=== PATIENT | male | born 1965 | race Caucasian/White ===

== ENCOUNTER 2018-05-03 17:58 | Emergency (ER) | payer OTHER ==
[~2018-05-03] VITALS: Ht 170.2 cm; Wt 195.9 kg
[~2018-05-03 17:58] MED LIST: ADAL40PEN; ALBIPROI INH; ALBU2.5V5 NEB; ALBU90OI INH; ALBU90OI61 INH; AMLO10 PO; AZIT250 PO; AZIT500 PO; BUME1 PO; BUME2 PO; BUPR150ER PO; BUSP10 PO; Bactrim 400-801 EACH PO; CEFP200 PO; CELEXA; CEPH500 PO; CIPR500 PO; CITA20 PO; CLIN150 PO; CLIN300 PO; CLOBETTC TOP; CLOT1TC TOP; COMBIVENT RESPIM4 GM IH; CYCL10 PO; Cleocin HCl300 MG PO; DICYCLOMINE HCL PO; DULO60 PO; Diflucan100 MG PO; ERYT.5TO LEFTEYE; ESCI10; ESCI20 PO; FLUC150A PO; FLUC200 PO; FLUO.05TC TOP; FLUSAL2505 IH; FLUSAL2505 INH; FOLI1 PO; FURO40 PO; GUAI600T33 PO; Gas-X80 MG PO; HYDACE25S PR; HYDACE5 PO; HYDCHL25 PO; HYDMOR2 PO; HYOS.125 SL; IBUP800 PO; IRON325 MG PO; LACT10SY PO; LEVFLO250 PO; LEVO750 PO; LISI10 PO; LORA1 PO; LOSA50 PO; LOSARTAN-HCTZ1 EAC1 PO; MAGIC MOUTHWASH; MELA3 PO; METO100 PO; METO25ER PO; METO50 PO; MUPI2TO TOP; NAPR500 PO; NEBI5 PO; NYST100P TOP; OMEPRAZOLE MAGN20 MG PO; ONDA4 PO; OXYACE5T PO; OXYACE7.5T PO; POTCHL10ER PO; POTCHL20ER PO; PRED10 PO; PRED20 PO; PROM25 PO; Percocet 5-3251 EACH PO; Prednisone20 MG PO; RESPIMAT; RXCEPH500 PO; RXCLIN PO; RXCYCL10 PO; RXHYDACE PO; RXONDA4ODT MM; RXOXYACE PO; RXPROCODSY PO; RXSULTRIDS PO; SACC250C PO; SIME80CH PO; SULTRIDS PO; TESTOSTERON CYP IM; TESTOSTERONE CYPIONA PO; TRAM50 PO; VITAMIN D22000 UNIT PO; VITS; Verotin-Gr Cap1 EACH PO; ZINCODVICR TOP
[2018-05-03 18:57] LABS: BASOPHILS ABSOLUTE AUTO 0.05 K/mm3 (0.00-0.23); BASOPHILS PERCENT AUTO 0 % (0-2); EOSINOPHILS ABSOLUTE AUTO 0.13 K/mm3 (0.00-0.68); EOSINOPHILS PERCENT AUTO 1 % (0-6); Hematocrit 43.1 % (37.0-53.0); Hemoglobin 14.2 g/dL (13.5-17.5); IMMATURE GRAN ABSOLUTE AUTO 0.04 K/mm3 (0.00-0.10); IMMATURE GRAN PERCENT AUTO 0 % (0-1); LYMPHOCYTES ABSOLUTE AUTO 1.99 K/mm3 (0.84-5.20); LYMPHOCYTES PERCENT AUTO 15 % (21-46); MONOCYTES ABSOLUTE AUTO 0.97 K/mm3 (0.16-1.47); MONOCYTES PERCENT AUTO 7 % (4-13); Mean Corpuscular HGB 30.7 pg (26.0-34.0); Mean Corpuscular HGB Conc 32.9 g/dL (31.5-36.5); Mean Corpuscular Volume 93 fL (80-100); Mean Platelet Volume 10.1 fL (9.1-12.4); NEUTROPHILS PERCENT AUTO 76 % (41-73); Platelet Count 173 K/mm3 (150-400); RDW Coefficient Variation 12.6 % (11.7-14.2); RDW Standard Deviation 43.1 fL (35.1-46.3); Red Blood Cell Count 4.63 M/mm3 (4.30-5.90); White Blood Cell Count 13.18 K/mm3 (4.00-11.30)
[2018-05-03 19:25] LABS: Alanine Aminotransfer (ALT/SGP 36 U/L (12-78); Albumin, Blood 3.6 g/dL (3.4-5.0); Albumin/Globulin Ratio 0.9 (0.8-1.8); Alk Phos 96 U/L (50-136); Anion Gap 5 mmol/L (6-16); Aspartate Aminotrans (AST/SGOT 18 U/L (12-37); Bilirubin, Total 1.3 mg/dL (0.1-1.0); Blood Urea Nitrogen 9 mg/dL (8-24); Bun/Creatinine Ratio 14.5 (12.0-20.0); CO2, Blood 31 mmol/L (21-32); Calcium, Blood 8.6 mg/dL (8.5-10.1); Chloride, Blood 101 mmol/L (98-108); Creatinine, Blood 0.62 mg/dL (0.60-1.20); Globulin, Blood 4.1 g/dL (2.2-4.0); Glomerular Filtration Rate >60 (60-); Glucose, Blood 100 mg/dL (70-99); Potassium, Blood 3.7 mmol/L (3.5-5.5); Sodium, Blood 137 mmol/L (136-145); Total Protein, Blood 7.7 g/dL (6.4-8.2)
[2018-05-03 23:31] LABS: Influenza A Negative (NEGATIVE); Influenza B Negative (NEGATIVE)
== END 2018-05-03 23:30 | disposition home or self-care (01) ==
LOC: ER 17:58
PROVIDERS: Emergency Medicine; Physician Assistant
DX: R53.81 Other malaise (principal); R53.83 Other fatigue; D72.829 Elevated white blood cell count, unspecified; R52 Pain, unspecified; I11.0 Hypertensive heart disease with heart failure; I50.9 Heart failure, unspecified; J45.909 Unspecified asthma, uncomplicated; J44.9 Chronic obstructive pulmonary disease, unspecified; F32.9 Major depressive disorder, single episode, unspecified; F41.9 Anxiety disorder, unspecified; E66.01 Morbid (severe) obesity due to excess calories; M19.90 Unspecified osteoarthritis, unspecified site; K76.0 Fatty (change of) liver, not elsewhere classified; Z88.0 Allergy status to penicillin; Z88.2 Allergy status to sulfonamides; Z88.6 Allergy status to analgesic agent; Z88.8 Allergy status to other drugs, medicaments and biological substances; Z79.1 Long term (current) use of non-steroidal anti-inflammatories (NSAID); Z79.899 Other long term (current) drug therapy
CPT/HCPCS: 36415; 71046; 80053; 84484; 85025; 87804; 96374; 99283-25; J1885

== ENCOUNTER 2018-05-31 10:50 | Observation (INO) | payer OTHER ==
[~2018-05-31] VITALS: Ht 170.2 cm; Wt 195.0 kg
[2018-05-31 11:31] LABS: BASOPHILS ABSOLUTE AUTO 0.04 K/mm3 (0.00-0.23); BASOPHILS PERCENT AUTO 0 % (0-2); EOSINOPHILS ABSOLUTE AUTO 0.04 K/mm3 (0.00-0.68); EOSINOPHILS PERCENT AUTO 0 % (0-6); Hematocrit 44.3 % (37.0-53.0); Hemoglobin 14.6 g/dL (13.5-17.5); IMMATURE GRAN ABSOLUTE AUTO 0.03 K/mm3 (0.00-0.10); IMMATURE GRAN PERCENT AUTO 0 % (0-1); LYMPHOCYTES ABSOLUTE AUTO 1.45 K/mm3 (0.84-5.20); LYMPHOCYTES PERCENT AUTO 16 % (21-46); MONOCYTES ABSOLUTE AUTO 0.57 K/mm3 (0.16-1.47); MONOCYTES PERCENT AUTO 6 % (4-13); Mean Corpuscular HGB 30.7 pg (26.0-34.0); Mean Corpuscular Volume 93 fL (80-100); Mean Platelet Volume 10.5 fL (9.1-12.4); NEUTROPHILS ABSOLUTE AUTO 7.08 K/mm3 (1.96-9.15); NEUTROPHILS PERCENT AUTO 77 % (41-73); Platelet Count 146 K/mm3 (150-400); RDW Coefficient Variation 12.4 % (11.7-14.2); Red Blood Cell Count 4.75 M/mm3 (4.30-5.90); White Blood Cell Count 9.21 K/mm3 (4.00-11.30)
[2018-05-31 11:53] LABS: Alanine Aminotransfer (ALT/SGP 47 U/L (12-78); Albumin, Blood 3.6 g/dL (3.4-5.0); Albumin/Globulin Ratio 0.9 (0.8-1.8); Alk Phos 91 U/L (50-136); Anion Gap 5 mmol/L (6-16); Aspartate Aminotrans (AST/SGOT 20 U/L (12-37); Bilirubin, Total 1.7 mg/dL (0.1-1.0); Blood Urea Nitrogen 8 mg/dL (8-24); Bun/Creatinine Ratio 11.9 (12.0-20.0); CO2, Blood 30 mmol/L (21-32); Calcium, Blood 8.7 mg/dL (8.5-10.1); Chloride, Blood 102 mmol/L (98-108); Creatinine, Blood 0.68 mg/dL (0.60-1.20); Globulin, Blood 3.8 g/dL (2.2-4.0); Glomerular Filtration Rate >60 (60-); Glucose, Blood 91 mg/dL (70-99); Potassium, Blood 3.7 mmol/L (3.5-5.5); Sodium, Blood 137 mmol/L (136-145); Total Protein, Blood 7.4 g/dL (6.4-8.2); Troponin I <0.015 ng/mL (0.000-0.040)
[2018-05-31 14:49] LABS: PCO2 Arterial 53.1 mmHg (35-45); PO2 Arterial 54.2 mmHg (80-100); pH Blood Arterial 7.39 (7.35-7.45)
[2018-05-31 15:40] LABS: Influenza A Negative (NEGATIVE); Influenza B Negative (NEGATIVE)
[2018-05-31] MEDS ORDERED: DULERA 100 MCG/13 GM INH (16:11)
--- NOTE | 2018-05-31 18:41 | NUR ---
PT ARRIVED TO MEDICAL FLOOR VIA W/C.
[2018-06-01 04:41] LABS: PCO2 Arterial 54.4 mmHg (35-45); PO2 Arterial 63.5 mmHg (80-100); pH Blood Arterial 7.38 (7.35-7.45)
--- NOTE | 2018-06-01 05:07 | NUR ---
NOC SHIFT SUMMARY PT HAS BEEN PLEASANT AND COOPERATIVE WITH CARE THIS NIGHT. HE IS AAOX4. RESP HAVE BEEN EVEN AND UNLABORED. HE DOES SLEEP RECLINING IN CHAIR WITH BIPAP ON AND 1L O2 BLED IN. VSS. TREATED FOR CHRONIC HIP PAIN WITH TORADOL AND ROXICODONE. PAIN MUCH IMPROVED PER PT. APPEARS IN NO ACUTE DISTRESS. NO ACUTE CHANGES THIS NIGHT.
[2018-06-01] MEDS ORDERED: OXYC10TA19 PO (12:49)
--- NOTE | 2018-06-01 13:30 | NUR ---
132 PT DISHCARGED HOME VIA PERSONAL VEHICLE ACCOMPANIED AND DRIVEN BY . PT TO FACILITY ENTRANCE VIA W/C BY PER HER REQUEST. IV REMOVED, D/C PAPERWORK REVIEWED WITH PT AND COPY PROVIDED. NO NEW RX. PT WITH CLEAR LUNGS, ON RA THROGHOUT SHIFT. NO NEW CHANGES.
== END 2018-06-01 13:25 | disposition home or self-care (01) ==
LOC: ER 10:50 → MEDS 10:51 → ER 10:51 → MEDS 10:51 → ER 15:02 → MEDS 15:02 → ENPENDDIS 06-01 11:30 → MEDS 06-01 13:25
PROVIDERS: Emergency Medicine; Physician Assistant; ADMIT Internal Medicine Endocrinology, Diabetes & Metabolism
DX: J96.21 Acute and chronic respiratory failure with hypoxia (principal); J96.22 Acute and chronic respiratory failure with hypercapnia; L40.50 Arthropathic psoriasis, unspecified; H57.89 Other specified disorders of eye and adnexa; J44.9 Chronic obstructive pulmonary disease, unspecified; F32.9 Major depressive disorder, single episode, unspecified; K21.9 Gastro-esophageal reflux disease without esophagitis; I50.30 Unspecified diastolic (congestive) heart failure; I45.10 Unspecified right bundle-branch block; Z99.89 Dependence on other enabling machines and devices; E66.2 Morbid (severe) obesity with alveolar hypoventilation; Z68.44 Body mass index [BMI] 60.0-69.9, adult; Z88.6 Allergy status to analgesic agent; Z88.0 Allergy status to penicillin; Z91.048 Other nonmedicinal substance allergy status; Z88.2 Allergy status to sulfonamides; Z88.8 Allergy status to other drugs, medicaments and biological substances; Z79.899 Other long term (current) drug therapy
CPT/HCPCS: 36415; 36600; 71046; 80053; 82803; 84484; 85025; 87081; 87804; 93005; 93010; 94640; 94644; 94760; 94762; 96372; 96374; 96376; 99285-25; G0378; J1650; J1885

== ENCOUNTER 2018-09-15 14:54 | Emergency (ER) | payer OTHER ==
[~2018-09-15] VITALS: Ht 170.2 cm; Wt 199.6 kg
[~2018-09-15 14:54] MED LIST changes: +DULERA 100 MCG/13 GM INH; +OXYC10TA19 PO
[2018-09-15] MEDS ORDERED: Prednisone20 MG PO (16:03)
== END 2018-09-15 16:16 | disposition home or self-care (01) ==
LOC: ER 14:54
DX: M75.51 Bursitis of right shoulder (principal); Z88.0 Allergy status to penicillin; Z88.2 Allergy status to sulfonamides; Z88.1 Allergy status to other antibiotic agents; Z88.6 Allergy status to analgesic agent; Z88.8 Allergy status to other drugs, medicaments and biological substances; Z79.899 Other long term (current) drug therapy; I11.0 Hypertensive heart disease with heart failure; I50.9 Heart failure, unspecified; J44.9 Chronic obstructive pulmonary disease, unspecified; F32.9 Major depressive disorder, single episode, unspecified; E66.01 Morbid (severe) obesity due to excess calories
CPT/HCPCS: 73030; 96372; 99283-25; J1885

== ENCOUNTER → 2019-09-09 | Outpatient (CLI) | payer OTHER ==
[~2019-09-09] MED LIST changes: -VITAMIN D22000 UNIT PO; +VITAMIN D250000 UNIT PO
[2019-09-09 14:26] LABS: BASOPHILS ABSOLUTE AUTO 0.04 K/mm3 (0.00-0.23); BASOPHILS PERCENT AUTO 1 % (0-2); EOSINOPHILS ABSOLUTE AUTO 0.18 K/mm3 (0.00-0.68); EOSINOPHILS PERCENT AUTO 3 % (0-6); Hematocrit 43.9 % (37.0-53.0); IMMATURE GRAN ABSOLUTE AUTO 0.02 K/mm3 (0.00-0.10); IMMATURE GRAN PERCENT AUTO 0 % (0-1); LYMPHOCYTES ABSOLUTE AUTO 1.29 K/mm3 (0.84-5.20); LYMPHOCYTES PERCENT AUTO 18 % (21-46); MONOCYTES ABSOLUTE AUTO 0.43 K/mm3 (0.16-1.47); MONOCYTES PERCENT AUTO 6 % (4-13); Mean Corpuscular HGB Conc 31.9 g/dL (31.5-36.5); Mean Corpuscular Volume 94 fL (80-100); Mean Platelet Volume 10.1 fL (9.1-12.4); NEUTROPHILS ABSOLUTE AUTO 5.37 K/mm3 (1.96-9.15); NEUTROPHILS PERCENT AUTO 73 % (41-73); Platelet Count 176 K/mm3 (150-400); RDW Coefficient Variation 12.7 % (11.7-14.2); RDW Standard Deviation 43.6 fL (35.1-46.3); Red Blood Cell Count 4.66 M/mm3 (4.30-5.90); White Blood Cell Count 7.33 K/mm3 (4.00-11.30)
[2019-09-09 15:03] LABS: Alanine Aminotransfer (ALT/SGP 35 U/L (12-78); Albumin, Blood 3.5 g/dL (3.4-5.0); Albumin/Globulin Ratio 0.9 (0.8-1.8); Alk Phos 103 U/L (50-136); Anion Gap 1 mmol/L (6-16); Aspartate Aminotrans (AST/SGOT 27 U/L (12-37); Bilirubin, Total 0.7 mg/dL (0.1-1.0); Blood Urea Nitrogen 17 mg/dL (8-24); Bun/Creatinine Ratio 26.5 (12.0-20.0); CO2, Blood 35 mmol/L (21-32); Calcium, Blood 8.8 mg/dL (8.5-10.1); Chloride, Blood 99 mmol/L (98-108); Creatinine, Blood 0.64 mg/dL (0.60-1.20); Globulin, Blood 3.9 g/dL (2.2-4.0); Glomerular Filtration Rate >60 (60-); Glucose, Blood 98 mg/dL (70-99); Potassium, Blood 4.3 mmol/L (3.5-5.5); Sodium, Blood 135 mmol/L (136-145); Total Protein, Blood 7.4 g/dL (6.4-8.2)
== END | disposition home or self-care (01) ==
LOC: LAB UCHC 13:25 → LAB SHORT 13:25 → LAB FUT 09-08 13:00 → EDSTATUS 09-08 13:00
PROVIDERS: Internal Medicine
DX: I50.32 Chronic diastolic (congestive) heart failure (principal)
CPT/HCPCS: 80053; 83880; 85025

== ENCOUNTER 2020-01-26 00:15 | Day surgery (SDC) | payer OTHER ==
[~2020-01-26 00:15] MED LIST changes: +COMBIVENT RESPIM4 G1 INH; -COMBIVENT RESPIM4 GM IH; +FERRO-TIME325 MG PO; -IRON325 MG PO
[2020-01-26 14:31] LABS: BASOPHILS ABSOLUTE AUTO 0.05 K/mm3 (0.00-0.23); BASOPHILS PERCENT AUTO 1 % (0-2); EOSINOPHILS ABSOLUTE AUTO 0.19 K/mm3 (0.00-0.68); EOSINOPHILS PERCENT AUTO 3 % (0-6); Hemoglobin 14.2 g/dL (13.5-17.5); IMMATURE GRAN ABSOLUTE AUTO 0.01 K/mm3 (0.00-0.10); IMMATURE GRAN PERCENT AUTO 0 % (0-1); LYMPHOCYTES ABSOLUTE AUTO 1.39 K/mm3 (0.84-5.20); LYMPHOCYTES PERCENT AUTO 23 % (21-46); MONOCYTES ABSOLUTE AUTO 0.39 K/mm3 (0.16-1.47); MONOCYTES PERCENT AUTO 6 % (4-13); Mean Corpuscular HGB 29.6 pg (26.0-34.0); Mean Corpuscular HGB Conc 32.3 g/dL (31.5-36.5); Mean Corpuscular Volume 92 fL (80-100); Mean Platelet Volume 10.3 fL (9.1-12.4); NEUTROPHILS ABSOLUTE AUTO 4.07 K/mm3 (1.96-9.15); NEUTROPHILS PERCENT AUTO 67 % (41-73); Platelet Count 147 K/mm3 (150-400); RDW Coefficient Variation 12.6 % (11.7-14.2); RDW Standard Deviation 42.8 fL (35.1-46.3); Red Blood Cell Count 4.79 M/mm3 (4.30-5.90)
[2020-01-26 14:53] LABS: Alanine Aminotransfer (ALT/SGP 24 U/L (12-78); Albumin, Blood 3.5 g/dL (3.4-5.0); Albumin/Globulin Ratio 0.9 (0.8-1.8); Alk Phos 102 U/L (50-136); Anion Gap 6 mmol/L (6-16); Aspartate Aminotrans (AST/SGOT 16 U/L (12-37); Bilirubin, Total 0.8 mg/dL (0.1-1.0); Blood Urea Nitrogen 10 mg/dL (8-24); Bun/Creatinine Ratio 17.6 (12.0-20.0); CO2, Blood 33 mmol/L (21-32); Calcium, Blood 9.3 mg/dL (8.5-10.1); Chloride, Blood 101 mmol/L (98-108); Creatinine, Blood 0.57 mg/dL (0.60-1.20); Globulin, Blood 3.7 g/dL (2.2-4.0); Glomerular Filtration Rate >60 (60-); Glucose, Blood 93 mg/dL (70-99); Sodium, Blood 140 mmol/L (136-145); Total Protein, Blood 7.2 g/dL (6.4-8.2)
--- NOTE | 2020-01-26 15:26 | NUR ---
PT C/O ITCHING, NO HIVES AT PRESENT, BENADRYL GIVEN PER PT REQUEST AND ORDERS.
--- NOTE | 2020-01-26 16:23 | NUR ---
PT STATES HE IS NOT FEELING ITCHY AT THIS TIME.
== END 2020-01-26 17:11 | disposition home or self-care (01) ==
LOC: ATC 00:15
PROVIDERS: Internal Medicine Rheumatology
DX: L40.50 Arthropathic psoriasis, unspecified (principal); E66.01 Morbid (severe) obesity due to excess calories; G47.33 Obstructive sleep apnea (adult) (pediatric); I11.0 Hypertensive heart disease with heart failure; I50.32 Chronic diastolic (congestive) heart failure; J44.9 Chronic obstructive pulmonary disease, unspecified; K21.9 Gastro-esophageal reflux disease without esophagitis; Z68.44 Body mass index [BMI] 60.0-69.9, adult; Z88.0 Allergy status to penicillin; Z88.2 Allergy status to sulfonamides; Z88.1 Allergy status to other antibiotic agents; Z88.8 Allergy status to other drugs, medicaments and biological substances; Z79.899 Other long term (current) drug therapy; F32.9 Major depressive disorder, single episode, unspecified
CPT/HCPCS: 80053; 85025; 85651; 96413; 96415; J7050; Q0163; Q5103

== ENCOUNTER 2020-04-16 01:06 | Day surgery (SDC) | payer OTHER ==
--- NOTE | 2020-04-08 11:42 | NUR ---
PT CALLED TO CANCEL HIS APPOINTMENT IN THE [facility] TODAY. HE IS CURRENTLY ILL.
--- NOTE | 2020-04-16 13:56 | NUR ---
LABS DRAWN FROM IV START PER HOSPITAL PROTOCOL
[2020-04-16 14:32] LABS: BASOPHILS ABSOLUTE AUTO 0.03 K/mm3 (0.00-0.23); BASOPHILS PERCENT AUTO 1 % (0-2); EOSINOPHILS ABSOLUTE AUTO 0.22 K/mm3 (0.00-0.68); EOSINOPHILS PERCENT AUTO 3 % (0-6); Hematocrit 46.7 % (37.0-53.0); Hemoglobin 14.6 g/dL (13.5-17.5); IMMATURE GRAN ABSOLUTE AUTO 0.03 K/mm3 (0.00-0.10); IMMATURE GRAN PERCENT AUTO 1 % (0-1); LYMPHOCYTES ABSOLUTE AUTO 1.36 K/mm3 (0.84-5.20); LYMPHOCYTES PERCENT AUTO 21 % (21-46); MONOCYTES ABSOLUTE AUTO 0.42 K/mm3 (0.16-1.47); MONOCYTES PERCENT AUTO 6 % (4-13); Mean Corpuscular HGB 28.9 pg (26.0-34.0); Mean Corpuscular HGB Conc 31.3 g/dL (31.5-36.5); Mean Corpuscular Volume 93 fL (80-100); Mean Platelet Volume 10.5 fL (9.1-12.4); NEUTROPHILS ABSOLUTE AUTO 4.46 K/mm3 (1.96-9.15); NEUTROPHILS PERCENT AUTO 68 % (41-73); Platelet Count 156 K/mm3 (150-400); RDW Coefficient Variation 12.9 % (11.7-14.2); RDW Standard Deviation 43.5 fL (35.1-46.3); Red Blood Cell Count 5.05 M/mm3 (4.30-5.90); White Blood Cell Count 6.52 K/mm3 (4.00-11.30)
[2020-04-16 14:52] LABS: Alanine Aminotransfer (ALT/SGP 20 U/L (12-78); Albumin, Blood 3.2 g/dL (3.4-5.0); Albumin/Globulin Ratio 0.8 (0.8-1.8); Alk Phos 103 U/L (50-136); Anion Gap 2 mmol/L (6-16); Aspartate Aminotrans (AST/SGOT 14 U/L (12-37); Bilirubin, Total 0.5 mg/dL (0.1-1.0); Blood Urea Nitrogen 11 mg/dL (8-24); Bun/Creatinine Ratio 22.3 (12.0-20.0); CO2, Blood 38 mmol/L (21-32); Calcium, Blood 8.5 mg/dL (8.5-10.1); Chloride, Blood 101 mmol/L (98-108); Creatinine, Blood 0.49 mg/dL (0.60-1.20); Globulin, Blood 4.1 g/dL (2.2-4.0); Glomerular Filtration Rate >60 (60-); Glucose, Blood 100 mg/dL (70-99); Potassium, Blood 3.5 mmol/L (3.5-5.5); Sodium, Blood 141 mmol/L (136-145); Total Protein, Blood 7.3 g/dL (6.4-8.2)
== END 2020-04-16 16:26 | disposition home or self-care (01) ==
LOC: ATC 01:06
PROVIDERS: Internal Medicine Rheumatology
DX: L40.50 Arthropathic psoriasis, unspecified (principal)
CPT/HCPCS: 80053; 85025; 85651; 96413; 96415; A9270; J7050; Q5103

== ENCOUNTER 2020-06-14 01:09 | Day surgery (SDC) | payer OTHER ==
[~2020-06-14] VITALS: Wt 196.7 kg
[2020-06-14 15:02] LABS: BASOPHILS ABSOLUTE AUTO 0.05 K/mm3 (0.00-0.23); BASOPHILS PERCENT AUTO 1 % (0-2); EOSINOPHILS ABSOLUTE AUTO 0.23 K/mm3 (0.00-0.68); EOSINOPHILS PERCENT AUTO 4 % (0-6); IMMATURE GRAN ABSOLUTE AUTO 0.02 K/mm3 (0.00-0.10); IMMATURE GRAN PERCENT AUTO 0 % (0-1); LYMPHOCYTES ABSOLUTE AUTO 1.52 K/mm3 (0.84-5.20); LYMPHOCYTES PERCENT AUTO 23 % (21-46); MONOCYTES ABSOLUTE AUTO 0.48 K/mm3 (0.16-1.47); MONOCYTES PERCENT AUTO 7 % (4-13); Mean Corpuscular HGB 29.8 pg (26.0-34.0); Mean Corpuscular HGB Conc 32.6 g/dL (31.5-36.5); Mean Corpuscular Volume 92 fL (80-100); NEUTROPHILS ABSOLUTE AUTO 4.19 K/mm3 (1.96-9.15); NEUTROPHILS PERCENT AUTO 65 % (41-73); Platelet Count 151 K/mm3 (150-400); RDW Coefficient Variation 13.4 % (11.7-14.2); RDW Standard Deviation 45.2 fL (35.1-46.3); White Blood Cell Count 6.49 K/mm3 (4.00-11.30)
[2020-06-14 15:25] LABS: Alanine Aminotransfer (ALT/SGP 21 U/L (12-78); Albumin, Blood 3.1 g/dL (3.4-5.0); Albumin/Globulin Ratio 0.8 (0.8-1.8); Alk Phos 99 U/L (50-136); Anion Gap 3 mmol/L (6-16); Aspartate Aminotrans (AST/SGOT 14 U/L (12-37); Bilirubin, Total 0.7 mg/dL (0.1-1.0); Blood Urea Nitrogen 13 mg/dL (8-24); Bun/Creatinine Ratio 23.4 (12.0-20.0); CO2, Blood 36 mmol/L (21-32); Calcium, Blood 8.8 mg/dL (8.5-10.1); Chloride, Blood 101 mmol/L (98-108); Creatinine, Blood 0.56 mg/dL (0.60-1.20); Glomerular Filtration Rate >60 (60-); Glucose, Blood 94 mg/dL (70-99); Potassium, Blood 4.1 mmol/L (3.5-5.5); Sodium, Blood 140 mmol/L (136-145); Total Protein, Blood 7.1 g/dL (6.4-8.2)
--- NOTE | 2020-06-14 16:45 | NUR ---
PT C/O ITCHING, ADDITIONAL 25 MG BENADRYL PO GIVEN (PT HAD REQUESTED ONLY 25 MG BENADRYL AT START OF INFUSION, BUT 50 MG HAD BEEN ORDERED). SLOWED RATE OF INFUSION TO 100CC/HR. WILL MONITOR FOR CHANGES. NAD
== END 2020-06-14 17:30 | disposition home or self-care (01) ==
LOC: ATC 01:09
PROVIDERS: Internal Medicine Rheumatology
DX: L40.50 Arthropathic psoriasis, unspecified (principal); G89.4 Chronic pain syndrome; M16.0 Bilateral primary osteoarthritis of hip; I11.0 Hypertensive heart disease with heart failure; I50.32 Chronic diastolic (congestive) heart failure; E55.9 Vitamin D deficiency, unspecified; E53.8 Deficiency of other specified B group vitamins; E61.1 Iron deficiency; K91.2 Postsurgical malabsorption, not elsewhere classified; Z68.30 Body mass index [BMI] 30.0-30.9, adult; K59.00 Constipation, unspecified; F41.8 Other specified anxiety disorders; G47.33 Obstructive sleep apnea (adult) (pediatric); E66.01 Morbid (severe) obesity due to excess calories; E78.5 Hyperlipidemia, unspecified; J45.909 Unspecified asthma, uncomplicated; Q55.64 Hidden penis; Z87.440 Personal history of urinary (tract) infections; Z98.84 Bariatric surgery status; Z88.0 Allergy status to penicillin; Z88.2 Allergy status to sulfonamides; Z88.8 Allergy status to other drugs, medicaments and biological substances; Z86.11 Personal history of tuberculosis; Z86.14 Personal history of Methicillin resistant Staphylococcus aureus infection
CPT/HCPCS: 80053; 85025; 85651; 96413; 96415; A9270; J7050; Q5103

== ENCOUNTER 2020-07-09 16:02 | Emergency (ER) | payer OTHER ==
[~2020-07-09] VITALS: Ht 170.2 cm; Wt 195.0 kg
[2020-07-09 16:55] LABS: BASOPHILS ABSOLUTE AUTO 0.05 K/mm3 (0.00-0.23); BASOPHILS PERCENT AUTO 1 % (0-2); EOSINOPHILS ABSOLUTE AUTO 0.13 K/mm3 (0.00-0.68); EOSINOPHILS PERCENT AUTO 2 % (0-6); Hematocrit 41.1 % (37.0-53.0); Hemoglobin 13.2 g/dL (13.5-17.5); IMMATURE GRAN ABSOLUTE AUTO 0.04 K/mm3 (0.00-0.10); IMMATURE GRAN PERCENT AUTO 1 % (0-1); LYMPHOCYTES ABSOLUTE AUTO 1.23 K/mm3 (0.84-5.20); LYMPHOCYTES PERCENT AUTO 18 % (21-46); MONOCYTES ABSOLUTE AUTO 0.45 K/mm3 (0.16-1.47); MONOCYTES PERCENT AUTO 7 % (4-13); Mean Corpuscular HGB 30.3 pg (26.0-34.0); Mean Corpuscular HGB Conc 32.1 g/dL (31.5-36.5); Mean Corpuscular Volume 94 fL (80-100); Mean Platelet Volume 10.1 fL (9.1-12.4); NEUTROPHILS ABSOLUTE AUTO 4.82 K/mm3 (1.96-9.15); NEUTROPHILS PERCENT AUTO 72 % (41-73); Platelet Count 145 K/mm3 (150-400); RDW Standard Deviation 44.8 fL (35.1-46.3); Red Blood Cell Count 4.36 M/mm3 (4.30-5.90); White Blood Cell Count 6.72 K/mm3 (4.00-11.30)
[2020-07-09 17:29] LABS: Troponin I <0.015 ng/mL (0.000-0.040)
[2020-07-09 17:44] LABS: Alanine Aminotransfer (ALT/SGP 20 U/L (12-78); Albumin, Blood 3.1 g/dL (3.4-5.0); Albumin/Globulin Ratio 0.9 (0.8-1.8); Alk Phos 98 U/L (50-136); Anion Gap -1 mmol/L (6-16); Aspartate Aminotrans (AST/SGOT 13 U/L (12-37); Bilirubin, Total 0.6 mg/dL (0.1-1.0); Blood Urea Nitrogen 11 mg/dL (8-24); Bun/Creatinine Ratio 18.3 (12.0-20.0); CO2, Blood 38 mmol/L (21-32); Calcium, Blood 8.5 mg/dL (8.5-10.1); Chloride, Blood 99 mmol/L (98-108); Globulin, Blood 3.6 g/dL (2.2-4.0); Glomerular Filtration Rate >60 (60-); Glucose, Blood 100 mg/dL (70-99); Potassium, Blood 4.2 mmol/L (3.5-5.5); Sodium, Blood 136 mmol/L (136-145); Total Protein, Blood 6.7 g/dL (6.4-8.2)
[2020-07-09] MEDS ORDERED: BUME1 (19:57)
[2020-07-09] MEDS ORDERED: SPIR25 PO (19:58)
[2020-07-09] MEDS ORDERED: Prednisone20 MG PO (20:29)
== END 2020-07-09 20:55 | disposition home or self-care (01) ==
LOC: ER 16:02
PROVIDERS: Physician Assistant
DX: R06.00 Dyspnea, unspecified (principal); Z79.899 Other long term (current) drug therapy
CPT/HCPCS: 36415; 71045; 80053; 83880; 84484; 85025; 93005; 93010; 99285-25

== ENCOUNTER 2020-09-08 04:48 | Day surgery (SDC) | payer OTHER ==
[~2020-09-08] VITALS: Wt 195.7 kg
[~2020-09-08 04:48] MED LIST changes: +BUME1; +SPIR25 PO
[2020-09-08 14:35] LABS: BASOPHILS ABSOLUTE AUTO 0.05 K/mm3 (0.00-0.23); BASOPHILS PERCENT AUTO 1 % (0-2); EOSINOPHILS ABSOLUTE AUTO 0.27 K/mm3 (0.00-0.68); EOSINOPHILS PERCENT AUTO 4 % (0-6); Hematocrit 45.2 % (37.0-53.0); Hemoglobin 14.8 g/dL (13.5-17.5); IMMATURE GRAN ABSOLUTE AUTO 0.02 K/mm3 (0.00-0.10); IMMATURE GRAN PERCENT AUTO 0 % (0-1); LYMPHOCYTES ABSOLUTE AUTO 1.51 K/mm3 (0.84-5.20); LYMPHOCYTES PERCENT AUTO 21 % (21-46); MONOCYTES ABSOLUTE AUTO 0.47 K/mm3 (0.16-1.47); MONOCYTES PERCENT AUTO 7 % (4-13); Mean Corpuscular HGB Conc 32.7 g/dL (31.5-36.5); Mean Corpuscular Volume 92 fL (80-100); Mean Platelet Volume 10.5 fL (9.1-12.4); NEUTROPHILS ABSOLUTE AUTO 4.89 K/mm3 (1.96-9.15); NEUTROPHILS PERCENT AUTO 68 % (41-73); Platelet Count 153 K/mm3 (150-400); RDW Coefficient Variation 12.8 % (11.7-14.2); RDW Standard Deviation 42.5 fL (35.1-46.3); Red Blood Cell Count 4.94 M/mm3 (4.30-5.90); White Blood Cell Count 7.21 K/mm3 (4.00-11.30)
[2020-09-08 14:41] LABS: Alanine Aminotransfer (ALT/SGP 25 U/L (12-78); Albumin, Blood 3.4 g/dL (3.4-5.0); Albumin/Globulin Ratio 0.9 (0.8-1.8); Alk Phos 107 U/L (50-136); Anion Gap 2 mmol/L (6-16); Aspartate Aminotrans (AST/SGOT 15 U/L (12-37); Bilirubin, Total 0.7 mg/dL (0.1-1.0); Blood Urea Nitrogen 14 mg/dL (8-24); Bun/Creatinine Ratio 23.3 (12.0-20.0); CO2, Blood 34 mmol/L (21-32); Calcium, Blood 8.5 mg/dL (8.5-10.1); Chloride, Blood 99 mmol/L (98-108); Globulin, Blood 3.9 g/dL (2.2-4.0); Glomerular Filtration Rate >60 (60-); Glucose, Blood 92 mg/dL (70-99); Potassium, Blood 3.9 mmol/L (3.5-5.5); Sodium, Blood 135 mmol/L (136-145); Total Protein, Blood 7.3 g/dL (6.4-8.2)
== END 2020-09-08 17:08 | disposition home or self-care (01) ==
LOC: ATC 04:48
PROVIDERS: Internal Medicine Rheumatology
DX: L40.50 Arthropathic psoriasis, unspecified (principal); I11.0 Hypertensive heart disease with heart failure; I50.32 Chronic diastolic (congestive) heart failure; G47.33 Obstructive sleep apnea (adult) (pediatric); F41.8 Other specified anxiety disorders; J45.909 Unspecified asthma, uncomplicated; K59.00 Constipation, unspecified; K21.9 Gastro-esophageal reflux disease without esophagitis; E66.01 Morbid (severe) obesity due to excess calories; Z68.44 Body mass index [BMI] 60.0-69.9, adult; Z98.84 Bariatric surgery status; Z88.1 Allergy status to other antibiotic agents; Z88.0 Allergy status to penicillin; Z88.8 Allergy status to other drugs, medicaments and biological substances
CPT/HCPCS: 36415; 80053; 85025; 85651; 96413; 96415; A9270; J7050; Q5103

== ENCOUNTER 2020-09-28 19:06 | Emergency (ER) | payer OTHER ==
[~2020-09-28] VITALS: Ht 170.2 cm; Wt 195.0 kg
[2020-09-28 19:53] LABS: BASOPHILS ABSOLUTE AUTO 0.05 K/mm3 (0.00-0.23); BASOPHILS PERCENT AUTO 1 % (0-2); EOSINOPHILS ABSOLUTE AUTO 0.21 K/mm3 (0.00-0.68); EOSINOPHILS PERCENT AUTO 3 % (0-6); Hematocrit 44.6 % (37.0-53.0); Hemoglobin 14.3 g/dL (13.5-17.5); IMMATURE GRAN ABSOLUTE AUTO 0.02 K/mm3 (0.00-0.10); IMMATURE GRAN PERCENT AUTO 0 % (0-1); LYMPHOCYTES ABSOLUTE AUTO 1.02 K/mm3 (0.84-5.20); LYMPHOCYTES PERCENT AUTO 12 % (21-46); MONOCYTES ABSOLUTE AUTO 0.49 K/mm3 (0.16-1.47); MONOCYTES PERCENT AUTO 6 % (4-13); Mean Corpuscular HGB 29.9 pg (26.0-34.0); Mean Corpuscular HGB Conc 32.1 g/dL (31.5-36.5); Mean Corpuscular Volume 93 fL (80-100); Mean Platelet Volume 10.1 fL (9.1-12.4); NEUTROPHILS ABSOLUTE AUTO 6.54 K/mm3 (1.96-9.15); NEUTROPHILS PERCENT AUTO 79 % (41-73); Platelet Count 144 K/mm3 (150-400); RDW Coefficient Variation 12.7 % (11.7-14.2); RDW Standard Deviation 43.7 fL (35.1-46.3); Red Blood Cell Count 4.78 M/mm3 (4.30-5.90); White Blood Cell Count 8.33 K/mm3 (4.00-11.30)
[2020-09-28 20:12] LABS: Alanine Aminotransfer (ALT/SGP 18 U/L (12-78); Albumin, Blood 3.2 g/dL (3.4-5.0); Albumin/Globulin Ratio 0.8 (0.8-1.8); Alk Phos 106 U/L (50-136); Anion Gap 2 mmol/L (6-16); Aspartate Aminotrans (AST/SGOT 12 U/L (12-37); Bilirubin, Total 0.7 mg/dL (0.1-1.0); Blood Urea Nitrogen 11 mg/dL (8-24); Bun/Creatinine Ratio 15.8 (12.0-20.0); CO2, Blood 35 mmol/L (21-32); Calcium, Blood 8.9 mg/dL (8.5-10.1); Chloride, Blood 102 mmol/L (98-108); Globulin, Blood 4.1 g/dL (2.2-4.0); Glomerular Filtration Rate >60 (60-); Glucose, Blood 102 mg/dL (70-99); Potassium, Blood 3.8 mmol/L (3.5-5.5); Sodium, Blood 139 mmol/L (136-145); Total Protein, Blood 7.3 g/dL (6.4-8.2)
[2020-09-28 20:48] LABS: Base Excess Venous 13.2 mmol/L; Bicarbonate Venous 33.3 mmol/L (24.0-30.0); PCO2 Venous 79.1 mmHg (38-42); PO2 Venous 123 mmHg (38-42); pH Blood Venous 7.31 (7.34-7.37)
== END 2020-09-29 01:01 | disposition home or self-care (01) ==
LOC: ER 19:06
PROVIDERS: Physician Assistant
DX: J18.9 Pneumonia, unspecified organism (principal); R09.02 Hypoxemia; R06.89 Other abnormalities of breathing; I11.0 Hypertensive heart disease with heart failure; I50.9 Heart failure, unspecified; J44.9 Chronic obstructive pulmonary disease, unspecified; Z79.899 Other long term (current) drug therapy
CPT/HCPCS: 36415; 71046; 80053; 82803; 83880; 85025; 85379; 93005; 93010; 96365; 96368; 99285-25; J0456; J0696; J7050

== ENCOUNTER 2020-11-05 01:27 | Day surgery (SDC) | payer OTHER ==
[2020-11-05 15:12] LABS: Hematocrit 41.1 % (37.0-53.0); Hemoglobin 13.3 g/dL (13.5-17.5); Mean Corpuscular HGB 30.1 pg (26.0-34.0); Mean Corpuscular HGB Conc 32.4 g/dL (31.5-36.5); Mean Corpuscular Volume 93 fL (80-100); Mean Platelet Volume 10.3 fL (9.1-12.4); Platelet Count 161 K/mm3 (150-400); RDW Standard Deviation 43.8 fL (35.1-46.3); Red Blood Cell Count 4.42 M/mm3 (4.30-5.90); White Blood Cell Count 7.43 K/mm3 (4.00-11.30)
[2020-11-05 15:31] LABS: Alanine Aminotransfer (ALT/SGP 21 U/L (12-78); Albumin, Blood 2.9 g/dL (3.4-5.0); Albumin/Globulin Ratio 0.7 (0.8-1.8); Alk Phos 95 U/L (50-136); Anion Gap 3 mmol/L (6-16); Aspartate Aminotrans (AST/SGOT 13 U/L (12-37); Bilirubin, Total 0.6 mg/dL (0.1-1.0); Blood Urea Nitrogen 10 mg/dL (8-24); Bun/Creatinine Ratio 17.6 (12.0-20.0); CO2, Blood 36 mmol/L (21-32); Calcium, Blood 8.4 mg/dL (8.5-10.1); Chloride, Blood 100 mmol/L (98-108); Creatinine, Blood 0.57 mg/dL (0.60-1.20); Globulin, Blood 4.1 g/dL (2.2-4.0); Glomerular Filtration Rate >60 (60-); Glucose, Blood 115 mg/dL (70-99); Potassium, Blood 3.3 mmol/L (3.5-5.5); Sodium, Blood 139 mmol/L (136-145)
== END 2020-11-05 17:20 | disposition home or self-care (01) ==
LOC: ATC 01:27
PROVIDERS: Internal Medicine Rheumatology
DX: L40.50 Arthropathic psoriasis, unspecified (principal); E66.01 Morbid (severe) obesity due to excess calories; J44.9 Chronic obstructive pulmonary disease, unspecified; I11.0 Hypertensive heart disease with heart failure; I50.32 Chronic diastolic (congestive) heart failure; Z88.0 Allergy status to penicillin; Z88.1 Allergy status to other antibiotic agents; Z88.8 Allergy status to other drugs, medicaments and biological substances
CPT/HCPCS: 80053; 85027; 85651; 96365; 96366; 96413; 96415; A9270; J7050; Q5103

== ENCOUNTER 2020-12-10 00:26 | Day surgery (SDC) | payer OTHER ==
[~2020-12-10] VITALS: Wt 186.1 kg
--- NOTE | 2020-12-10 14:21 | NUR ---
LABS DRAWN FROM IV START PER PROTOCOL
[2020-12-10 16:26] LABS: Hematocrit 42.9 % (37.0-53.0); Hemoglobin 13.9 g/dL (13.5-17.5); Mean Corpuscular HGB 30.3 pg (26.0-34.0); Mean Corpuscular HGB Conc 32.4 g/dL (31.5-36.5); Mean Corpuscular Volume 94 fL (80-100); Mean Platelet Volume 10.9 fL (9.1-12.4); Platelet Count 157 K/mm3 (150-400); RDW Coefficient Variation 12.7 % (11.7-14.2); RDW Standard Deviation 43.9 fL (35.1-46.3); Red Blood Cell Count 4.58 M/mm3 (4.30-5.90); White Blood Cell Count 5.74 K/mm3 (4.00-11.30)
--- NOTE | 2020-12-10 16:44 | NUR ---
PT FEELING SHORT OF BREATH. PT BEING ESCORTED TO ER FOR EVALUATION
[2020-12-10 17:20] LABS: Alanine Aminotransfer (ALT/SGP 25 U/L (12-78); Albumin, Blood 3.3 g/dL (3.4-5.0); Albumin/Globulin Ratio 0.8 (0.8-1.8); Alk Phos 100 U/L (50-136); Anion Gap 5 mmol/L (6-16); Aspartate Aminotrans (AST/SGOT 16 U/L (12-37); Bilirubin, Total 0.5 mg/dL (0.1-1.0); Blood Urea Nitrogen 13 mg/dL (8-24); Bun/Creatinine Ratio 21.6 (12.0-20.0); CO2, Blood 37 mmol/L (21-32); Calcium, Blood 8.8 mg/dL (8.5-10.1); Chloride, Blood 98 mmol/L (98-108); Globulin, Blood 4.2 g/dL (2.2-4.0); Glomerular Filtration Rate >60 (60-); Glucose, Blood 94 mg/dL (70-99); Potassium, Blood 3.6 mmol/L (3.5-5.5); Sodium, Blood 140 mmol/L (136-145); Total Protein, Blood 7.5 g/dL (6.4-8.2)
== END 2020-12-10 16:44 | disposition home or self-care (01) ==
LOC: ATC 00:26
PROVIDERS: Internal Medicine Rheumatology
DX: L40.50 Arthropathic psoriasis, unspecified (principal)
CPT/HCPCS: 80053; 85027; 85651; 96413; 96415; A9270; J7050; Q5103

== ENCOUNTER 2020-12-10 16:52 | Emergency (ER) | payer OTHER ==
[~2020-12-10] VITALS: Ht 170.2 cm; Wt 186.0 kg
[2020-12-10 18:10] LABS: Hematocrit 41.7 % (37.0-53.0); Hemoglobin 13.6 g/dL (13.5-17.5); Mean Corpuscular HGB 30.4 pg (26.0-34.0); Mean Corpuscular HGB Conc 32.6 g/dL (31.5-36.5); Mean Corpuscular Volume 93 fL (80-100); Mean Platelet Volume 10.2 fL (9.1-12.4); Platelet Count 140 K/mm3 (150-400); RDW Coefficient Variation 12.7 % (11.7-14.2); RDW Standard Deviation 43.5 fL (35.1-46.3); Red Blood Cell Count 4.48 M/mm3 (4.30-5.90); White Blood Cell Count 10.43 K/mm3 (4.00-11.30)
[2020-12-10 18:29] LABS: Alanine Aminotransfer (ALT/SGP 24 U/L (12-78); Albumin, Blood 3.2 g/dL (3.4-5.0); Albumin/Globulin Ratio 0.8 (0.8-1.8); Alk Phos 98 U/L (50-136); Anion Gap 5 mmol/L (6-16); Aspartate Aminotrans (AST/SGOT 21 U/L (12-37); Bilirubin, Total 1.1 mg/dL (0.1-1.0); Blood Urea Nitrogen 13 mg/dL (8-24); Bun/Creatinine Ratio 26.2 (12.0-20.0); CO2, Blood 35 mmol/L (21-32); Calcium, Blood 8.6 mg/dL (8.5-10.1); Chloride, Blood 98 mmol/L (98-108); Globulin, Blood 3.9 g/dL (2.2-4.0); Glomerular Filtration Rate >60 (60-); Glucose, Blood 106 mg/dL (70-99); Potassium, Blood 3.8 mmol/L (3.5-5.5); Sodium, Blood 138 mmol/L (136-145); Total Protein, Blood 7.1 g/dL (6.4-8.2); Troponin I <0.015 ng/mL (0.000-0.040)
[2020-12-10 18:48] LABS: BAND PERCENT MAN 14 % (0-8); BASOPHILS PERCENT MAN 0 % (0-2); EOSINOPHILS PERCENT MAN 0 % (0-6); LYMPHOCYTES ABSOLUTE MAN 0.73 K/mm3 (0.84-5.20); LYMPHOCYTES PERCENT MAN 7 % (21-46); METAMYELOCYTE PERCENT MAN 2 % (0-0); MONOCYTES PERCENT MAN 1 % (4-13); NEUTROPHILS ABSOLUTE MAN 9.38 K/mm3 (1.96-9.15); SEG NEUTROPHILS PERCENT MAN 76 % (41-73); TOTAL CELLS COUNTED 100
== END 2020-12-10 20:26 | disposition left against medical advice (07) ==
LOC: ER 16:52
PROVIDERS: Emergency Medicine Emergency Medical Services
DX: R06.02 Shortness of breath (principal); Z53.21 Procedure and treatment not carried out due to patient leaving prior to being seen by health care provider
CPT/HCPCS: 71045; 80053; 83880; 84484; 85025; 93005; 93010; 99283-25

== ENCOUNTER 2021-01-07 00:14 | Day surgery (SDC) | payer OTHER ==
[2021-01-07 14:27] LABS: BASOPHILS ABSOLUTE AUTO 0.05 K/mm3 (0.00-0.23); BASOPHILS PERCENT AUTO 1 % (0-2); EOSINOPHILS PERCENT AUTO 5 % (0-6); Hematocrit 42.4 % (37.0-53.0); Hemoglobin 13.8 g/dL (13.5-17.5); IMMATURE GRAN ABSOLUTE AUTO 0.01 K/mm3 (0.00-0.10); IMMATURE GRAN PERCENT AUTO 0 % (0-1); LYMPHOCYTES ABSOLUTE AUTO 1.52 K/mm3 (0.84-5.20); LYMPHOCYTES PERCENT AUTO 25 % (21-46); MONOCYTES ABSOLUTE AUTO 0.49 K/mm3 (0.16-1.47); MONOCYTES PERCENT AUTO 8 % (4-13); Mean Corpuscular HGB 29.9 pg (26.0-34.0); Mean Corpuscular HGB Conc 32.5 g/dL (31.5-36.5); Mean Corpuscular Volume 92 fL (80-100); Mean Platelet Volume 10.2 fL (9.1-12.4); NEUTROPHILS ABSOLUTE AUTO 3.77 K/mm3 (1.96-9.15); NEUTROPHILS PERCENT AUTO 61 % (41-73); Platelet Count 169 K/mm3 (150-400); RDW Coefficient Variation 12.5 % (11.7-14.2); RDW Standard Deviation 42.1 fL (35.1-46.3); Red Blood Cell Count 4.61 M/mm3 (4.30-5.90); White Blood Cell Count 6.14 K/mm3 (4.00-11.30)
[2021-01-07 14:53] LABS: Alanine Aminotransfer (ALT/SGP 20 U/L (12-78); Albumin/Globulin Ratio 0.7 (0.8-1.8); Alk Phos 99 U/L (50-136); Anion Gap 1 mmol/L (6-16); Aspartate Aminotrans (AST/SGOT 16 U/L (12-37); Bilirubin, Total 0.7 mg/dL (0.1-1.0); Blood Urea Nitrogen 11 mg/dL (8-24); Bun/Creatinine Ratio 18.7 (12.0-20.0); CO2, Blood 37 mmol/L (21-32); Calcium, Blood 8.6 mg/dL (8.5-10.1); Chloride, Blood 99 mmol/L (98-108); Creatinine, Blood 0.59 mg/dL (0.60-1.20); Globulin, Blood 4.4 g/dL (2.2-4.0); Glomerular Filtration Rate >60 (60-); Glucose, Blood 82 mg/dL (70-99); Potassium, Blood 4.3 mmol/L (3.5-5.5); Sodium, Blood 137 mmol/L (136-145); Total Protein, Blood 7.4 g/dL (6.4-8.2)
--- NOTE | 2021-01-07 16:59 | NUR ---
PT BEGAN FEELING "STRANGE" AFTER 1 HOUR OF INFUSION, APPROX 130 CC OF THE 250 CC BAG HAD INFUSED. THE RATE WAS SLOWED TO 50 CC/HR, THEN STOPPED WHEN PT C/O OF SOB, HIP AND MUSCLE PAIN/SPASMS. BIOX WAS NOTED TO BE 92-95% ON 2L O2 VIA NC. PT MOVED FROM THE [facility] CHAIR TO HIS ELECTRIC WC W/ SBA AND WALKER. BP WAS OBTAINED MANUALLY AND WAS WNL. DR FLORINDA BOSCH WAS REACHED IN PLACE OF DR BROWN. TORADOL WAS ORDERED. PT STS HE IS IMPROVING BUT STILL UNCOMFORTABLE. PTS ARRIVED AND IS IN ROOM WITH PT. WILL GIVE TORADOL AND CONTINUE TO MONITOR. IF PT IMPROVES HE WILL BE D/C'D HOME.
== END 2021-01-07 17:30 | disposition home or self-care (01) ==
LOC: ATC 00:14
PROVIDERS: Internal Medicine Rheumatology
DX: L40.50 Arthropathic psoriasis, unspecified (principal)
CPT/HCPCS: 80053; 85025; 85651; A9270; J1885; J7050; Q5103

== ENCOUNTER 2021-03-17 01:17 | Day surgery (SDC) | payer OTHER ==
[~2021-03-17] VITALS: Wt 194.9 kg
[2021-03-17 16:13] LABS: BASOPHILS ABSOLUTE AUTO 0.04 K/mm3 (0.00-0.23); BASOPHILS PERCENT AUTO 1 % (0-2); EOSINOPHILS ABSOLUTE AUTO 0.22 K/mm3 (0.00-0.68); EOSINOPHILS PERCENT AUTO 3 % (0-6); Hematocrit 42.6 % (37.0-53.0); Hemoglobin 13.8 g/dL (13.5-17.5); IMMATURE GRAN ABSOLUTE AUTO 0.02 K/mm3 (0.00-0.10); IMMATURE GRAN PERCENT AUTO 0 % (0-1); LYMPHOCYTES ABSOLUTE AUTO 1.49 K/mm3 (0.84-5.20); LYMPHOCYTES PERCENT AUTO 21 % (21-46); MONOCYTES ABSOLUTE AUTO 0.54 K/mm3 (0.16-1.47); MONOCYTES PERCENT AUTO 8 % (4-13); Mean Corpuscular HGB Conc 32.4 g/dL (31.5-36.5); Mean Corpuscular Volume 93 fL (80-100); NEUTROPHILS ABSOLUTE AUTO 4.84 K/mm3 (1.96-9.15); NEUTROPHILS PERCENT AUTO 68 % (41-73); Platelet Count 194 K/mm3 (150-400); RDW Coefficient Variation 12.9 % (11.7-14.2); RDW Standard Deviation 43.8 fL (35.1-46.3); White Blood Cell Count 7.15 K/mm3 (4.00-11.30)
[2021-03-17 16:30] LABS: Alanine Aminotransfer (ALT/SGP 22 U/L (12-78); Albumin, Blood 2.9 g/dL (3.4-5.0); Albumin/Globulin Ratio 0.7 (0.8-1.8); Alk Phos 104 U/L (50-136); Anion Gap 3 mmol/L (6-16); Aspartate Aminotrans (AST/SGOT 21 U/L (12-37); Bilirubin, Total 0.5 mg/dL (0.1-1.0); Blood Urea Nitrogen 15 mg/dL (8-24); CO2, Blood 34 mmol/L (21-32); Calcium, Blood 8.6 mg/dL (8.5-10.1); Chloride, Blood 102 mmol/L (98-108); Creatinine, Blood 0.58 mg/dL (0.60-1.20); Globulin, Blood 4.1 g/dL (2.2-4.0); Glomerular Filtration Rate >60 (60-); Glucose, Blood 89 mg/dL (70-99); Potassium, Blood 4.2 mmol/L (3.5-5.5); Sodium, Blood 139 mmol/L (136-145)
== END 2021-03-17 17:37 | disposition home or self-care (01) ==
LOC: ATC 01:17
PROVIDERS: Internal Medicine Rheumatology
DX: L40.50 Arthropathic psoriasis, unspecified (principal); J44.9 Chronic obstructive pulmonary disease, unspecified; E66.01 Morbid (severe) obesity due to excess calories; Z68.44 Body mass index [BMI] 60.0-69.9, adult; I11.0 Hypertensive heart disease with heart failure; I50.32 Chronic diastolic (congestive) heart failure; Z88.0 Allergy status to penicillin; Z88.1 Allergy status to other antibiotic agents; Z88.8 Allergy status to other drugs, medicaments and biological substances
CPT/HCPCS: 80053; 85025; 85651; 96375; 96413; 96415; A9270; J2930; J7050; Q5103

== ENCOUNTER 2021-06-29 13:12 | Emergency (ER) | payer OTHER ==
[~2021-06-29] VITALS: Ht 170.2 cm; Wt 193.2 kg
[2021-06-29 14:35] LABS: Alanine Aminotransfer (ALT/SGP 20 U/L (12-78); Albumin, Blood 3.1 g/dL (3.4-5.0); Albumin/Globulin Ratio 0.7 (0.8-1.8); Alk Phos 99 U/L (50-136); Anion Gap 5 mmol/L (6-16); Aspartate Aminotrans (AST/SGOT 19 U/L (12-37); Bilirubin, Total 0.6 mg/dL (0.1-1.0); Blood Urea Nitrogen 11 mg/dL (8-24); Bun/Creatinine Ratio 24.2 (12.0-20.0); CO2, Blood 35 mmol/L (21-32); Calcium, Blood 8.6 mg/dL (8.5-10.1); Chloride, Blood 97 mmol/L (98-108); Creatinine, Blood 0.46 mg/dL (0.60-1.20); Globulin, Blood 4.4 g/dL (2.2-4.0); Glomerular Filtration Rate >60 (60-); Glucose, Blood 96 mg/dL (70-99); Sodium, Blood 137 mmol/L (136-145); Total Protein, Blood 7.5 g/dL (6.4-8.2)
[2021-06-29 14:52] LABS: BASOPHILS ABSOLUTE AUTO 0.04 K/mm3 (0.00-0.23); BASOPHILS PERCENT AUTO 1 % (0-2); EOSINOPHILS ABSOLUTE AUTO 0.26 K/mm3 (0.00-0.68); EOSINOPHILS PERCENT AUTO 5 % (0-6); Hemoglobin 13.1 g/dL (13.5-17.5); IMMATURE GRAN ABSOLUTE AUTO 0.01 K/mm3 (0.00-0.10); IMMATURE GRAN PERCENT AUTO 0 % (0-1); LYMPHOCYTES ABSOLUTE AUTO 1.02 K/mm3 (0.84-5.20); LYMPHOCYTES PERCENT AUTO 18 % (21-46); MONOCYTES ABSOLUTE AUTO 0.44 K/mm3 (0.16-1.47); MONOCYTES PERCENT AUTO 8 % (4-13); Mean Corpuscular HGB 29.4 pg (26.0-34.0); Mean Corpuscular HGB Conc 30.5 g/dL (31.5-36.5); Mean Corpuscular Volume 97 fL (80-100); Mean Platelet Volume 10.3 fL (9.1-12.4); NEUTROPHILS ABSOLUTE AUTO 3.89 K/mm3 (1.96-9.15); NEUTROPHILS PERCENT AUTO 69 % (41-73); Platelet Count 147 K/mm3 (150-400); RDW Coefficient Variation 13.1 % (11.7-14.2); RDW Standard Deviation 46.5 fL (35.1-46.3); Red Blood Cell Count 4.45 M/mm3 (4.30-5.90); White Blood Cell Count 5.66 K/mm3 (4.00-11.30)
[2021-06-29 16:15] LABS: Influenza A, PCR NEGATIVE (NEGATIVE); Influenza B, PCR NEGATIVE (NEGATIVE); Resp Syncytial Virus, PCR NEGATIVE (NEGATIVE); SARS-Cov-2 (COVID-19) PCR, MMC NEGATIVE (NEGATIVE)
[2021-06-29] MEDS ORDERED: FLUT1DIS8 INH (20:10)
[2021-06-29] MEDS ORDERED: Prednisone20 MG PO (20:10)
[2021-06-29] MEDS ORDERED: SILVER SULFADIA50 G1 TOP (20:10)
== END 2021-06-29 20:24 | disposition home or self-care (01) ==
LOC: ER 13:12
PROVIDERS: Student in an Organized Health Care Education/Training Program
DX: J44.9 Chronic obstructive pulmonary disease, unspecified (principal); I11.0 Hypertensive heart disease with heart failure; I50.9 Heart failure, unspecified; Z79.899 Other long term (current) drug therapy; Z88.0 Allergy status to penicillin
CPT/HCPCS: 0241U; 36415; 71046; 80053; 83880; 84484; 85025; 93005; 93010; 96372; 99285-25; J1885; J7512

== ENCOUNTER 2021-07-13 01:16 | Day surgery (SDC) | payer OTHER ==
[~2021-07-13 01:16] MED LIST changes: +FLUT1DIS8 INH; +SILVER SULFADIA50 G1 TOP
[2021-07-13 15:33] LABS: BASOPHILS ABSOLUTE AUTO 0.04 K/mm3 (0.00-0.23); BASOPHILS PERCENT AUTO 1 % (0-2); EOSINOPHILS PERCENT AUTO 3 % (0-6); Hematocrit 44.1 % (37.0-53.0); Hemoglobin 13.5 g/dL (13.5-17.5); IMMATURE GRAN ABSOLUTE AUTO 0.02 K/mm3 (0.00-0.10); IMMATURE GRAN PERCENT AUTO 0 % (0-1); LYMPHOCYTES ABSOLUTE AUTO 1.12 K/mm3 (0.84-5.20); LYMPHOCYTES PERCENT AUTO 15 % (21-46); MONOCYTES ABSOLUTE AUTO 0.55 K/mm3 (0.16-1.47); MONOCYTES PERCENT AUTO 7 % (4-13); Mean Corpuscular HGB 29.5 pg (26.0-34.0); Mean Corpuscular HGB Conc 30.6 g/dL (31.5-36.5); Mean Corpuscular Volume 96 fL (80-100); Mean Platelet Volume 10.1 fL (9.1-12.4); NEUTROPHILS ABSOLUTE AUTO 5.54 K/mm3 (1.96-9.15); NEUTROPHILS PERCENT AUTO 74 % (41-73); Platelet Count 167 K/mm3 (150-400); RDW Standard Deviation 46.7 fL (35.1-46.3); Red Blood Cell Count 4.58 M/mm3 (4.30-5.90); White Blood Cell Count 7.47 K/mm3 (4.00-11.30)
[2021-07-13 15:52] LABS: Alanine Aminotransfer (ALT/SGP 23 U/L (12-78); Albumin, Blood 3.2 g/dL (3.4-5.0); Albumin/Globulin Ratio 0.8 (0.8-1.8); Alk Phos 102 U/L (50-136); Anion Gap 3 mmol/L (6-16); Aspartate Aminotrans (AST/SGOT 16 U/L (12-37); Bilirubin, Total 0.7 mg/dL (0.1-1.0); Blood Urea Nitrogen 11 mg/dL (8-24); Bun/Creatinine Ratio 17.9 (12.0-20.0); CO2, Blood 42 mmol/L (21-32); Calcium, Blood 8.9 mg/dL (8.5-10.1); Chloride, Blood 93 mmol/L (98-108); Creatinine, Blood 0.62 mg/dL (0.60-1.20); Globulin, Blood 3.8 g/dL (2.2-4.0); Glomerular Filtration Rate >60 (60-); Glucose, Blood 99 mg/dL (70-99); Potassium, Blood 4.3 mmol/L (3.5-5.5); Sodium, Blood 138 mmol/L (136-145)
== END 2021-07-13 16:55 | disposition home or self-care (01) ==
LOC: ATC 01:16
PROVIDERS: Internal Medicine Rheumatology
DX: L40.50 Arthropathic psoriasis, unspecified (principal)
CPT/HCPCS: 36415; 80053; 85025; 85651; 96374; 96413; 96415; A9270; J2930; J7050; Q5103

== ENCOUNTER 2021-09-01 19:50 | Inpatient (IN) | payer OTHER ==
[~2021-09-01] VITALS: Ht 170.2 cm; Wt 191.1 kg
[2021-09-01 20:26] LABS: BASOPHILS ABSOLUTE AUTO 0.05 K/mm3 (0.00-0.23); BASOPHILS PERCENT AUTO 1 % (0-2); EOSINOPHILS ABSOLUTE AUTO 0.28 K/mm3 (0.00-0.68); EOSINOPHILS PERCENT AUTO 5 % (0-6); Hematocrit 43.2 % (37.0-53.0); Hemoglobin 13.4 g/dL (13.5-17.5); IMMATURE GRAN ABSOLUTE AUTO 0.02 K/mm3 (0.00-0.10); IMMATURE GRAN PERCENT AUTO 0 % (0-1); LYMPHOCYTES ABSOLUTE AUTO 1.28 K/mm3 (0.84-5.20); LYMPHOCYTES PERCENT AUTO 21 % (21-46); MONOCYTES ABSOLUTE AUTO 0.41 K/mm3 (0.16-1.47); MONOCYTES PERCENT AUTO 7 % (4-13); Mean Corpuscular HGB 29.3 pg (26.0-34.0); Mean Corpuscular Volume 95 fL (80-100); Mean Platelet Volume 10.2 fL (9.1-12.4); NEUTROPHILS ABSOLUTE AUTO 4.18 K/mm3 (1.96-9.15); NEUTROPHILS PERCENT AUTO 67 % (41-73); Platelet Count 141 K/mm3 (150-400); RDW Coefficient Variation 13.7 % (11.7-14.2); RDW Standard Deviation 47.3 fL (35.1-46.3); Red Blood Cell Count 4.57 M/mm3 (4.30-5.90); White Blood Cell Count 6.22 K/mm3 (4.00-11.30)
[2021-09-01 20:49] LABS: Albumin, Blood 3.3 g/dL (3.4-5.0); Albumin/Globulin Ratio 0.8 (0.8-1.8); Bilirubin, Total 0.6 mg/dL (0.1-1.0); Bun/Creatinine Ratio 20.4 (12.0-20.0); Calcium, Blood 8.8 mg/dL (8.5-10.1); Creatinine, Blood 0.49 mg/dL (0.60-1.20); Globulin, Blood 4.3 g/dL (2.2-4.0); Potassium, Blood 4.3 mmol/L (3.5-5.5); Total Protein, Blood 7.6 g/dL (6.4-8.2)
[2021-09-01 21:17] LABS: Influenza A, PCR NEGATIVE (NEGATIVE); Influenza B, PCR NEGATIVE (NEGATIVE); Resp Syncytial Virus, PCR NEGATIVE (NEGATIVE); SARS-Cov-2 (COVID-19) PCR, MMC NEGATIVE (NEGATIVE)
[2021-09-01] MEDS ORDERED: METO100 PO (22:58)
[2021-09-01] MEDS ORDERED: SPIRONOLACTONE25 MG PO (22:58)
[2021-09-01] MEDS ORDERED: AMLODIPINE BESY10 MG PO (22:59)
[2021-09-01 23:05] LABS: PCO2 Arterial 78.7 mmHg (35-45); pH Blood Arterial 7.34 (7.35-7.45)
[2021-09-01 23:06] LABS: PO2 Arterial 61.6 mmHg (80-100)
[2021-09-01] MEDS ORDERED: TAMSULOSIN HCL0.4 M1 PO (23:07)
[2021-09-01] MEDS ORDERED: OMEP20ER (23:07)
[2021-09-01] MEDS ORDERED: FINA5 PO (23:07)
[2021-09-02 04:59] LABS: BASOPHILS ABSOLUTE AUTO 0.01 K/mm3 (0.00-0.23); BASOPHILS PERCENT AUTO 0 % (0-2); EOSINOPHILS ABSOLUTE AUTO 0.01 K/mm3 (0.00-0.68); EOSINOPHILS PERCENT AUTO 0 % (0-6); Hematocrit 41.1 % (37.0-53.0); Hemoglobin 12.9 g/dL (13.5-17.5); IMMATURE GRAN ABSOLUTE AUTO 0.02 K/mm3 (0.00-0.10); IMMATURE GRAN PERCENT AUTO 0 % (0-1); LYMPHOCYTES ABSOLUTE AUTO 0.57 K/mm3 (0.84-5.20); LYMPHOCYTES PERCENT AUTO 9 % (21-46); MONOCYTES ABSOLUTE AUTO 0.05 K/mm3 (0.16-1.47); MONOCYTES PERCENT AUTO 1 % (4-13); Mean Corpuscular HGB 29.3 pg (26.0-34.0); Mean Corpuscular HGB Conc 31.4 g/dL (31.5-36.5); Mean Corpuscular Volume 93 fL (80-100); Mean Platelet Volume 10.1 fL (9.1-12.4); NEUTROPHILS ABSOLUTE AUTO 5.54 K/mm3 (1.96-9.15); NEUTROPHILS PERCENT AUTO 89 % (41-73); Platelet Count 125 K/mm3 (150-400); RDW Coefficient Variation 13.3 % (11.7-14.2); RDW Standard Deviation 45.4 fL (35.1-46.3); Red Blood Cell Count 4.41 M/mm3 (4.30-5.90)
[2021-09-02 05:20] LABS: Albumin, Blood 3.1 g/dL (3.4-5.0); Albumin/Globulin Ratio 0.7 (0.8-1.8); Bilirubin, Total 0.7 mg/dL (0.1-1.0); Bun/Creatinine Ratio 19.3 (12.0-20.0); Calcium, Blood 8.8 mg/dL (8.5-10.1); Creatinine, Blood 0.47 mg/dL (0.60-1.20); Globulin, Blood 4.2 g/dL (2.2-4.0); Total Protein, Blood 7.3 g/dL (6.4-8.2)
[2021-09-02 05:22] LABS: CPK Creatine Kinase 60 U/L (39-308)
--- NOTE | 2021-09-02 06:37 | NUR ---
SHIFT SUMMARY NO ACUTE EVENTS DURING SHIFT. PATIENT ARRIVED FROM ER ON 15LPM VIA OXYMIZER WITH SPO2 MID 90'S. USED BIPAP FOR SHORT PERIOD WHEN SLEEPING WITHOUT ISSUES. PATIENT IS PLEASANT AND COOPERATIVE WITH CARE. REMAINED NPO T/O SHIFT, BUT STARTED ON WATER THIS MORNING PENDING DOCTOR ROUNDING. 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 USES BEDPAN TO URINATE D/T PROFOUND EDEMA AND SIZE OF SCROTUM. NO OTHER CHANGES DURING SHIFT.
--- NOTE | 2021-09-02 09:12 | NUR ---
patietn alert and oriented, makes needs known, call light wiht in reach, am medications given, no swallow difficulties, bad cintron in place under scrotumn, changed multiple times, [address] ryan patient does not feel like he is emptying his bladder, bladder scan did not show anything. penis is inverted with red tendered swollen scrotumn, dr ryan ok a garza and to use a uroject if needed. echo in room now
--- NOTE | 2021-09-02 10:19 | NUR ---
Spiritual Care Attempted Responding to a Spiritual Care Pt. request. Pt. is sleeing hard and was not roused. Will attempt again later in the day.
--- NOTE | 2021-09-02 10:22 | NUR ---
ECHO DONE, NO RESULTS REPORTED, BROTHER IN VISITING
[2021-09-02 13:09] LABS: CPK Creatine Kinase 57 U/L (39-308)
--- NOTE | 2021-09-02 13:13 | NUR ---
PATIENT BECAME VERT ANXIOUS, CONSTANT MOVEMENETS, HYPERVENTILATING, PATIENT DEMANDED ANXIETY MEDS AND SAID TO THIS RN "YOU PUSHED THE CASTRO ON ME, I NEVER WANTED" REPORTED TO DR WATTS AND CHARGE NURSE MARVIN RAYA RN, PATIENT EDUCATED ALL MORNING OF URINATION DEVICES, BED SCHAFFER WAS USED UNDER HIS SCROTUMN AND THE URINE WOULD POOL IN THE BED SCHAFFER. PATIENT EDUCATED ON THE SKIN PROTECTION FROM A CASTRO CATHETER AND STATED "WELL IF IT WOULD BE BETTER I WANT TO HAVE A CASTRO" PATIENT WAS STILL EDUCATED ON OTHER OPTIONS FROM A PERIWIK" [address] DRAIING TO GRAVITY LIGHT MCKENNA URINE, ZINC OINTMENT TO SKIN BREAKDOWN ON SCROTUMN AND LEGS
[2021-09-02 13:34] LABS: Source, Urine Foley catheter
[2021-09-02 13:49] LABS: Appearance, Urine Hazy (Clear); Bilirubin, Urine Neg (Neg); Blood, Urine 1+ (Neg); Color, Urine Yellow (P-Yellow); Glucose Qualitative, Urine Neg (Neg); Ketones, Urine Neg (Neg); Leukocyte Esterase, Urine Neg (Neg); Nitrite, Urine Neg (Neg); Protein, Urine Neg (Neg); Specific Gravity, Urine 1.015 (1.003-1.022); Urobilinogen, Urine NORM (Normal)
--- NOTE | 2021-09-02 13:53 | NUR ---
OT CAME AND WORKED WITH PATIENT, ALIZA PATIENT'S AT BEDSIDE, GUM WORKER IN WITH PATIENT NOW
[2021-09-02 14:07] LABS: Bacteria Many /hpf; Squamous Epithelial Cells Rare /hpf (Few)
--- NOTE | 2021-09-02 14:08 | NUR ---
Pt. is awake in bed and is distressed because of initial discomfort from his cathater. Spouse is present. Pt. immediately asked this rough and truing machine operator to pray for him. pastorally prayed on his behalf. Aftwerward established rapport. Pt. and spouse display evidence of encouagement. This rough and truing machine operator communicated availability to this patient for the rest of the afternoon. Pt. verbalized gratitude for the spiritual care visit.
--- NOTE | 2021-09-02 18:09 | NUR ---
PATIENT BECAME UNCONSOLABLE WITH URETHRA PAIN, REFUSING TO HAVE THE CASTRO STAY FOR SKIN CONCERNS, DR WATTS NOTIFIED, PATIENT EDUCATED THE NEED FOR THE CASTRO AND THAT HE HAS THE RIGHT TO HAVE IT REMOVED, AT BEDSIDE, CHARGE NURSE NOTIFIED AND IN THE ROOM, TALKED WITH PATIENT AND PATIENTS . PATIENT STATES "SHE JUST SHOVED THE CASTRO CATHETER IN DID EVEN EDUCATE ME", CHARGE NURSE MARVIN RAYA TO FOLLOW UP WITH DR WATTS
--- NOTE | 2021-09-02 18:14 | NUR ---
ALERT AND ORIENTED, CONFUSED EASILY, MULTIPLE SKIN AREAS OPEN AND RED, ZINC AND FUNAGL POWDER TO AREAS, LS DIMINISHED SATS 88-93% ON 10L OXYMIZER, TELEMETRY NSR, PVCS, DENIES CHEST PAIN. MEDICATED WITH DIURETICS THIS AM, PATIENT PROFUSELY VOIDED, WAS USING THE BEDPAN WITH A CHUCKS UNDER HIS SCROTUMN, PATIENT COMPLAINED OF PAIN, MULITPL USES OF BEDPAN. PATIENT EDUCATED EXTENSIVE EDUCATION ON URINE COLLECT CHOICES, PATIENT AGREED TO PLACE CASTRO, PATIENT LATER SAID "SHE PUSHED ME TO HAVE IT PLACED" CHARGE NURSE AND DR WATTS AWARE. HELPFUL AT BEDSIDE IS A AIRPORT OPERATIONS SPECIALIST, MEDICATED FOR CHRONIC HIP PAIN, MEDICATED FOR PANIC ATTACKS WITH HYDROXINE. ECHO DONE TODAY, WILL RELAY TO PM RN, LIZZY
--- NOTE | 2021-09-02 20:00 | NUR ---
ASSUMED CARE OF PT AT 1915. REPORT RECEIVED. PT PRESENTS IN BED. HIS HAS GONE HOME FOR THE NIGHT. PT MODERATELY ANXIOUS AT THIS TIME. DOES AGREE SOME OF HIS ANXIOUSNESS IS FROM HIS NOT BEING PRESENT. ALLOWED PT TO EXPRESS HIS FEELINGS. AGREES THAT THE CATHETER IS BENEFICIAL FOR DIURETIC THERAPY AND FOR HIS SKIN INTEGRITY. DISCUSSED GOAL OF GETTING THE ESCORIATIONS IN DANIELLE AREA, FOLDS, AND GROIN AREA TO BEGIN TO HEAL WILL BENEFIT HIM GREATLY WHEN HE IS DISCHARGE HOME. TEACHING DONE ON USING PILLOW CASES OR COTTON [employer] IN AREAS FOLDS, AND AREAS THAT ARE PRONE TO SKIN BREAKDOWN WILL HELP WITH HEALING AND PREVENTION OF FURTHER BREAKDOWN. PT STATES HE DOES USUALLY USE HIS SMITA-SHIRT, AND BOXER SHORTS IN THIS MANNER. PT NOTED TO DESATURATE TO 88-89 PERCENT WITH 10 L/M PER OXYMIZER TO NARES. INCREASED TO 11 LITERS/MINUTE. INSTRUCTED PT TO TAKE PERIODIC DEEP BREATHS TO HELP WITH HIS SATURATIONS. DID DISCUSS FUNCTIONALITY OF CPAP AND HOW IT HELPS TO KEEP AIRWAY PRESSURE TO MAINTAIN OPEN AIRWAYS. PT VERBALIZES UNDERSTANDING. WILL REVIEW CHART AND PLAN OF CARE FOR THIS PT.
--- NOTE | 2021-09-02 22:52 | NUR ---
PT CALLS TO SAY THAT HE IS FEELING CLAUSTROPHIC IN BED. ALSO STATES THAT HE IS VERY ANXIOUS. DID MEDICATE PT WITH ATARAX WITH TEACHING OF HOW MEDICATION WORKS. PT STATES THAT HE IS FEELING MUCH CALMER, AND IS ABLE TO REST. WILL CONTINUE TO MONITOR PT.
--- NOTE | 2021-09-03 01:40 | NUR ---
PT HAS REMAINED ON OXYMIZER THIS NIGHT. NO COMPLAINTS OF DYSPNEA. DOES HAVE COMPLAINT OF SOME DISCOMFORT FROM CASTRO CATHETER. PT HAS RECEIVED FIRST DOSE OF PYRIDIUM. HAS PUT OUT Q.S. URINE. WILL CONTINUE TO MONITOR PT.
--- NOTE | 2021-09-03 01:58 | NUR ---
PT CALLS THIS RN INTO ROOM AND STATES HE IS NOT ABLE TO HANDLE HAVING THE CATHETER IN PLACE. REFUSED TO KEEP CATHETER. REMOVED CATHETER.
[2021-09-03 03:53] LABS: Albumin, Blood 2.8 g/dL (3.4-5.0); Anion Gap 3 mmol/L (6-16); Blood Urea Nitrogen 13 mg/dL (8-24); Bun/Creatinine Ratio 23.9 (12.0-20.0); CO2, Blood 43 mmol/L (21-32); Calcium, Blood 8.7 mg/dL (8.5-10.1); Chloride, Blood 92 mmol/L (98-108); Creatinine, Blood 0.55 mg/dL (0.60-1.20); Glomerular Filtration Rate 116 (60-); Glucose, Blood 105 mg/dL (70-99); Phosphorus, Blood 3.7 mg/dL (2.5-4.9); Potassium, Blood 3.9 mmol/L (3.5-5.5); Sodium, Blood 138 mmol/L (136-145)
--- NOTE | 2021-09-03 06:45 | NUR ---
ATTEMPTED TO USE COLLECTION DEVICE FOR URINARY OUTPUT. THIS WAS ONLY SUCCESSFUL FOR APPROX 2 HOURS AND SUBSEQUENTLY LEAKED. FULL BEDBATH AND BED LINEN CHANGE DONE. PT MEDICATED WITH 10MG OXYCODONE FOR HIP AND JOINT PAIN. PT'S ANXIOUS AFFECT DECREASED SOME AFTER THE CATHETER WAS REMOVED. WILL CONTINUE TO MONITOR PT, AND WILL REPORT OFF TO ONCOMING RN.
--- NOTE | 2021-09-03 07:00 | NUR ---
ASSUME CARE: I have assumed care of this patient.
--- NOTE | 2021-09-03 08:30 | NUR ---
PHONE CALL: Dr Wagner called for pts home medication of flexeryl. This dose was verified with pt's over the phone; 10-15mg BID. Telephone order provided.
--- NOTE | 2021-09-03 14:12 | NUR ---
PROVIDER PHONE CALL: Dr Garcia called by this RN; telephone order for in house transfer to medical floor.
--- NOTE | 2021-09-03 14:52 | NUR ---
UPDATE: Pt complaining of nasal congestion. Dr Wagner called and notified; telephone order for denise.
--- NOTE | 2021-09-03 18:43 | NUR ---
SHIFT SUMMARY: NEURO: Pt alert and oriented x 4. He does report chronic pain on his hips that has been exacerbated by hospital turns. He notes that he normally sleeps in a chair and is able to stand and ambulate approximately four steps to his commode at home. Pt received two doses of his PRN oxycodone 10mg and his home flexeryl dose which significantly helped his pain. Cardiac: NSR on monitor Respiratory: Pt on 12 liter oxymizer; transition to BIPAP 14/12 50% fio2 while sleeping GI/: Pt tolerating meals well. has been bringing in snacks for pt. He uses the bed cintron to void. Mepilex was placed on underside of panus to help prevent skin breakdown. Psych/Social: Pt voices anxiety. He was given one dose of hydroxazine this morning. has been at bedside and very supportive throughout the day.
--- NOTE | 2021-09-03 20:00 | NUR ---
ASSUMED CARE OF PT AT 1915. REPORT RECEIVED. PT'S HAS JUST LEFT FOR THE NIGHT. DID INFORM HER THAT PT WAS TO BE TRANSFERRED TO PCU 1 WHEN ROOM IS AVAILABLE. DIRECTIONS TO PCU GIVEN. PT PRESENTS IN BED. ALERT AND ORIENTED. SOMEWHAT DROWSY. PT ON OXYMIZER AT 11 LITER/MIN. MAINTAINS SATURATION 89-92 PERCENT. PT DOES STATE THAT HIS HIP IS TENDER. PT MADE AWARE WHEN HE IS AVAILABLE FOR MORE OXYCODONE. PT ACKNOWLEDGES. PT IN NO DISTRESS AT THIS TIME. WILL REVIEW CHART AND PLAN OF CARE FOR THIS PT.
--- NOTE | 2021-09-03 21:00 | NUR ---
PT TRANSFERRED TO PCU 1 VIA BARIATRIC BED. REPORT WAS GIVEN TO AMELIA BURROWS. PT OUT OF ICU AT 2039. ALL BELONGINGS AND BIPAP TRANSFERRED WELL. WILL BE AVAILABLE FOR FURTHER QUESTION IF NEEDED.
--- NOTE | 2021-09-04 00:52 | NUR ---
THIS NURSE WAS IN PT ROOM SEVERAL TIMES. PT REQUESTED PAIN MEDICATION BUT WHEN MEDS BROUGHT TO PT HE THEN REFUSED AND ASKED FOR "A LITTLE WHILE, TO WAKE," "MORE TIME," AND "MAYBE LATER." ANOTHER NURSE WITNESSED AND MEDS WERE WASTED. PT THEN GO VERY AGITATED. THIS NURSE, CHARGE, AND OTHER STAFF ATTEMPTED TO DESCALATE. PT YELLING AT STAFF WANTING TO LEAVE ATTEMPTING TO GET OUT OF BED. ADVISED HE WAS A HIGH FALL RISK PT STATED "HE WOULD SIGN PAPERS, IF HE FELL." PT CALLED AND PLACED HER ON SPEAKER PHONE. PT WAS VERY WORKED UP WITH SATS IN HIGH 80'S TO 90 ON OXYMIZER REFUSING BIPAP. YELLING "I CAN'T BREATH." NURSES WERE ABLE TO GET PT INTO RECLINER TO MAKE MORE COMFORTABLE. PT NOW IS SLEEPING IN RECLINER WITH SATS OF 97% FIO2 OF 100% ON BIPAP. CALL LIGHT IS WITHIN REACH. WILL CONTINUE TO MONITOR.
--- NOTE | 2021-09-04 02:45 | NUR ---
CALLED DR MAGANA REGARDING PT SAYING HE WAS IN PAIN AND PUTTING HAND IN BACK SIDE. PT HAD ONLY PO MEDS FOR PAIN. OBTAINED FENT 25-50 Q4 IV PRN.
[2021-09-04 03:03] LABS: PO2 Arterial 112 mmHg (80-100)
[2021-09-04 03:05] LABS: PCO2 Arterial 70.6 mmHg (35-45)
--- NOTE | 2021-09-04 03:32 | NUR ---
MENTATION CHANGE CALLED DR. MAGANA REGARDING PT BEING OBTUNDED, NYSTAGMUS NOTED, AND PT NOT REPONSIVE TO PAINFUL STIMULI. VERY WEAK GAG. ORDERS FOR ROMAZICON 0.4MG NOW. PT ABLE TO OPEN EYES SPONTANEOUSLY AND ANSWER QUESTIONS APPROPRIATELY. DR. MAGANA UPDATED AND IT WAS DISCUSSED TO KEEP PT PCU STATUS ABG APPEARS BETTER THAN ORIGINAL AND PT IS AT HIS BASELINE. CONTINUE ASSESS FOR RESPIRATORY DECLINE AND PT'S INABILITY TO PROTECT AIRWAY; KEEP PT ON BIPAP HE CAN TOLERATE. ONE TIME ORDER FOR ZYPREXA 10MG IM IF PT BECOMES AGITATED AND RESTLESS AGAIN. END TIDAL CO2 NASAL CANNULA OBTAINED FOR WHEN PT REQUESTS FOR BREAKS OFF BIPAP.
[2021-09-04 04:32] LABS: Anion Gap 5 mmol/L (6-16); Blood Urea Nitrogen 21 mg/dL (8-24); Bun/Creatinine Ratio 36.5 (12.0-20.0); CO2, Blood 41 mmol/L (21-32); Calcium, Blood 8.7 mg/dL (8.5-10.1); Chloride, Blood 91 mmol/L (98-108); Creatinine, Blood 0.58 mg/dL (0.60-1.20); Glomerular Filtration Rate 114 (60-); Glucose, Blood 133 mg/dL (70-99); Phosphorus, Blood 2.9 mg/dL (2.5-4.9); Sodium, Blood 137 mmol/L (136-145)
--- NOTE | 2021-09-04 06:07 | NUR ---
SHIFT SUMMARY PT HAD AN EVENTFUL NIGHT. WAS VERY AGITATED AND ANXIOUS AND WAS YELLING AT STAFF BECAUSE HE WANTED TO GET UP. AT TIMES HE WAS CONFUSED AND REQUESTING PAIN MEDICATION THEN REFUSING IT. STAFF FOUND A RECLINER AND WAS ABLE TO GET HIM INTO CHAIR. HE THEN BECAME FIDGETY AND TACH AND THEN BECAME OBTUNDED. DR MAGANA WAS CALLED REGARDING CHANGES. PT CURRENTLY HAS A PURE WICK DUE TO FREQUENT AND LOW AMOUNT OF URINE. FREQUENTLY CHECKING AREA AND CHANGING PADS. CALL LIGHT IS WITHIN REACH.
--- NOTE | 2021-09-04 08:23 | NUR ---
AM NOTE PATIENT RESTING IN RECLINER THIS AM. CURRENTLY ON BIPAP FIO2 70%, 20/02, RR 20-25, SPO2>90% PATIENT IS ASLEEP, RESPONDING TO VERBAL AND PRESSURE STIMULI. UNABLE TO FULLY ASSESS PATIENT AT THIS TIME DUE TO HIS LEVEL OF DROWSINESS. TELE NSR 80S. VSS. PUREWICK CATHETER PRESENT DRAINING/SUCTIONING CLEAR MCKENNA FLUID.
--- NOTE | 2021-09-04 09:32 | NUR ---
Pt has been intermittently awake this am, on recent assessment pt not opening eyes, notified Dr Payton, new orders notified.
[2021-09-04 09:55] LABS: PCO2 Arterial 71 mmHg (35-45); PO2 Arterial 113 mmHg (80-100)
--- NOTE | 2021-09-04 14:24 | NUR ---
SPOUSE AT BEDSIDE THIS PM. SHE REPORTED THAT THE LAST TIME PATIENT WAS OBTUNDED CURRENT, HE HAD HIGH AMMONIA LEVELS IN HIS BLOOD. SPOUSE REPORTED THAT PATIENT WAS TREATED WITH LACTULOSE AT THAT TIME. DISCUSSED THIS FINDING WITH NICOLAS ESPARZA RN. CALLED DR BOWERS WHO GAVE A VERBAL ORDER TO CHECK PATIENT'S AMMONIA SERUM LEVEL. NICOLAS ESPARZA RN PLACED THE ORDER IN. LAB VALUE PENDING AT THIS TIME.
--- NOTE | 2021-09-04 17:45 | NUR ---
SHIFT SUMMARY PATIENT REMAINED COOPERATIVE W CARE, PLEASANT. PATIENT HAS BEEN SLEEPING OFF/ON T/O SHIFT. PATIENT WAS GIVEN A DOSE OF FLUMANEZIL AT THE BEGINNING OF THE SHIFT. PATIENT IS AROUSABLE TO VERBAL STIMULI AND IS FOLLOWING DIRECTIONS WHEN AWAKE. DENIES CP/PRESSURE, N/V, NUMBNESS/TINGLING. PATIENT DOES REPORT B/L HIP PAIN, CHRONIC IN NATURE, MEDICATING PER EMAR. SPO2>90% ON BIPAP FIO2 40, 17/13. RR 14. TELE NSR 60S. VSS STABLE OTHERWISE. PATIENT TOLERATED HIS BED BATH WELL THIS AM. PUREWICK WAS LEAKING, SWITCHED IT TO PERINEAL PADS TO USE BETWEEN BED PANS. SPOUSE AT BEDSIDE THIS PM ASSISTING WITH TOILETING WELL. WILL CONTINUE TO MONITOR UNTIL REPORT GIVEN TO THE ONCOMING SHIFT.
--- NOTE | 2021-09-04 18:29 | NUR ---
I have reviewed the [facility] documentation and am in agreement. Will continue to monitor.
[2021-09-05 04:07] LABS: Hematocrit 40.6 % (37.0-53.0); Hemoglobin 12.4 g/dL (13.5-17.5); Mean Corpuscular HGB 28.9 pg (26.0-34.0); Mean Corpuscular HGB Conc 30.5 g/dL (31.5-36.5); Mean Corpuscular Volume 95 fL (80-100); Mean Platelet Volume 10.5 fL (9.1-12.4); Platelet Count 111 K/mm3 (150-400); RDW Coefficient Variation 13.4 % (11.7-14.2); RDW Standard Deviation 47.5 fL (35.1-46.3); Red Blood Cell Count 4.29 M/mm3 (4.30-5.90); White Blood Cell Count 10.13 K/mm3 (4.00-11.30)
[2021-09-05 04:57] LABS: Albumin, Blood 2.7 g/dL (3.4-5.0); Albumin/Globulin Ratio 0.7 (0.8-1.8); Bun/Creatinine Ratio 37.2 (12.0-20.0); Calcium, Blood 8.6 mg/dL (8.5-10.1); Creatinine, Blood 0.78 mg/dL (0.60-1.20); Globulin, Blood 3.9 g/dL (2.2-4.0); Magnesium, Blood 1.8 mg/dL (1.6-2.4); Potassium, Blood 3.5 mmol/L (3.5-5.5); Thyroid Stimulating Hormone 1.8 uIU/mL (0.360-4.800); Total Protein, Blood 6.6 g/dL (6.4-8.2)
--- NOTE | 2021-09-05 05:29 | NUR ---
SHIFT SUMMARY PT ALERT AND ORIENTED, INTERACTIVE AND PLEASANT TO CONVERSE WITH. PT EXPERIENCES PERIODS OF CRYING DUE TO EMOTIONS OF BEING IN HOSPITAL AND AWAY FROM FAMILY. STUDENT NURSE LISTENS, USES THERAPEUTIC COMMUNICATION AND OFFERS CONSOLATION. VSS; SR WITH HR IN 70 - 80'S. RESPIRATIONS 24. O2 SATS 88 - 92 ON 6 L NC. BIPAP AT BEDSIDE, PT HAS USED IT ON AND OFF THROUGHOUT SHIFT. PT TOLERATES BIPAP AND NC WELL. PT ETC02 18 - 20'S. PT DENIES DYSPNEA, HOWEVER UPON EXERTION EXPERIENCES SOB. PT USING BEDPAN FOR URINATION. TOTAL OUPUT FOR SHIFT 3125 ML. LASIX GTT INFUSING PER EMAR. PT HAS NOT PASSED BM; PT STATED HE "FELT HE NEEDED TO" AND WANTED TO TRY AT [facility] [place] TRANSFER W/LIFT WAS ATTEMPTED, HOWEVER PT DID NOT TOLERATE WELL. BEDPAN USED, PT NO BM PASSED. PT REPOSITIONED FREQUENTLY. PT COMPLAINS OF PAIN IN HIPS; MEDICATED PER EMAR. UPON BEGINNING OF SHIFT, CURRENT IV WAS REMOVED AND NEW IV PLACED IN R. FA. PATENT, FLUSHES WELL, LASIX CURRENTLY RUNNING. PT DENIES CHEST PAIN OR CHEST PRESSURE. CALL LIGHT WITHIN REACH AND BED IN LOWEST POSITION.
--- NOTE | 2021-09-05 09:46 | NUR ---
AM NOTE PATIENT IS A&OX4. TELE NSR 90S, SPO2>90% 6L O2 NC. VSS. PATIENT DENIES CP/PRESSURE, SOB, N/V. PATIENT DOES REPORT NUMBNESS/TINGLING TO FETT B/L OFF/ON DEPENDANT ON HIS BODY POSITION. PATIENT IS MORE ALERT TODAY THAN YESTERSAY AND IS MORE MOBILE. PATIENT WAS ASSISTED TO A BEDSIDE COMMODE THIS AM AND HE SUCCESSFULLY HAD A XL BM. PATIENT WAS THEN ASSISTED TO A RECLINER. PATIENT IS UTILIZING A WALKER WHEN STANDING AT THIS TIME. PATIENT IS UTILIZING A BED SCHAFFER TO URINATE. LASIX DRIP RUNNING PER EMAR. PATIENT ALSO C/O OF CHRONIC HIP PAIN B/L, MEDICATING HIM PER EMAR.
--- NOTE | 2021-09-05 18:43 | NUR ---
DISCHARGE SUMMARY PATIENT REMAINED A&OX4. TELE NSR 70-80S. SPO2>90% 6L HFNC W HUMIDIFICATION. VSS. DENIES CP/PRESSURE, SOB, N/V, NUMBNESS/TINGLING. PATIENT HAD A SESSION OF PT TODAY, HE IS MOBILIZING BETTER TODAY. PATIENT IS C/O OF CHRONIC HIP PAIN B/L, MEDICATING HIM PER EMAR. HE IS UTILIZING BED SCHAFFER NEEDED. PATIENT REMAINS ON LASIX DRIP. NO ACUTE CHANGES TODAY. WILL CONTINUE TO MONITOR UNTIL REPORT GIVEN TO ONCOMING SHIFT.
--- NOTE | 2021-09-05 19:30 | NUR ---
I have reviewed the nursing students documenation and am in agreement. Pt up with walker, gaitbelt and 2 person assist to chair x2, lift needed to get pt back to bed. Pt on 6l o2 via nc for majority of shift, wore bipap for short period of times this afternoon. Pt edcuated on fluid restrictions, i&o updated. VSS. no other acute changes noted.
--- NOTE | 2021-09-05 19:40 | NUR ---
ASSUMPTION OF CARE KEELY GARCIA AND NICOLAS CISNEROS ASSUMED CARE OF PATIENT AT 1900. REPORT TAKEN FROM NICOLAS CISNEROS. VSS. RT AT BEDSIDE WITH BREATHING TREATMENT. BED IN LOWEST POSITION WITH CALL LIGHT WITHIN REACH. CONTACT PRECAUTIONS MAINTAINED, GOWNS AND GLOVES OUTSIDE OF ROOM.
[2021-09-06 03:47] LABS: Hematocrit 40.8 % (37.0-53.0); Hemoglobin 12.6 g/dL (13.5-17.5); Mean Corpuscular HGB 29.2 pg (26.0-34.0); Mean Corpuscular HGB Conc 30.9 g/dL (31.5-36.5); Mean Corpuscular Volume 94 fL (80-100); Mean Platelet Volume 10.5 fL (9.1-12.4); Platelet Count 97 K/mm3 (150-400); RDW Coefficient Variation 13.3 % (11.7-14.2); RDW Standard Deviation 47.2 fL (35.1-46.3); Red Blood Cell Count 4.32 M/mm3 (4.30-5.90)
[2021-09-06 04:03] LABS: Albumin, Blood 2.8 g/dL (3.4-5.0); Albumin/Globulin Ratio 0.7 (0.8-1.8); Calcium, Blood 8.7 mg/dL (8.5-10.1); Creatinine, Blood 0.82 mg/dL (0.60-1.20); Globulin, Blood 4.2 g/dL (2.2-4.0); Magnesium, Blood 2.2 mg/dL (1.6-2.4); Potassium, Blood 3.4 mmol/L (3.5-5.5)
--- NOTE | 2021-09-06 05:10 | NUR ---
PATIENT UPDATE CALL PLACED TO MD MAGANA DUE TO PATIENTS POTASSIUM OF 3.4 AND BEING ON A LASIX GTT. MD MAGANA WITH ORDERS FOR A OT KCL IV, SEE EMAR.
--- NOTE | 2021-09-06 06:25 | NUR ---
SHIFT SUMMARY PATIENT IS A&O X4. NO ACUTE EVENTS DURING THE SHIFT. PATIENT SWITCHES FROM 6L O2 NC AND BIPAP 18/ 40%. 02 SATS CONTINUE TO BE >92%. DYSPNEA WITH EXERTION. NSR ON TELE WITH HR 70S. VSS. PATIENT HAS BEEN PARTICIPATING IN CARE MORE AND WAS ABLE TO AMBULATE TO THE BED WITH MINIMAL HELP FROM STAFF USING THE FWW. BEDPAN USED FOR VOIDING. LASIX GTT RUNNING PER EMAR. MEDICATING FOR BILATERAL HIP PAIN PER EMAR. FLUID RESTRICTION MAINTAINED WITH APPROXIMATELY 400MLS DURING VICE PRESIDENT OF TALENT MANAGEMENT. DANIELLE AREA CLEANSED THROUGHOUT THE SHIFT AND BARRIER CREAM APPLIED. ALL WOUND DRESSINGS ARE C/D/I. PATIENT CONTINUES TO BE ON CONTACT PRECAUTIONS FOR MRSA IN HIS WOUNDS; ISOLATION CART OUTSIDE OF ROOM. RN AT BEDSIDE FOR MEDICATIONS, PATIENT CALM AND COOPERATIVE WITH CARE. BED IN LOWEST POSITION AND CALL LIGHT WITHIN REACH.
--- NOTE | 2021-09-06 07:15 | NUR ---
ASSUMED CARE: PT IS RESTING IN BED AT TIME OF BEDSIDE REPORT. SATTING >95% ON 6LPM NC, SINUS RHYTHYM IN 80'S. CONTACT PRECAUTIONS IN PLACE, CALL LIGHT WITHIN REACH. NO ACUTE NEEDS/DISTRESS AT THIS TIME.
--- NOTE | 2021-09-06 10:00 | NUR ---
REVIEWED MILK PICKUP DRIVER'S HEAD TO TOE ASSESSMENT AND AGREE
--- NOTE | 2021-09-06 13:00 | NUR ---
PATIENT ARRIVED FROM PCU AT 1245 BY WHEELCHAIR. HIS WAS PRESENT AT THE TIME AND IS STILL AT THE BEDSIDE. HE APPEARS ANXIOUS BUT IS PLEASANT AND ABLE TO LET HIS NEEDS BE KNOWN.
--- NOTE | 2021-09-06 13:00 | NUR ---
PT TRANSFERRED ON 6LPM NC IN RECLINER BY CYNTHIA AND AMELIA Garcia. PT HAD AT BEDSIDE AT TIME OF TRANSFER.
--- NOTE | 2021-09-06 15:40 | NUR ---
PATIENTS GAVE HIM A SHOWER. LINENS PROVIDED. REWRAPPED BOTH OF THE IV'S IN HIS RIGHT ARM. PROVIDING AFTER SHOWER CARE.
--- NOTE | 2021-09-06 16:45 | NUR ---
SHIFT SUMMARY: PATIENT ALERT AND ORIENTED X4. HE IS A VERY PLEASANT MAN WHO IS ABLE TO MAKE HIS NEEDS KNOWN. HE IS ON CONTACT ISOLATION FOR MRSA IN HIS WOUND ON THE RIGHT LEG. HE IS CURRENTLY ON 6 LITERS AND WEARS A BIPAP AT NIGHT. HE HAS TWO IV'S, ONE IN HIS RIGHT FOREARM AND THE OTHER IN THE RIGHT AC. HIS HAS BEEN WITH HIM IN THE ROOM THROUGHOUT THE SHIFT AND HAS HELPED WITH HIS CARE. SHE WAS ABLE TO GIVE HIM A SHOWER AND PROVIDE HIM WITH THE AFTERCARE HE NEEDED. A DRESSING WAS APPLIED TO HIS SCROTUM FOR A RASH. HE HAD A DOSE OF OXYCODONE AND FLEXERIL FOR PAIN AND MUSCLE SPASMS IN HIS HIPS AND BACK. SITTING COMFORTABLY IN THE RECLINER. CALL LIGHT IN REACH.
--- NOTE | 2021-09-06 17:00 | NUR ---
REVIEWED NOTES CHARTED BY LOUISA, STUDENT NURSE AND AGREE WITH HER DOCUMENTATION ON THIS PATIENT.
[2021-09-07 04:58] LABS: Hematocrit 42.8 % (37.0-53.0); Hemoglobin 13.3 g/dL (13.5-17.5); Mean Corpuscular HGB Conc 31.1 g/dL (31.5-36.5); Mean Corpuscular Volume 93 fL (80-100); Mean Platelet Volume 10.5 fL (9.1-12.4); Platelet Count 127 K/mm3 (150-400); RDW Coefficient Variation 13.4 % (11.7-14.2); RDW Standard Deviation 45.6 fL (35.1-46.3); Red Blood Cell Count 4.59 M/mm3 (4.30-5.90); White Blood Cell Count 6.04 K/mm3 (4.00-11.30)
[2021-09-07 05:24] LABS: Calcium, Blood 9.5 mg/dL (8.5-10.1); Potassium, Blood 3.7 mmol/L (3.5-5.5)
--- NOTE | 2021-09-07 07:26 | NUR ---
PT A/OX4, PLEASANT AND MELISSA TO MAKE NEEDS KNOWN. PT OVERNIGHT VOIDED FREQUENTLY REQUIRED BED SCHAFEFR OFTEN AND WOULD OFTEN ASKED TO JUST BE LEFT ON IT. EXPLAINED TO PT THAT DOING SO WOULD PUT HIM AT HIGHER RISK FOR SKIN BREAKDOWN DUE TO SCROTUM POSITIONING WITH URINE. PT VERY ACCEPTABLE HOWEVER SOON PT WAS DONE USING BED SCHAFFER HE WOULD ALMOST IMMEDITELY NEED IT AGAIN. BEST ATTEMPS AT HELPING PREVENT FURTHER SKIN BREAKDOWN. PT ALSO ON HOME BIPAP WITH OXYGEN SATURATIONS 86-88% ON 6L. PER RT PT CAN BE TITRATED UP NEEDED AND TO NOTIFY IF PT NEEDS 12L OR GREATER. PT CONTINOUS PULSE OX ALARMING READING 78% ON 9L. INCREASED T0 13L WITH IMPROVEMENT AND RESRPIRATORY THERAPIST NOTIFIED. RT ADJUSTED MASK AND LOWERED TO 10L WITH GOOD SATURATIONS. PER RT IF THIS CONTINUED TO HAPPEN PT MIGHT NEED TO SHAVED. PT ALSO REFUSED ASSISTANCE WITH TURNING. PER PT IN PCU THEY WERE TURNING HIM BECAUSE HE WAS "SICKER" HOWEVER NOW HE IS ABLE TO TURN AND DID NOT WANT TO BE BOTHERED.
--- NOTE | 2021-09-07 16:50 | NUR ---
SHIFT SUMMARY: PATIENT ALERT AND ORIENTED X4. HE HAS BEEN VERY TIRED AND EXHAUSTED THROUGHOUT THE SHIFT. STATES HE DID NOT SLEEP WELL LAST NIGHT AND KEPT GETTING WOKEN UP BY THE ALARM ON THE CONTINUOUS PULSE OX. HE CONTINUES TO BE ON IV LASIX AND IS "CONSTANTLY URINATING." HE WAS IN A 6/10 PAIN IN HIS ARMS AND BACK MIDWAY THROUGH THE SHIFT. GAVE HIM A DOSE OF OXYCODONE AND FLEXERIL AND HE HAS NOT COMPLAINED OF PAIN SINCE. HE HAS WEAKNESS IN HIS LEGS AND HAS SOME TROUBLE TRANSFERRING. HE IS CURRENTLY RESTING COMFORTABLY IN HIS RECLINER. CALL LIGHT IN REACH. WILL CONTINUE TO MONITOR UNTIL THE END OF THE SHIFT.
--- NOTE | 2021-09-07 18:03 | NUR ---
REVIEWED NOTES AND ASSESSMENTS CHARTED BY LOUISA, STUDENT NURSE AND AGREE WITH HER DOCUMENTATION FOR THIS PATIENT.
[2021-09-08 05:54] LABS: Hematocrit 47.6 % (37.0-53.0); Hemoglobin 14.7 g/dL (13.5-17.5); Mean Corpuscular HGB 28.5 pg (26.0-34.0); Mean Corpuscular HGB Conc 30.9 g/dL (31.5-36.5); Mean Corpuscular Volume 92 fL (80-100); Mean Platelet Volume 10.7 fL (9.1-12.4); Platelet Count 150 K/mm3 (150-400); RDW Coefficient Variation 13.4 % (11.7-14.2); RDW Standard Deviation 45.8 fL (35.1-46.3); Red Blood Cell Count 5.16 M/mm3 (4.30-5.90); White Blood Cell Count 6.59 K/mm3 (4.00-11.30)
[2021-09-08 06:21] LABS: Albumin, Blood 3.2 g/dL (3.4-5.0); Albumin/Globulin Ratio 0.6 (0.8-1.8); Bilirubin, Total 0.7 mg/dL (0.1-1.0); Bun/Creatinine Ratio 30.2 (12.0-20.0); Calcium, Blood 9.5 mg/dL (8.5-10.1); Creatinine, Blood 1.16 mg/dL (0.60-1.20); Globulin, Blood 5.1 g/dL (2.2-4.0); Magnesium, Blood 2.6 mg/dL (1.6-2.4); Total Protein, Blood 8.3 g/dL (6.4-8.2)
--- NOTE | 2021-09-08 07:16 | NUR ---
SHIFT SUMMARY PATIENT ALERT AND ORIENTED. MEDICATED PER EMAR FOR PAIN. NO ACUTE ISSUES NOTED OVERNIGHT. CALL LIGHT WITHIN REACH. REPORT GIVEN TO ONCOMING RN.
--- NOTE | 2021-09-08 15:24 | NUR ---
DISCHARGE SUMMARY PATIENT IS ALERT AND ORIENTED. PATIENT IS PLEASENT AND COOPERATIVE WITH CARE. PATIENT HAS HAD NO ACUTE EVENTS THIS SHIFT. VITAL SIGNS REVIWED. PATIENT IS BEING DISCHARGED HOME WITH . PATIENT WAS WHEELED OUT BY CYNTHIA GUTIERREZ. DISCHARGE INSTRUCTIONS WERE READ TO PATIENT AND , BOTH AGREED TO UNDERSTANDING. MEDICATIONS FAXED TO PHARMACY OF PATIENTS CHOICE.
== END 2021-09-08 15:45 | disposition home health service (06) | DRG 291 ==
LOC: ER 19:50 → ICUW 22:34 → PCU 22:34 → ICUW 09-02 00:36 → PCU 09-03 20:45 → MEDS 09-06 12:47
PROVIDERS: Emergency Medicine; Internal Medicine; ADMIT Internal Medicine
PROC: 5A09457 Assistance with Respiratory Ventilation, 24-96 Consecutive Hours, Continuous Positive Airway Pressure (ICD-10-PCS; principal; 2021-09-01)
DX: I11.0 Hypertensive heart disease with heart failure (principal); I50.33 Acute on chronic diastolic (congestive) heart failure; J96.21 Acute and chronic respiratory failure with hypoxia; J96.22 Acute and chronic respiratory failure with hypercapnia; G92.8 Other toxic encephalopathy; J44.1 Chronic obstructive pulmonary disease with (acute) exacerbation; E66.2 Morbid (severe) obesity with alveolar hypoventilation; Z20.822 Contact with and (suspected) exposure to COVID-19; G89.29 Other chronic pain; R73.9 Hyperglycemia, unspecified; D64.9 Anemia, unspecified; J44.9 Chronic obstructive pulmonary disease, unspecified; L40.50 Arthropathic psoriasis, unspecified; K75.81 Nonalcoholic steatohepatitis (NASH); K21.9 Gastro-esophageal reflux disease without esophagitis; F41.8 Other specified anxiety disorders; R82.71 Bacteriuria; T42.4X5A Adverse effect of benzodiazepines, initial encounter; B37.2 Candidiasis of skin and nail; I27.81 Cor pulmonale (chronic); K58.9 Irritable bowel syndrome, unspecified; Z98.84 Bariatric surgery status; Z90.89 Acquired absence of other organs; Z98.890 Other specified postprocedural states; Z88.0 Allergy status to penicillin; Z88.1 Allergy status to other antibiotic agents; Z88.2 Allergy status to sulfonamides; Z88.8 Allergy status to other drugs, medicaments and biological substances; Z79.51 Long term (current) use of inhaled steroids; Z79.899 Other long term (current) drug therapy
CPT/HCPCS: 0241U; 36415; 36600; 51703; 71045; 80048; 80053; 80069; 81001; 82140; 82550; 82803; 82947; 83036; 83735; 83880; 84145; 84443; 84484; 85025; 85027; 87077; 87081; 87086; 87186; 93005; 93010; 94640; 94660; 94664; 94760; 94762; 96372; 96374; 96375; 97110; 97116; 97161; 97165; 97530; 97535; 98960; 99285-25; A9270; C8929; J0696; J1120; J1650; J1940; J2060; J2930; J3480; J7040; Q9957

== ENCOUNTER 2021-09-15 01:28 | Day surgery (SDC) | payer OTHER ==
[~2021-09-15 01:28] MED LIST changes: +AMLODIPINE BESY10 MG PO; +FINA5 PO; +OMEP20ER; +SPIRONOLACTONE25 MG PO; +TAMSULOSIN HCL0.4 M1 PO
--- NOTE | 2021-09-15 14:15 | NUR ---
PT STATES HE WILL TAKE THE TYLENOL AND STEROID PRE MEDS. DECLINES BENEDRYL AT THIS TIME HE SAYS IT MAKES HIM TOO SLEEPY AND HE DOESN'T WANT TO SLEEP WITHOUT HIS BIPAP MACHINE HE REPORTS HE HAS SEVERE SLEEP APNEA.
[2021-09-15 15:14] LABS: BASOPHILS ABSOLUTE AUTO 0.05 K/mm3 (0.00-0.23); BASOPHILS PERCENT AUTO 1 % (0-2); EOSINOPHILS ABSOLUTE AUTO 0.15 K/mm3 (0.00-0.68); EOSINOPHILS PERCENT AUTO 2 % (0-6); Hematocrit 44.7 % (37.0-53.0); Hemoglobin 14.4 g/dL (13.5-17.5); IMMATURE GRAN ABSOLUTE AUTO 0.02 K/mm3 (0.00-0.10); IMMATURE GRAN PERCENT AUTO 0 % (0-1); LYMPHOCYTES ABSOLUTE AUTO 1.43 K/mm3 (0.84-5.20); LYMPHOCYTES PERCENT AUTO 23 % (21-46); MONOCYTES PERCENT AUTO 8 % (4-13); Mean Corpuscular HGB 28.6 pg (26.0-34.0); Mean Corpuscular HGB Conc 32.2 g/dL (31.5-36.5); Mean Corpuscular Volume 89 fL (80-100); Mean Platelet Volume 10.4 fL (9.1-12.4); NEUTROPHILS ABSOLUTE AUTO 4.19 K/mm3 (1.96-9.15); NEUTROPHILS PERCENT AUTO 66 % (41-73); Platelet Count 304 K/mm3 (150-400); RDW Coefficient Variation 13.3 % (11.7-14.2); RDW Standard Deviation 43.6 fL (35.1-46.3); Red Blood Cell Count 5.04 M/mm3 (4.30-5.90); White Blood Cell Count 6.34 K/mm3 (4.00-11.30)
[2021-09-15 15:28] LABS: Albumin, Blood 3.5 g/dL (3.4-5.0); Albumin/Globulin Ratio 0.8 (0.8-1.8); Bilirubin, Total 0.5 mg/dL (0.1-1.0); Bun/Creatinine Ratio 36.6 (12.0-20.0); Calcium, Blood 9.6 mg/dL (8.5-10.1); Creatinine, Blood 0.77 mg/dL (0.60-1.20); Globulin, Blood 4.4 g/dL (2.2-4.0); Potassium, Blood 4.7 mmol/L (3.5-5.5); Total Protein, Blood 7.9 g/dL (6.4-8.2)
[2021-09-15] MEDS ORDERED: BUMETANIDE0.5 M6 PO (15:47)
== END 2021-09-15 17:27 | disposition home or self-care (01) ==
LOC: ATC 01:28
PROVIDERS: Internal Medicine Rheumatology
DX: L40.59 Other psoriatic arthropathy (principal)
CPT/HCPCS: 80053; 85025; 85651; 96375; 96413; 96415; A9270; J2920; J7050; Q5103

== ENCOUNTER → 2022-02-28 | Outpatient (CLI) | payer OTHER ==
[~2022-02-28] MED LIST changes: +BUMETANIDE0.5 M6 PO
[2022-02-28 19:36] LABS: Bun/Creatinine Ratio 27.2 (12.0-20.0); Calcium, Blood 8.7 mg/dL (8.5-10.1); Creatinine, Blood 0.62 mg/dL (0.60-1.20); Magnesium, Blood 2.5 mg/dL (1.6-2.4); Potassium, Blood 3.8 mmol/L (3.5-5.5)
== END | disposition home or self-care (01) ==
LOC: LAB SHORT 16:35
PROVIDERS: Family Medicine
DX: I50.32 Chronic diastolic (congestive) heart failure (principal)
CPT/HCPCS: 80048; 83735; 83880

== ENCOUNTER 2022-05-01 18:34 | Inpatient (IN) | payer OTHER ==
[~2022-05-01] VITALS: Ht 170.2 cm; Wt 185.5 kg
[2022-05-01 19:32] LABS: PCO2 Arterial 72.7 mmHg (35-45); PO2 Arterial 66.3 mmHg (80-100); pH Blood Arterial 7.34 (7.35-7.45)
[2022-05-01 19:57] LABS: BASOPHILS ABSOLUTE AUTO 0.05 K/mm3 (0.00-0.23); BASOPHILS PERCENT AUTO 1 % (0-2); EOSINOPHILS PERCENT AUTO 2 % (0-6); Hematocrit 37.2 % (37.0-53.0); Hemoglobin 11.6 g/dL (13.5-17.5); IMMATURE GRAN ABSOLUTE AUTO 0.02 K/mm3 (0.00-0.10); IMMATURE GRAN PERCENT AUTO 0 % (0-1); LYMPHOCYTES ABSOLUTE AUTO 0.86 K/mm3 (0.84-5.20); LYMPHOCYTES PERCENT AUTO 10 % (21-46); MONOCYTES ABSOLUTE AUTO 0.71 K/mm3 (0.16-1.47); MONOCYTES PERCENT AUTO 8 % (4-13); Mean Corpuscular HGB 29.3 pg (26.0-34.0); Mean Corpuscular HGB Conc 31.2 g/dL (31.5-36.5); Mean Corpuscular Volume 94 fL (80-100); NEUTROPHILS ABSOLUTE AUTO 6.63 K/mm3 (1.96-9.15); NEUTROPHILS PERCENT AUTO 78 % (41-73); Platelet Count 168 K/mm3 (150-400); RDW Coefficient Variation 13.2 % (11.7-14.2); RDW Standard Deviation 45.2 fL (35.1-46.3); Red Blood Cell Count 3.96 M/mm3 (4.30-5.90); White Blood Cell Count 8.47 K/mm3 (4.00-11.30)
[2022-05-01 20:26] LABS: Albumin, Blood 2.7 g/dL (3.4-5.0); Albumin/Globulin Ratio 0.6 (0.8-1.8); Bilirubin, Total 0.6 mg/dL (0.1-1.0); Bun/Creatinine Ratio 15.8 (12.0-20.0); Creatinine, Blood 0.57 mg/dL (0.60-1.20); Globulin, Blood 4.7 g/dL (2.2-4.0); Potassium, Blood 4.5 mmol/L (3.5-5.5); Total Protein, Blood 7.4 g/dL (6.4-8.2)
[2022-05-01 20:43] LABS: Magnesium, Blood 1.7 mg/dL (1.6-2.4)
[2022-05-01 21:56] LABS: Influenza A, PCR NEGATIVE (NEGATIVE); Influenza B, PCR NEGATIVE (NEGATIVE); Resp Syncytial Virus, PCR NEGATIVE (NEGATIVE); SARS-Cov-2 (COVID-19) PCR, MMC NEGATIVE (NEGATIVE)
[2022-05-02 05:42] LABS: Bun/Creatinine Ratio 17.5 (12.0-20.0); Calcium, Blood 8.9 mg/dL (8.5-10.1); Creatinine, Blood 0.52 mg/dL (0.60-1.20); Potassium, Blood 4.4 mmol/L (3.5-5.5)
--- NOTE | 2022-05-02 06:12 | NUR ---
ARRIVAL TO [facility]/SHIFT SUMMARY PT ARRIVED TO [facility] AT APPROXIMATELY 0330. PT SLID OVER FROM ER GURNEY TO HOSPITAL BED BY 5 CLINICAL STAFF MEMBERS. RT AT BEDSIDE PUTTING PT ON BiPAP, SETTINGS 18/12 35% FiO2, SpO2> 92%, DENIES SOB. PT A&Ox4, ORIENTED TO CALL LIGHT/UNIT, COMMUNICATES NEEDS APPROPRIATELY. PT IS VERY TALKATIVE AND MAKES ODD STATEMENTS AT TIMES. BP STABLE, SINUS 80-90's, DENIES CP/PRESSURE. PROVIDED WOUND CARE, PHOTOS IN CHART, WOUND CONSULT ORDERED. PT CONTINENT OF URINE, USED BEDPAN FOR VOID, NO BM THIS SHIFT. VSS REMAINED STABLE SINCE ARRIVAL. SpO2> 92% ON 6L VIA NC OR BiPAP 18/12 35% FiO2, DENIES SOB. BP STABLE, SINUS 90's, DENIES CP/PRESSURE. PT RESTING, WILL REPORT TO ONCOMING RN.
--- NOTE | 2022-05-02 13:33 | NUR ---
Upon receiving a referral for spiritual care, I visit patient. The patient is pleasant and mindful of others. He talks about his medical issues and the anxiety that comes with it for him. We explore avenues of anxiety containment. Patient shares about his spiritual journey and the prayers he sent up when he was racing for air and getting confused last night. We talk about his family and he is tearful at times when he discusses the possibility of his health issues "taking him out" to soon (he feels like his voice in this window in his grandchildren's lives is crucial). Patient explains about the deeper concerns and priorities he has in this season. I encourage self care, reinforce helpful attitudes and practices, and provide therapeutic listening, spiritual guidance and prayer. Patient responded well and showed signs of being encouraged in his esteban, his focus and his love for others. I will continue to remian available to patient and family.
--- NOTE | 2022-05-02 18:04 | NUR ---
SHIFT SUMMARY PATIENT TRANSFERED FROM PCU AT 1715. PATIENT SETTLED INTO ROOM. PATIENT ORIENTED TO CALL LIGHT AND TV CONTROL. PATIENT IS A&O X4. PATIENT IS A SBA TO THE CHAIR. PATIENT PREFERS TO SLEEP IN THE CHAIR. PATIENT IS ON 5L VIA N/C, SATURATING AT 95%. PATIENT WEARS CPAP/BIPAP AT NIGHT. PATIENT DENIES PAIN, NAUSEA, AND SHORTNESS OF BREATH. PATIENT AT BEDSIDE DURING TRANSFER. PATIENT IV FLUSHES. PATIENT IS EATING AND DRINKING WELL. PATIENT IS PLEASANT AND COOPERATIVE WITH CARE.
--- NOTE | 2022-05-03 04:49 | NUR ---
SHIFT SUMMARY PATIENT IS ALERT AND ORIENTED. PATIENT HAS BEEN PLEASENT AND COOPERATIVE WITH CARE. PATIENT IS STILL ON 5L NC SATTING ABOVE 93 PERCENT. PATIENT HAS BEEN WEARING CPAP/BIPAP OFF AND ON ALL NIGHT. NO ACUTE EVENTS THIS SHIFT. VITAL SIGNS REVIEWED. PATIENT HAS NOT COMPLAINED OF PAIN, NAUSEA, SOB OR VOMITTING THIS SHIFT. PATIENT HAS BEEN PLEASENT AND COOPERATIVE WITH CARE. BED IN LOCKED AND LOWEST POSITION. CALL LIGHT IN PLACE. WILL MONITOR UNTIL SHIFT CHANGE.
[2022-05-03 05:29] LABS: BASOPHILS ABSOLUTE AUTO 0.01 K/mm3 (0.00-0.23); BASOPHILS PERCENT AUTO 0 % (0-2); EOSINOPHILS PERCENT AUTO 0 % (0-6); Hematocrit 36.9 % (37.0-53.0); IMMATURE GRAN ABSOLUTE AUTO 0.03 K/mm3 (0.00-0.10); IMMATURE GRAN PERCENT AUTO 0 % (0-1); LYMPHOCYTES ABSOLUTE AUTO 1.05 K/mm3 (0.84-5.20); LYMPHOCYTES PERCENT AUTO 10 % (21-46); MONOCYTES ABSOLUTE AUTO 0.56 K/mm3 (0.16-1.47); MONOCYTES PERCENT AUTO 6 % (4-13); Mean Corpuscular HGB 29.6 pg (26.0-34.0); Mean Corpuscular HGB Conc 32.5 g/dL (31.5-36.5); Mean Corpuscular Volume 91 fL (80-100); Mean Platelet Volume 9.8 fL (9.1-12.4); NEUTROPHILS ABSOLUTE AUTO 8.43 K/mm3 (1.96-9.15); NEUTROPHILS PERCENT AUTO 84 % (41-73); Platelet Count 197 K/mm3 (150-400); RDW Coefficient Variation 12.8 % (11.7-14.2); RDW Standard Deviation 42.9 fL (35.1-46.3); Red Blood Cell Count 4.06 M/mm3 (4.30-5.90); White Blood Cell Count 10.08 K/mm3 (4.00-11.30)
[2022-05-03 05:56] LABS: Bun/Creatinine Ratio 32.8 (12.0-20.0); Calcium, Blood 9.5 mg/dL (8.5-10.1); Creatinine, Blood 0.52 mg/dL (0.60-1.20); Potassium, Blood 4.3 mmol/L (3.5-5.5)
--- NOTE | 2022-05-03 16:08 | NUR ---
WOUND CARE WOUND CHECK TO BUTTOCKS. PT HAS WHAT APPEARS TO BE AN ABCESS ON PERINEUM THAT MAY TRACT DOWN TO SCROTUM. ON LIGHT PALPATION THIS RN OBSERVED LARGE AMOUNT OF FOUL SMELLING PUPURULENT DRAINAGE. CULTURE TAKEN. NOTIFIED DR. CARLISLE BY TELEPHONE THAT WOUND MAY NEED TO BE LANCED AND WOULD MOST LIKELY BENEFIT FROM IMAGING AND ANTIBIOTICS.
--- NOTE | 2022-05-03 18:48 | NUR ---
END OF SHIFT SUMMARY: PATIENT UP TO THE RECLINER THROUGHOUT THE DAY. PATIENT HAS PAIN IN HIS VERY EDEMATOUS SCROTUM. WOUND PRESENT ON THE BACK SIDE THAT WAS ASSESSED BY COOLER SUPERVISOR JOSE MARIA TODAY. PAIN CONTROLLED WITH PRN PAIN MEDICATIONS AND REPOSITIONING. PATIENT ABLE TO STAND WITH WALKER. PATIENT DID NOT DEMONSTRATE INCREASED SHORTNESS OF BREATH WITH ACTIVITY. SPO2 SATURATIONS 94-96% ON 4.5LPM. UNABLE TO WEEN THE PATIENT TO A LOWER O2 LEVEL. PATIENT WEARS BIPAP WITH SLEEP. URINE WAS DARK YELLOW THROUGHOUT SHIFT. NO SIGNIFICANT INCREASE IN URINARY OUTPUT NOTED WITH DIURETIC TODAY (BUMEX).
--- NOTE | 2022-05-04 03:05 | NUR ---
PATIENT HAVING MOMENTS OF FRUSTRATION AND AGITATION WHEN UP TO BR WITH TWO ASSIST AND FWW. MORBIDLY OBESE. HAVING URINARY URGENCY AND NOT WANTING TO WAIT FOR EXTRA ASSISTANCE FOR BEDPAN. REPORTS WANTS TO GO HOME. ONCE SETTLED BACK INTO CHAIR PATIENT COOPERATIVE. WCTM.
--- NOTE | 2022-05-04 04:04 | NUR ---
SHIFT SUMMARY PATIENT HAD NO ACUTE CHANGES. ALERT AND ORIENTED. TWO ASSIST WITH FWW TO BR OR CHAIR. MORBIDLY OBESE USING BARIATRIC BEDPAN. PIV REMAINS INTACT. IV SOLU=MEDROL SCHEDULED. ON BIPAP AT NIGHT USING 4L O2 BLEED AND 5L WHEN OFF BIPAP. SLEPT IN RECLINER. DENIES CHEST PAIN AND N/V. REPORTED SCROTAL PAIN AND OXYCODONE 5 MG AND TYLENOL 650 MG GIVEN PER EMAR. RT IN FOR ASSESSMENT AND SETUP BIPAP. CALL LIGHT IN REACH. BED IN LOWEST POSITION. WILL CONTINUE TO MONITOR UNTIL DAY SHIFT NURSE ASSUMES CARE.
[2022-05-04 05:27] LABS: Hematocrit 36.7 % (37.0-53.0); Hemoglobin 11.8 g/dL (13.5-17.5)
[2022-05-04 06:39] LABS: Bun/Creatinine Ratio 42.5 (12.0-20.0); Calcium, Blood 8.9 mg/dL (8.5-10.1); Creatinine, Blood 0.54 mg/dL (0.60-1.20); Potassium, Blood 4.5 mmol/L (3.5-5.5)
--- NOTE | 2022-05-04 11:27 | NUR ---
Patient is sitting on a chair and alert. Patient tells me about his active life prior to his medical issues and the struggle his condition has placed on his spouse in recent years. He talks about his life growing up and the toll that his parents divorce took on him when he was a 12 y/o boy. He is tearful in talking about his love for God and family as he describes how grateful he is. He tells me several times that he has taken his "stay alive pills" when sharing about his desire to do everything in his power to be around for his spouse, children and grandchildren. We explore helpful options for dealing with the physical limitations and current home care needs. I provide therapeutic listening, gentle day camp counselor and prayer. Patient responds well and shows signs of increased hope about his future and the future of his family.
[2022-05-04] MEDS ORDERED: JUVEN PACKET1 EAC3 PO (12:14)
[2022-05-04] MEDS ORDERED: OXYC5 PO (12:14)
[2022-05-04] MEDS ORDERED: VISBIOME 112.51 EACH PO (12:15)
[2022-05-04] MEDS ORDERED: DOXY100 PO (12:17)
[2022-05-04] MEDS ORDERED: FURO40 (12:17)
[2022-05-04] MEDS ORDERED: PRED20 PO (12:24)
--- NOTE | 2022-05-04 15:37 | NUR ---
DISCHARGE NOTE PT EDUCATED PRIOR TO DISCHARGE REGARDING FOLLOW UP APPOINTMENTS AND MEDICATIONS. RN PROVIDED PT WITH IMPORTANCE OF COMPLETING ANTIBIOTIC SERIES, PT VOCALIZES UNDERSTANDING. PT PROVIDED WITH HARD PRESCRIPTIONS FOR PAIN MEDICATIONS. R FOREARM IV REMOVED WITHOUT COMPLICATIONS. PT ESCORTED BY , RIDING IN PERSONAL WHEELCHAIR.
--- NOTE | 2022-05-04 16:02 | NUR ---
PT DISCHARGED AT 1545 HOME. PT AOX4 AND COOPERATIVE OF ALL CARE. PT WAS A STAND BY ASSIST TO RESTROOM. ALL PAPERWORK REVIEWED WITH PT AND HIS PRIOR TO DISCHARGE EDUCATIONAL MATERIAL SENT WITH PT. ALL PERSONAL BELONGINGS COLLECTED AND TAKEN HOME. NO DISTRESS NOTED, PT ESCORTED OUT USING HIS PERSONAL WHEELCHAIR.
== END 2022-05-04 15:41 | disposition home or self-care (01) | DRG 189 ==
LOC: ER 18:34 → EDBEDREQ 22:57 → PCU 05-02 00:13 → ERHOLD 05-02 00:13 → PCU 05-02 03:40 → MEDS 05-02 16:52
PROVIDERS: Emergency Medicine; Student in an Organized Health Care Education/Training Program; ADMIT Internal Medicine
PROC: 5A09357 Assistance with Respiratory Ventilation, Less than 24 Consecutive Hours, Continuous Positive Airway Pressure (ICD-10-PCS; principal; 2022-05-02)
DX: J96.21 Acute and chronic respiratory failure with hypoxia (principal); G92.8 Other toxic encephalopathy; J44.1 Chronic obstructive pulmonary disease with (acute) exacerbation; I50.32 Chronic diastolic (congestive) heart failure; Z68.44 Body mass index [BMI] 60.0-69.9, adult; E66.2 Morbid (severe) obesity with alveolar hypoventilation; J96.22 Acute and chronic respiratory failure with hypercapnia; B95.62 Methicillin resistant Staphylococcus aureus infection as the cause of diseases classified elsewhere; M19.90 Unspecified osteoarthritis, unspecified site; R33.9 Retention of urine, unspecified; F32.A Depression, unspecified; I11.0 Hypertensive heart disease with heart failure; L89.899 Pressure ulcer of other site, unspecified stage; M25.559 Pain in unspecified hip; G89.29 Other chronic pain; F41.9 Anxiety disorder, unspecified; K46.9 Unspecified abdominal hernia without obstruction or gangrene; K76.0 Fatty (change of) liver, not elsewhere classified; K58.9 Irritable bowel syndrome, unspecified; Z20.822 Contact with and (suspected) exposure to COVID-19; Z88.0 Allergy status to penicillin; Z88.2 Allergy status to sulfonamides; Z88.8 Allergy status to other drugs, medicaments and biological substances; Z91.048 Other nonmedicinal substance allergy status; Z98.890 Other specified postprocedural states; Z79.899 Other long term (current) drug therapy; Z79.51 Long term (current) use of inhaled steroids; Z79.891 Long term (current) use of opiate analgesic; Z79.52 Long term (current) use of systemic steroids; Z98.84 Bariatric surgery status
CPT/HCPCS: 0241U; 36415; 36600; 71045; 80048; 80053; 82803; 83735; 83880; 84145; 84484; 85014; 85018; 85025; 87070; 87075; 87077; 87147; 87186; 87205; 93005; 93010; 94640; 94660; 94664; 94667; 94762; 96374; 96375; 97110; 97161; 97165; 97530; 98960; 99285-25; A9270; J1650; J1885; J1940; J2930

== ENCOUNTER 2022-09-13 22:05 | Inpatient (IN) | payer OTHER ==
[~2022-09-13] VITALS: Ht 170.2 cm; Wt 192.8 kg
[~2022-09-13 22:05] MED LIST changes: +DOXY100 PO; +JUVEN PACKET1 EAC3 PO; -OMEP20ER; +OMEP20ER PO; +OXYC5 PO; +VISBIOME 112.51 EACH PO
[2022-09-13 22:30] LABS: BASOPHILS ABSOLUTE AUTO 0.04 K/mm3 (0.00-0.23); BASOPHILS PERCENT AUTO 1 % (0-2); EOSINOPHILS ABSOLUTE AUTO 0.15 K/mm3 (0.00-0.68); EOSINOPHILS PERCENT AUTO 2 % (0-6); Hematocrit 41.2 % (37.0-53.0); Hemoglobin 12.4 g/dL (13.5-17.5); IMMATURE GRAN ABSOLUTE AUTO 0.01 K/mm3 (0.00-0.10); IMMATURE GRAN PERCENT AUTO 0 % (0-1); LYMPHOCYTES ABSOLUTE AUTO 1.03 K/mm3 (0.84-5.20); LYMPHOCYTES PERCENT AUTO 14 % (21-46); MONOCYTES ABSOLUTE AUTO 0.52 K/mm3 (0.16-1.47); MONOCYTES PERCENT AUTO 7 % (4-13); Mean Corpuscular HGB 28.4 pg (26.0-34.0); Mean Corpuscular HGB Conc 30.1 g/dL (31.5-36.5); Mean Corpuscular Volume 95 fL (80-100); Mean Platelet Volume 9.9 fL (9.1-12.4); NEUTROPHILS ABSOLUTE AUTO 5.38 K/mm3 (1.96-9.15); NEUTROPHILS PERCENT AUTO 76 % (41-73); Platelet Count 139 K/mm3 (150-400); RDW Coefficient Variation 12.8 % (11.7-14.2); RDW Standard Deviation 44.8 fL (35.1-46.3); Red Blood Cell Count 4.36 M/mm3 (4.30-5.90); White Blood Cell Count 7.13 K/mm3 (4.00-11.30)
[2022-09-13] MEDS ORDERED: Cyclobenzaprine5 MG PO (22:41)
[2022-09-13 22:42] LABS: Albumin/Globulin Ratio 0.7 (0.8-1.8); Bilirubin, Total 0.5 mg/dL (0.1-1.0); Bun/Creatinine Ratio 21.6 (12.0-20.0); Calcium, Blood 8.4 mg/dL (8.5-10.1); Creatinine, Blood 0.65 mg/dL (0.60-1.20); Globulin, Blood 4.4 g/dL (2.2-4.0); Potassium, Blood 4.8 mmol/L (3.5-5.5); Total Protein, Blood 7.4 g/dL (6.4-8.2)
[2022-09-13 22:53] LABS: Base Excess Venous 12.7 mmol/L; Bicarbonate Venous 33.6 mmol/L (24.0-30.0); PCO2 Venous 71.1 mmHg (38-42); pH Blood Venous 7.34 (7.34-7.37)
[2022-09-14] MEDS ORDERED: PRENATAL PO (02:18)
[2022-09-14] MEDS ORDERED: OXYC5 PO (02:18)
[2022-09-14] MEDS ORDERED: VITAMIN D PO (02:25)
[2022-09-14 03:37] VITALS: BP 133/67
--- NOTE | 2022-09-14 03:54 | NUR ---
ARRIVAL PT ARRIVED TO THE FLOOR, NEW ADMIT FROM ER. ARRIVED ON AN OXIMIZER ON 4L WITH SATS 85-90%. SATS NOTED TO DROP WITH SPEAKING AND MOVING. PT A/OX4, REPORTS BEING ABLE TO WALK TO HIS BATHROOM AT HOME AT BASELINE. COOPERATIVE WITH CARE. PURE WICK HOOKED TO SUCTION. LIFT SHEET UNDER PT, BED IN LOW, CALL LIGHT IN REACH, BIPAP ON.
[2022-09-14 05:43] LABS: BASOPHILS ABSOLUTE AUTO 0.03 K/mm3 (0.00-0.23); BASOPHILS PERCENT AUTO 1 % (0-2); EOSINOPHILS ABSOLUTE AUTO 0.12 K/mm3 (0.00-0.68); EOSINOPHILS PERCENT AUTO 2 % (0-6); Hematocrit 38.4 % (37.0-53.0); IMMATURE GRAN ABSOLUTE AUTO 0.02 K/mm3 (0.00-0.10); IMMATURE GRAN PERCENT AUTO 0 % (0-1); LYMPHOCYTES ABSOLUTE AUTO 1.17 K/mm3 (0.84-5.20); LYMPHOCYTES PERCENT AUTO 18 % (21-46); MONOCYTES ABSOLUTE AUTO 0.51 K/mm3 (0.16-1.47); MONOCYTES PERCENT AUTO 8 % (4-13); Mean Corpuscular HGB 28.8 pg (26.0-34.0); Mean Corpuscular HGB Conc 31.3 g/dL (31.5-36.5); Mean Corpuscular Volume 92 fL (80-100); Mean Platelet Volume 10.3 fL (9.1-12.4); NEUTROPHILS ABSOLUTE AUTO 4.68 K/mm3 (1.96-9.15); NEUTROPHILS PERCENT AUTO 72 % (41-73); Platelet Count 139 K/mm3 (150-400); RDW Coefficient Variation 12.9 % (11.7-14.2); RDW Standard Deviation 43.7 fL (35.1-46.3); Red Blood Cell Count 4.17 M/mm3 (4.30-5.90); White Blood Cell Count 6.53 K/mm3 (4.00-11.30)
--- NOTE | 2022-09-14 06:00 | NUR ---
SHIFT SUMMARY VSS. SATS NOTED TO BE MID 85-90% WITH BIPAP ON. PT STRUGGLING TO KEEP BIPAP ON DUE TO IT BEING UNCOMFOTABLE AND FEELING RESTRICTING. PT REPORTS T/O THE NIGHT OF STRUGGLING WITH ANXIETY. OTD OF ATTIVAN OBTAINED. PT DID NOT SLEEP AT ALL D/T HIP PAIN AND ANXIETY. PT TOLLERATING PO INTAKE W/O N/V. PUREWICK IN PLACE TO HELP DIVERT URINE FROM BED, WORKING WELL. REPLACED THIS AM. PLAN FOR PT TO REMAIN ON BIPAP AND HAVE VBG TRENDED. THE PATIENT IS CURRENTLY RESTING, DENIES ANY NEEDS, CALL LIGHT IN REACH
[2022-09-14 06:04] LABS: Albumin, Blood 2.9 g/dL (3.4-5.0); Albumin/Globulin Ratio 0.7 (0.8-1.8); Bilirubin, Total 0.7 mg/dL (0.1-1.0); Bun/Creatinine Ratio 19.7 (12.0-20.0); Calcium, Blood 8.6 mg/dL (8.5-10.1); Creatinine, Blood 0.61 mg/dL (0.60-1.20); Globulin, Blood 4.1 g/dL (2.2-4.0)
[2022-09-14 08:19] VITALS: BP 133/74
[2022-09-14 17:04] VITALS: BP 121/69
--- NOTE | 2022-09-14 17:08 | NUR ---
PT IS A/OX3, FORGETFULL AND DISORIENTED AT TIMES. PT IS PLEASANT AND COOPERATIVE. THIS AM WHILE IN BED THE PT REPORTED NOT BEING ABLE TO GET COMFORTABLE, AND REPORTED UNCONTROLED PAIN. PT WAS MEDICATED FOR PAIN. THE PT WANTED TO SIT ON THE SIDE OF THE BED. HE WAS HELPED UP TO THE SIDE OF THE BED. THEN THE PT WANTED TO TRY STANDING WITH THE FWW. THE PT WAS ABLE TO STAND, HOWEVER, HE WAS NOT ABLE TO SIT BACK ON THE BED PROPERLY DUE TO IT'S HEIGHT. ONCE THE PT WAS ABLE TO LAY BACK DOWN HE BECAME SOB AND PANICKED HIS O2 SAT'S DROPPED JUST BELOW 70%. ONCE THE PT WAS REPOSITIONED AND CALMED DOWN HE WAS ABLE TO FULLY RECOVER HIS OXYGEN SAT'S AT 10L/MIN BLEED INTO HIS BIPAP. THIS AFTERNOON THE PT WAS TRANSFERED TO A BARIATRIC RECLINER AND WAS ABLE TO GET MORE COMFORTABLE. THE PT SLEPT T/O THE AFTERNOON. PTS CALL LIGHT IS WITHIN REACH. PT IS TAKING A BREAK FROM THE BIPAP, ON O2 @ 9L/MIN. WILL CONTINUE TO MONITOR AND ASSESS FOR CHANGES
[2022-09-14 19:53] VITALS: BP 120/67
[2022-09-15 03:09] VITALS: BP 120/67
[2022-09-15 05:50] LABS: BASOPHILS ABSOLUTE AUTO 0.03 K/mm3 (0.00-0.23); BASOPHILS PERCENT AUTO 0 % (0-2); EOSINOPHILS ABSOLUTE AUTO 0.12 K/mm3 (0.00-0.68); EOSINOPHILS PERCENT AUTO 2 % (0-6); IMMATURE GRAN ABSOLUTE AUTO 0.01 K/mm3 (0.00-0.10); IMMATURE GRAN PERCENT AUTO 0 % (0-1); LYMPHOCYTES ABSOLUTE AUTO 1.15 K/mm3 (0.84-5.20); LYMPHOCYTES PERCENT AUTO 16 % (21-46); MONOCYTES ABSOLUTE AUTO 0.46 K/mm3 (0.16-1.47); MONOCYTES PERCENT AUTO 7 % (4-13); Mean Corpuscular HGB 28.9 pg (26.0-34.0); Mean Corpuscular HGB Conc 31.6 g/dL (31.5-36.5); Mean Corpuscular Volume 92 fL (80-100); Mean Platelet Volume 10.3 fL (9.1-12.4); NEUTROPHILS ABSOLUTE AUTO 5.29 K/mm3 (1.96-9.15); NEUTROPHILS PERCENT AUTO 75 % (41-73); Platelet Count 132 K/mm3 (150-400); RDW Coefficient Variation 12.9 % (11.7-14.2); RDW Standard Deviation 42.9 fL (35.1-46.3); Red Blood Cell Count 4.15 M/mm3 (4.30-5.90); White Blood Cell Count 7.06 K/mm3 (4.00-11.30)
[2022-09-15 06:41] LABS: Albumin, Blood 2.8 g/dL (3.4-5.0); Anion Gap 4 mmol/L (6-16); Blood Urea Nitrogen 12 mg/dL (8-24); Bun/Creatinine Ratio 21.5 (12.0-20.0); CO2, Blood 39 mmol/L (21-32); Calcium, Blood 8.5 mg/dL (8.5-10.1); Chloride, Blood 92 mmol/L (98-108); Creatinine, Blood 0.56 mg/dL (0.60-1.20); Glomerular Filtration Rate 115 (60-); Glucose, Blood 92 mg/dL (70-99); Magnesium, Blood 1.6 mg/dL (1.6-2.4); Phosphorus, Blood 3.8 mg/dL (2.5-4.9); Potassium, Blood 3.8 mmol/L (3.5-5.5); Sodium, Blood 135 mmol/L (136-145)
--- NOTE | 2022-09-15 07:13 | NUR ---
Patient was awake and alert most of the night. Pulling off his BIPAP or 02. Oxygen levels during these events which would occur every 10-15 minutes ranged from 72% - 88%. RT in several times to make adjustments to BIPAP and 02 for patient comfort. Staff made several attempts to adjust his position, but none met his need for comfort. this RN suggested several times that we could perform much better positioning if the patient would allow us to help him to bed, however he refused to get out of the recliner. purewick urine suction in use all night replaced multiple times as patient would alter his position in the chair frequently. call placed to night hospitalist requesting additional medication for anxiety as the 50mg dose of vistaril did not phase him. Order for 1 mg PO Ativan received and given.
[2022-09-15 08:19] VITALS: BP 129/64
[2022-09-15 15:41] VITALS: BP 105/59
--- NOTE | 2022-09-15 17:12 | NUR ---
PT IS A/OX3, PLEASANT AND COOPERATIVE. FORGETFULL AT TIMES. THE PT REPORTS FEELING SOMEWHAT MORE COMFORTABLE COMPARED TO YESTERDAY. PT APPEARS TO BE BREATHING A LITTLE EASIER. THE CONTINUES TO WEAR HIS BI PAP FOR MOST OF THE DAY WHILE ASLEEP AND HAS BEEN COMPLIANT WITH IT, WITH PERIODIC BREAKS FOR MEALS. THE PT WAS MEDICATED FOR PAIN AND ANXIETY T/O THE DAY. PTS WAS IN TO VISIT AND HELPED WITH HIS CARE TODAY. CALL LIGHT IN REACH, WILL CONTINUE TO MOONIOTR AND ASSESS FOR CHANGES
[2022-09-15 19:57] VITALS: BP 124/68
[2022-09-16 01:44] VITALS: BP 114/63
[2022-09-16 06:26] LABS: BASOPHILS ABSOLUTE AUTO 0.03 K/mm3 (0.00-0.23); BASOPHILS PERCENT AUTO 0 % (0-2); EOSINOPHILS ABSOLUTE AUTO 0.12 K/mm3 (0.00-0.68); EOSINOPHILS PERCENT AUTO 2 % (0-6); Hematocrit 38.6 % (37.0-53.0); Hemoglobin 12.2 g/dL (13.5-17.5); IMMATURE GRAN ABSOLUTE AUTO 0.02 K/mm3 (0.00-0.10); IMMATURE GRAN PERCENT AUTO 0 % (0-1); LYMPHOCYTES ABSOLUTE AUTO 1.29 K/mm3 (0.84-5.20); LYMPHOCYTES PERCENT AUTO 18 % (21-46); MONOCYTES ABSOLUTE AUTO 0.61 K/mm3 (0.16-1.47); MONOCYTES PERCENT AUTO 8 % (4-13); Mean Corpuscular HGB 28.8 pg (26.0-34.0); Mean Corpuscular HGB Conc 31.6 g/dL (31.5-36.5); Mean Corpuscular Volume 91 fL (80-100); Mean Platelet Volume 10.2 fL (9.1-12.4); NEUTROPHILS ABSOLUTE AUTO 5.25 K/mm3 (1.96-9.15); NEUTROPHILS PERCENT AUTO 72 % (41-73); Platelet Count 127 K/mm3 (150-400); RDW Coefficient Variation 12.8 % (11.7-14.2); RDW Standard Deviation 42.2 fL (35.1-46.3); Red Blood Cell Count 4.24 M/mm3 (4.30-5.90); White Blood Cell Count 7.32 K/mm3 (4.00-11.30)
--- NOTE | 2022-09-16 06:48 | NUR ---
ADEQUATE URINE OUTPUT. AO, PLEASANT, ABLE TO PULL SELF UP IN BED WITH SOME EFFORT. MAINTAINED O2 AND/OR BIPAP WITH 7L O2 DURING THE NIGHT, SATS AT 87-92%. PRN MEDS GIVEN FOR PAIN, STATES IT BRINGS PAIN FROM HIGH TO MODERATE LEVEL, "5/10 IS A RELIEF". NO PRN ANXIETY MEDS REQUESTED. UNEVENTFUL NIGHT.
[2022-09-16 06:54] LABS: Albumin, Blood 2.6 g/dL (3.4-5.0); Anion Gap 3 mmol/L (6-16); Blood Urea Nitrogen 10 mg/dL (8-24); Bun/Creatinine Ratio 18.2 (12.0-20.0); CO2, Blood 42 mmol/L (21-32); Calcium, Blood 8.5 mg/dL (8.5-10.1); Chloride, Blood 89 mmol/L (98-108); Creatinine, Blood 0.55 mg/dL (0.60-1.20); Glomerular Filtration Rate 116 (60-); Glucose, Blood 91 mg/dL (70-99); Magnesium, Blood 1.8 mg/dL (1.6-2.4); Phosphorus, Blood 3.7 mg/dL (2.5-4.9); Potassium, Blood 3.6 mmol/L (3.5-5.5); Sodium, Blood 134 mmol/L (136-145)
[2022-09-16 07:30] VITALS: BP 117/64
[2022-09-16 14:55] VITALS: BP 108/60
--- NOTE | 2022-09-16 16:48 | NUR ---
SHIFT SUMMARY NO ACUTE CHANGES NOTED DURING SHIFT. PT ALERT AND ORIENTED, CALLS APPROPRIATELY. PT REMAINS ON 7L NC, BIPAP WHEN SLEEPING WITH 7L. PT INCONTINENT, PUREWICK IN PLACE. DRESSING TO R LEG CHANGED TODAY. PT LIFTED TO RECLINER FOR MAJORITY OF AFTERNOON, TOLERATED. PT WORKING WITH PHYSICAL THERAPY, ABLE TO STAND TODAY. MEDICATED PER EMAR FOR PAIN. WILL CONTINUE TO MONITOR. CALL LIGHT WITHIN REACH.
[2022-09-16 19:34] VITALS: BP 118/62
[2022-09-17 02:26] VITALS: BP 114/66
--- NOTE | 2022-09-17 05:49 | NUR ---
X-LARGE BM LAST NIGHT. BIPAP IN PLACE MUCH OF SHIFT, O2 SATS STILL DROP TO MID 80'S INTERMITTENTLY DURING SLEEP. ALSO DESATS WITH ACTIVITY/REPOSITIONING SELF. TURNS IN BED WITH VERBAL CUES. PUREWICK IN PLACE, ADEQUATE OUTPUT.
[2022-09-17 07:12] LABS: BASOPHILS ABSOLUTE AUTO 0.03 K/mm3 (0.00-0.23); BASOPHILS PERCENT AUTO 0 % (0-2); EOSINOPHILS ABSOLUTE AUTO 0.09 K/mm3 (0.00-0.68); EOSINOPHILS PERCENT AUTO 1 % (0-6); Hematocrit 41.1 % (37.0-53.0); Hemoglobin 13.1 g/dL (13.5-17.5); IMMATURE GRAN ABSOLUTE AUTO 0.02 K/mm3 (0.00-0.10); IMMATURE GRAN PERCENT AUTO 0 % (0-1); LYMPHOCYTES PERCENT AUTO 19 % (21-46); MONOCYTES ABSOLUTE AUTO 0.77 K/mm3 (0.16-1.47); MONOCYTES PERCENT AUTO 9 % (4-13); Mean Corpuscular HGB 28.9 pg (26.0-34.0); Mean Corpuscular HGB Conc 31.9 g/dL (31.5-36.5); Mean Corpuscular Volume 91 fL (80-100); Mean Platelet Volume 10.1 fL (9.1-12.4); NEUTROPHILS ABSOLUTE AUTO 6.13 K/mm3 (1.96-9.15); NEUTROPHILS PERCENT AUTO 71 % (41-73); Platelet Count 130 K/mm3 (150-400); RDW Coefficient Variation 12.6 % (11.7-14.2); RDW Standard Deviation 41.9 fL (35.1-46.3); Red Blood Cell Count 4.54 M/mm3 (4.30-5.90); White Blood Cell Count 8.64 K/mm3 (4.00-11.30)
[2022-09-17 07:25] LABS: Bun/Creatinine Ratio 27.2 (12.0-20.0); Calcium, Blood 8.6 mg/dL (8.5-10.1); Creatinine, Blood 0.51 mg/dL (0.60-1.20); Potassium, Blood 3.7 mmol/L (3.5-5.5)
[2022-09-17 08:22] VITALS: BP 129/69
[2022-09-17 15:04] VITALS: BP 105/56
--- NOTE | 2022-09-17 17:20 | NUR ---
SHIFT SUMMARY NO ACUTE CHANGES DURING SHIFT. PT ALERT AND ORIENTED, CALLS APPROPRIATELY. ELECTROLYTE REPLACEMENT COMPLETED PER EMAR. PT DOWN TO 5L NC WHILE AWAKE, CPAP WHILE SLEEPING. PUREWICK IN PLACE. LESS C/O PAIN TODAY, NO PRN PAIN MEDICATIONS GIVEN. WILL CONTINUE TO MONITOR. CALL MANRIQUEZ WITHIN REACH.
[2022-09-17 20:05] VITALS: BP 109/58
[2022-09-18 03:53] VITALS: BP 128/62
--- NOTE | 2022-09-18 06:15 | NUR ---
PT REQUESTED LESS PAIN MEDS LAST NIGHT THAN 2 PREVIOUS [address]S. BIPAP IN PLACE WHILE SLEEPING. ADEQUATE URINE OUTPUT. REQUESTS SPIRITUAL CARE VISIT TO COME DURING THE DAY AT SOME POINT. AO, CALLS APPROPRIATELY. NO SIGNIFICANT CHANGES, MAINTAINING O2 SATS BETWEEN 86-92 ON 7L
[2022-09-18 07:40] VITALS: BP 125/64
[2022-09-18 08:00] LABS: Albumin, Blood 2.5 g/dL (3.4-5.0); Anion Gap 4 mmol/L (6-16); Blood Urea Nitrogen 13 mg/dL (8-24); Bun/Creatinine Ratio 27.5 (12.0-20.0); CO2, Blood 42 mmol/L (21-32); Calcium, Blood 8.4 mg/dL (8.5-10.1); Chloride, Blood 86 mmol/L (98-108); Creatinine, Blood 0.47 mg/dL (0.60-1.20); Glomerular Filtration Rate 121 (60-); Glucose, Blood 97 mg/dL (70-99); Magnesium, Blood 1.9 mg/dL (1.6-2.4); Phosphorus, Blood 3.6 mg/dL (2.5-4.9); Potassium, Blood 3.2 mmol/L (3.5-5.5); Sodium, Blood 132 mmol/L (136-145)
[2022-09-18 16:13] VITALS: BP 92/63
--- NOTE | 2022-09-18 16:31 | NUR ---
SHIFT SUMMARY NO ACUTE CHANGES DURING SHIFT. PT ALERT AND ORIENTED, CALLS APPROPRIATELY. PT ON 5L NC WHILE AWAKE, BIPAP QHS. PUREWICK IN PLACE D/T PANNUS. PT LIFTED INTO RECLINER FOR MAJORITY OF DAY. PT ABLE TO STAND AT BEDSIDE WITH WALKER WITH PHYSICAL THERAPY. PT REFUSING PLACEMENT AND H/H AT THIS TIME. MEDICATED WITH PRN PAIN MEDICATIONS PER EMAR. WILL CONTINUE TO MONITOR. CALL LIGHT WITHIN REACH.
[2022-09-18 17:15] VITALS: BP 105/58
[2022-09-18 20:26] VITALS: BP 126/50
[2022-09-19 02:30] VITALS: BP 104/55
[2022-09-19 05:09] LABS: BASOPHILS ABSOLUTE AUTO 0.05 K/mm3 (0.00-0.23); BASOPHILS PERCENT AUTO 1 % (0-2); EOSINOPHILS ABSOLUTE AUTO 0.13 K/mm3 (0.00-0.68); EOSINOPHILS PERCENT AUTO 2 % (0-6); Hematocrit 40.1 % (37.0-53.0); Hemoglobin 12.8 g/dL (13.5-17.5); IMMATURE GRAN ABSOLUTE AUTO 0.02 K/mm3 (0.00-0.10); IMMATURE GRAN PERCENT AUTO 0 % (0-1); LYMPHOCYTES ABSOLUTE AUTO 1.27 K/mm3 (0.84-5.20); LYMPHOCYTES PERCENT AUTO 18 % (21-46); MONOCYTES ABSOLUTE AUTO 0.73 K/mm3 (0.16-1.47); MONOCYTES PERCENT AUTO 10 % (4-13); Mean Corpuscular HGB 28.1 pg (26.0-34.0); Mean Corpuscular HGB Conc 31.9 g/dL (31.5-36.5); Mean Corpuscular Volume 88 fL (80-100); Mean Platelet Volume 9.9 fL (9.1-12.4); NEUTROPHILS ABSOLUTE AUTO 4.82 K/mm3 (1.96-9.15); NEUTROPHILS PERCENT AUTO 69 % (41-73); Platelet Count 147 K/mm3 (150-400); RDW Coefficient Variation 12.4 % (11.7-14.2); RDW Standard Deviation 39.8 fL (35.1-46.3); Red Blood Cell Count 4.56 M/mm3 (4.30-5.90); White Blood Cell Count 7.02 K/mm3 (4.00-11.30)
[2022-09-19 05:30] LABS: Albumin, Blood 2.6 g/dL (3.4-5.0); Anion Gap 3 mmol/L (6-16); Blood Urea Nitrogen 15 mg/dL (8-24); Bun/Creatinine Ratio 26.8 (12.0-20.0); CO2, Blood 41 mmol/L (21-32); Calcium, Blood 8.4 mg/dL (8.5-10.1); Chloride, Blood 85 mmol/L (98-108); Creatinine, Blood 0.56 mg/dL (0.60-1.20); Glomerular Filtration Rate 115 (60-); Glucose, Blood 100 mg/dL (70-99); Magnesium, Blood 1.8 mg/dL (1.6-2.4); Sodium, Blood 129 mmol/L (136-145)
[2022-09-19 07:51] VITALS: BP 119/65
[2022-09-19] MEDS ORDERED: METO100ER PO (13:13)
[2022-09-19] MEDS ORDERED: LOSA25 PO (13:13)
[2022-09-19] MEDS ORDERED: BUSP5 PO (13:13)
[2022-09-19] MEDS ORDERED: GABA300 PO (13:14)
[2022-09-19] MEDS ORDERED: DOCU100 PO (13:14)
[2022-09-19 15:02] VITALS: BP 84/60
--- NOTE | 2022-09-19 16:00 | NUR ---
DISCHARGE SUMMARY: PT AND EDUCATED ON DISCHARGE PLAN AND MEDICATIONS. PT AND VU. ASSISTED PT INTO HIS POWER CHAIR. ASSISTED WITH PACKING UP BELONGINGS AND SENT WITH PT. PT BROUGHT HOME PORTABLE O2 TANK. ASSISTED PT TO PLACE O2 ON AT 4 LPM VIA NC. PT DENIED NEED FOR ESCORT. PT UTILIZED POWER CHAIR AND LEFT WITH . REPORTS SHE HAS A VAN HE RIDES IN AND SHE DOES NOT HAVE TO TRANSFER PT TO SEAT IN VAN HE CAN STAY IN HIS POWER CHAIR.
== END 2022-09-19 15:35 | disposition home health service (06) | DRG 291 ==
LOC: ER 22:05 → MEDS 22:06 → ER 22:06 → MEDS 22:06 → ENPENDDIS 09-19 15:23 → MEDS 09-19 15:35
PROVIDERS: Emergency Medicine; Family Medicine; Student in an Organized Health Care Education/Training Program; ADMIT Student in an Organized Health Care Education/Training Program
PROC: 5A09357 Assistance with Respiratory Ventilation, Less than 24 Consecutive Hours, Continuous Positive Airway Pressure (ICD-10-PCS; principal; 2022-09-19)
DX: I11.0 Hypertensive heart disease with heart failure (principal); I50.33 Acute on chronic diastolic (congestive) heart failure; J96.21 Acute and chronic respiratory failure with hypoxia; J96.22 Acute and chronic respiratory failure with hypercapnia; E66.2 Morbid (severe) obesity with alveolar hypoventilation; Z68.44 Body mass index [BMI] 60.0-69.9, adult; E87.3 Alkalosis; G93.49 Other encephalopathy; F41.9 Anxiety disorder, unspecified; D64.9 Anemia, unspecified; J44.9 Chronic obstructive pulmonary disease, unspecified; I87.8 Other specified disorders of veins; F32.A Depression, unspecified; M25.552 Pain in left hip; M25.551 Pain in right hip; L40.50 Arthropathic psoriasis, unspecified; G89.29 Other chronic pain; Z88.0 Allergy status to penicillin; Z88.8 Allergy status to other drugs, medicaments and biological substances; Z91.048 Other nonmedicinal substance allergy status; Z79.51 Long term (current) use of inhaled steroids; Z79.891 Long term (current) use of opiate analgesic; Z79.899 Other long term (current) drug therapy; Z90.89 Acquired absence of other organs; Z98.84 Bariatric surgery status; Z98.890 Other specified postprocedural states
CPT/HCPCS: 36415; 71045; 80048; 80053; 80069; 82803; 82947; 83735; 83880; 84132; 84145; 84484; 85025; 93005; 93010; 94640; 94660; 94664; 94761; 94762; 96372; 96374; 96375; 96376; 97110; 97110-CQ; 97116-CQ; 97161; 97530; 99285-25; A9270; G0378; J1650; J1940; J2060; J3475

== ENCOUNTER 2023-05-18 07:10 | Inpatient (IN) | payer OTHER ==
[2023-05-18] VITALS (7 sets, daily range): BP systolic 102–142; BP diastolic 63–83
[~2023-05-18] VITALS: Ht 175.3 cm; Wt 180.6 kg
[~2023-05-18 07:10] MED LIST changes: +BUSP5 PO; +Cyclobenzaprine5 MG PO; +DOCU100 PO; +GABA300 PO; +LOSA25 PO; +METO100ER PO; +PRENATAL PO; +VITAMIN D PO
[2023-05-18 07:53] LABS: BASOPHILS ABSOLUTE AUTO 0.04 K/mm3 (0.00-0.23); BASOPHILS PERCENT AUTO 0 % (0-2); EOSINOPHILS ABSOLUTE AUTO 0.03 K/mm3 (0.00-0.68); EOSINOPHILS PERCENT AUTO 0 % (0-6); Hematocrit 37.2 % (37.0-53.0); Hemoglobin 12.3 g/dL (13.5-17.5); IMMATURE GRAN ABSOLUTE AUTO 0.09 K/mm3 (0.00-0.10); IMMATURE GRAN PERCENT AUTO 1 % (0-1); LYMPHOCYTES ABSOLUTE AUTO 0.94 K/mm3 (0.84-5.20); LYMPHOCYTES PERCENT AUTO 6 % (21-46); MONOCYTES ABSOLUTE AUTO 0.75 K/mm3 (0.16-1.47); MONOCYTES PERCENT AUTO 5 % (4-13); Mean Corpuscular HGB 29.9 pg (26.0-34.0); Mean Corpuscular HGB Conc 33.1 g/dL (31.5-36.5); Mean Corpuscular Volume 90 fL (80-100); NEUTROPHILS ABSOLUTE AUTO 14.61 K/mm3 (1.96-9.15); NEUTROPHILS PERCENT AUTO 89 % (41-73); Platelet Count 138 K/mm3 (150-400); RDW Coefficient Variation 12.5 % (11.7-14.2); RDW Standard Deviation 41.4 fL (35.1-46.3); Red Blood Cell Count 4.12 M/mm3 (4.30-5.90); White Blood Cell Count 16.46 K/mm3 (4.00-11.30)
[2023-05-18 08:09] LABS: Albumin/Globulin Ratio 0.7 (0.8-1.8); Bilirubin, Total 0.7 mg/dL (0.1-1.0); Bun/Creatinine Ratio 20.3 (12.0-20.0); Calcium, Blood 8.5 mg/dL (8.5-10.1); Creatinine, Blood 0.64 mg/dL (0.60-1.20); Globulin, Blood 4.1 g/dL (2.2-4.0); Total Protein, Blood 7.1 g/dL (6.4-8.2)
[2023-05-18 08:35] LABS: Influenza A, PCR NEGATIVE (NEGATIVE); Influenza B, PCR NEGATIVE (NEGATIVE); Resp Syncytial Virus, PCR NEGATIVE (NEGATIVE); SARS-Cov-2 (COVID-19) PCR, MMC NEGATIVE (NEGATIVE)
[2023-05-18 08:40] LABS: Base Excess Venous 12.3 mmol/L; Bicarbonate Venous 34.2 mmol/L (24.0-30.0); PCO2 Venous 52.5 mmHg (38-42); pH Blood Venous 7.45 (7.34-7.37)
[2023-05-18] MEDS ORDERED: Ipratropium/Albuterol SulF 2.5-0.5MG/3 ML Amp INH ONE (08:45)
[2023-05-18] MEDS ORDERED: Albuterol 2.5 MG/3 ML VIAL INH SCH (08:45)
[2023-05-18] MEDS ORDERED: CefTRIAXone Sodium 2,000 MG in NS 100 ML IV ONE (08:55)
[2023-05-18] MEDS ORDERED: Ketorolac Tromethamine 30mg Vial IV ONE (08:55)
[2023-05-18] MEDS ORDERED: Azithromycin 500 MG in NS 250 ML IV ONE (08:55)
[2023-05-18] MEDS ORDERED: Cyclobenzaprine HCl 10 MG Tab PO PRN (10:35)
[2023-05-18] MEDS ORDERED: Albuterol 2.5 MG/3 ML VIAL INH PRN (10:45)
[2023-05-18] MEDS ORDERED: Ipratropium/Albuterol SulF 2.5-0.5MG/3 ML Amp INH SCH (10:50)
[2023-05-18] MEDS ORDERED: FLU VACC QS2023-24(6MOS UP)/PF 60 MCG/0.5 ML SYRINGE IM SCH (10:50)
[2023-05-18] MEDS ORDERED: Spironolactone 25 MG Tab PO SCH (11:00)
[2023-05-18] MEDS ORDERED: AmLODIPine Besylate 5 MG Tab PO SCH (11:00)
[2023-05-18] MEDS ORDERED: Losartan Potassium 25 MG Tab PO SCH (11:00)
[2023-05-18] MEDS ORDERED: Finasteride 5 MG Tab PO SCH (11:00)
[2023-05-18] MEDS ORDERED: OxyCODONE 5 mg/Acetamin 325 mg TABLET PO PRN (11:00)
[2023-05-18] MEDS ORDERED: OxyCODONE 5 mg/Acetamin 325 mg TABLET PO ONE (11:00)
[2023-05-18] MEDS ORDERED: Furosemide 10 MG/ML 4ML Vial IV SCH (11:00)
[2023-05-18] MEDS ORDERED: DULoxetine HCL 60 MG Capsule DR PO SCH (12:00)
--- NOTE | 2023-05-18 13:21 | NUR ---
Admission/[place] of Care: Patient arrived via ED gurney to room ICU 13 at approx 1250hr. Patient alert and oriented x4. VSS, spO2 96% on 4L/NC, denies dyspnea/SOB, no signs of respiratory distress. Patient c/o pain to his coccyx while in ED gurney and requesting he transfer to recliner in room vs bed. Staff attempted to provide education r/t pressure relief and pressure injury prevention, but patient persistent in wanting to sit in recliner. Stood and transferred via 2 person stand-by assist and FFW without difficulty. Patient able to void with use of purewick device without difficulty. Peripheral IV x1 patent and intact. Call light in reach, makes needs known. Awaiting arrival of patient's for accurate med rec and history. Will continue to monitor.
[2023-05-18] MEDS ORDERED: BusPIRone HCl 5 MG Tab PO SCH (14:00)
[2023-05-18] MEDS ORDERED: Gabapentin 300 MG Cap PO SCH (14:00)
[2023-05-18] MEDS ORDERED: MethylPREDNISolone Sod Succ 125 MG Vial IV SCH (16:00)
[2023-05-18] MEDS ORDERED: TORSE20 PO (16:16)
[2023-05-18] MEDS ORDERED: TAMS.4ER PO (16:17)
[2023-05-18] MEDS ORDERED: Omeprazole 20 MG CapCR PO SCH (16:30)
--- NOTE | 2023-05-18 17:46 | NUR ---
Shift Summary: No significant changes throughout remainder of shift. After getting into bed, patient sleeping unless stimulated by staff. VS remain stable. BiPAP ordered per Dr. Damon, to use while patient is sleeping due to obstructive sleep apnea. Tolerating PO intake without difficulty. Call light in reach, makes needs known. Will continue to monitor until report to NOC shift RN.
--- NOTE | 2023-05-18 19:47 | NUR ---
INITIAL NOTE Report received, patient mildly anxious, pleasant, c/o generalized pain to back, hips, legs, states not normally this anxious, recently harder to get around, move around room. Additionally decreased BT and states no BM for some time, noted 2 orders for 100 mg DSS, patient requested both to be given after discussing risk/benefit. VS remain stable at present time, afebrile, cuff placed to right lower leg which verbalized is better than upper arm for comfort. Additionally discussed patient situation, loss of control due to medical issues, and patient anxiety improved when he started talking about automechanics and RC cars, states he also has a video game he enjoys playing that helps with anxiety. Requested medications for HS now, to include Buspirone and Gabapentin, also received PRN Oxy and Flexeril. RT arrived for PRN breathing treatment, in room presently with patient, patient denies needs.
[2023-05-18] MEDS ORDERED: Metoprolol Succinate 50 MG TABCR PO SCH (21:00)
[2023-05-18] MEDS ORDERED: Docusate Sodium 100 MG Cap PO SCH ×2 (21:00)
[2023-05-19] VITALS (21 sets, daily range): BP systolic 104–146; BP diastolic 60–99
[2023-05-19 03:51] LABS: Base Excess Venous 11.4 mmol/L; Bicarbonate Venous 32.5 mmol/L (24.0-30.0); PCO2 Venous 60.3 mmHg (38-42); pH Blood Venous 7.39 (7.34-7.37)
[2023-05-19 04:00] LABS: BASOPHILS ABSOLUTE AUTO 0.01 K/mm3 (0.00-0.23); BASOPHILS PERCENT AUTO 0 % (0-2); EOSINOPHILS PERCENT AUTO 0 % (0-6); Hematocrit 38.3 % (37.0-53.0); Hemoglobin 12.7 g/dL (13.5-17.5); IMMATURE GRAN ABSOLUTE AUTO 0.06 K/mm3 (0.00-0.10); IMMATURE GRAN PERCENT AUTO 0 % (0-1); LYMPHOCYTES ABSOLUTE AUTO 0.75 K/mm3 (0.84-5.20); LYMPHOCYTES PERCENT AUTO 5 % (21-46); MONOCYTES ABSOLUTE AUTO 0.07 K/mm3 (0.16-1.47); MONOCYTES PERCENT AUTO 1 % (4-13); Mean Corpuscular HGB 30.1 pg (26.0-34.0); Mean Corpuscular HGB Conc 33.2 g/dL (31.5-36.5); Mean Corpuscular Volume 91 fL (80-100); Mean Platelet Volume 10.2 fL (9.1-12.4); NEUTROPHILS ABSOLUTE AUTO 12.94 K/mm3 (1.96-9.15); NEUTROPHILS PERCENT AUTO 94 % (41-73); Platelet Count 146 K/mm3 (150-400); RDW Coefficient Variation 12.5 % (11.7-14.2); RDW Standard Deviation 41.5 fL (35.1-46.3); Red Blood Cell Count 4.22 M/mm3 (4.30-5.90); White Blood Cell Count 13.83 K/mm3 (4.00-11.30)
[2023-05-19 04:15] LABS: Bun/Creatinine Ratio 26.8 (12.0-20.0); Creatinine, Blood 0.52 mg/dL (0.60-1.20); Potassium, Blood 4.1 mmol/L (3.5-5.5)
--- NOTE | 2023-05-19 06:37 | NUR ---
SHIFT SUMMARY No acute changes overnight, patient tolerated CPAP briefly, longer earlier and recently for very short duration, stated "I'm up, I'm not gonna fall asleep again". VS otherwise remained stable, earlier purewick changed, and linen changed, turned patient and placed lotion to tami area around dorsal opening to prevent skin breakdown. Additionally noted under testiclular area deep colored purple, and barely blanchable, appears to be at least borderline DTI, appeared to be several days old, discussed with patient as well. Denies issues and patient was unaware of this. Purewick remains in place, sufficient output. Requested menu earlier, brought to patient, also applied lotion to BLE. Call light in reach, no additional concerns noted. Report in progress.
[2023-05-19] MEDS ORDERED: Tamsulosin HCl 0.4 MG Cap PO SCH (09:00)
[2023-05-19] MEDS ORDERED: Azithromycin 500 MG in NS 250 ML IV SCH (09:00)
[2023-05-19] MEDS ORDERED: CefTRIAXone Sodium 1,000 MG in NS 50 ML IV SCH (09:00)
[2023-05-19] MEDS ORDERED: Spironolactone 50 MG Tab PO SCH (09:00)
[2023-05-19] MEDS ORDERED: Enoxaparin 40 MG/0.4 ML SYR SC SCH (09:00)
[2023-05-19] MEDS ORDERED: DEXTROMETHORPHAN/BENZOCAINE 1 EACH LOZENGE MT PRN (09:25)
--- NOTE | 2023-05-19 09:47 | NUR ---
CARE OF PT ASSUMED AT 0700. PT AWAKE AND ALERT. C/O GENERALIZED PAIN T/O JOINTS 06/16. PT'S SATS ARE >90% ON 4L O2 VIA N/C; THIS IS HIS BASELINE PER PT. BP STABLE. LUNGS CLEAR T/O, DIMINISHED TO BASES. LASIX GIVEN W GOOD URINE OUTPUT VIA PUREWICK.
--- NOTE | 2023-05-19 12:50 | NUR ---
PT SBA W WALKER TO CHAIR. PT WEAK BUT ABLE TO BEAR HIS OWN WEIGHT. PT ABLE TO SCOOT BACK IN BARIATRIC CHAIR, LEGS ELEVATED, PICKWICK REPLACED. FULL BEDBATH GIVEN. SATS REMAINED >90% WITH ACTIVITY. PT C/O CHRONIC GENERALIZED PAIN TO LEGS/JOINTS; OXY 5MG GIVEN PER ORDERS.
--- NOTE | 2023-05-19 16:22 | NUR ---
PT SBA BACK TO BED USING WALKER. DR OAKES IN TO SEE PT, FULL UPDATE GIVEN. PT NOW MEDICAL STATUS NO TELE.
--- NOTE | 2023-05-19 21:19 | NUR ---
UPDATE PT DECLINED 1999 TURN. STATES HE REPOSITIONS SELF FREQUENTLY D/T PAIN. PT STATES HE'S OK WITH 2199 PILLOW CK.
[2023-05-19] MEDS ORDERED: OxyCODONE 10/Acetamin 325 TABLET PO PRN (23:35)
[2023-05-19] MEDS ORDERED: Melatonin 5 MG Tablet PO SCH (23:40)
--- NOTE | 2023-05-20 01:01 | NUR ---
UPDATE TR BAND'S OFF W/ STABILIZER IN PLACE. SITE, FOREARM, AND HAND REMAIN UNCHANGED.
--- NOTE | 2023-05-20 03:36 | NUR ---
UPDATE DR LUNA NOTIFIED D/T PT HAVING SIGNIFICANT PAIN IN HIPS. COOLING/HEATING PAD, REPOSITIONING, OUT OF BED INTO CHAIR, AND MEDICATING PER EMAR WAS NOT ADEQUATE TO MANAGE PAIN. ORDER PLACED FOR Q4 FENTANYL (SEE EMAR).
[2023-05-20] MEDS ORDERED: FentaNYL Citrate 50 MCG/ML 2 ML Injection IV PRN (03:40)
[2023-05-20 04:13] VITALS: BP 161/72
--- NOTE | 2023-05-20 06:10 | NUR ---
SHIFT SUMMARY PT REMAINS A&O X4. DIFFICULTY MANAGING PAIN THIS EVENING. TREATING W/ OXYCODONE AND FENTANYL PER EMAR WHICH APPEARS TO BE EFFECTIVE AT THIS TIME. REPOSITIONING, HEATING/COOLING PAD, ETC WAS MINIMALLY EFFECTIVE. SPO2 >92% ON 4LNC; BIPAP WHILE SLEEPING (PT SLEPT FOR ABOUT AN HOUR THIS EVENING). NO OTHER ACUTE EVENTS.
[2023-05-20 07:48] VITALS: BP 145/82
[2023-05-20] MEDS ORDERED: NS 250 ML IV PRN (08:40)
--- NOTE | 2023-05-20 09:31 | NUR ---
CARE OF PT ASSUMED AT 0700. PT SBA TO CHAIR USING WALKER. PT'S SATS 96% ON 4L N/C; WHICH PT STATES IS AT HIS BASELINE OF 2-4L NEEDED. LUNGS ARE CLEAR, DIMINISHED TO BASES. BP STABLE. PT HAS HAD ADEQUATE URINE OUTPUT AND IS RECEIVING DAILY IV LASIX. SBA TO TOILET FOR BM. PT FOUND TO BE EXTREMELY IMPACTED. EXTRA LARGE AMT OF VERY HARD STOOL REMOVED. PTB THEN ASSISTED BACK TO CHAIR. PT C/O CHRONIC GENERALIZED PAIN T/O, AND JOINT PAIN T/O; PT FEELS THAT PAIN MAY BE WORSE D/T HOSPITAL BED AND CHAIR.
--- NOTE | 2023-05-20 14:59 | NUR ---
DR WATTS IN TO SEE PT AROUND 1300, FULL UPDATE GIVEN. DR WATTS WILL CONSIDER TORADOL FOR PAIN. PT SBA BACK TO BED AND TRANSFERED TO ROOM 338 IN STABLE CONDITION.
[2023-05-20] MEDS ORDERED: Ibuprofen 400 MG Tab PO PRN (16:15)
[2023-05-20 16:31] VITALS: BP 123/66
--- NOTE | 2023-05-20 17:19 | NUR ---
ASSUMPTION OF CARE NOTE: PATIENT ARRIVES TO ROOM AT 1422. ASSUMED CARE OF PATIENT. PATIENT TRANSFERRED TO BED c 2 MAX ASSIST STAND AND PIVOT USING FWW. PATIENT REPORTS MUSCLE SPASM AND REQUESTING FLEXERIL, MEDICATED c FLEXERIL c SLIGHT EFFECT. PATIENT IS INCONTINENCE OF BLADDER, PUREWICK IN PLACED, WORKING WELL c 400 MLS TOTAL YELLOW URINE OUTPUT SINCE TRANSFERRED TO UNIT. PATIENT RECEIVED SCHEDULED MEDS PER EMAR. VITAL SIGNS REVIEWED. CALL LIGHT IN REACH
--- NOTE | 2023-05-20 17:54 | NUR ---
SHIFT SUMMARY: PATIENT A/O TO SELF, PLACED, DATES AND CURRENT SITUATION, BUT SLOW TO RESPOND. PATIENT SOFT RESTRAINTS WAS DC'D AT 1000. PATIENT SLEPT FOR ABOUT 5 HRS THIS SHIFT. PATIENT STARTED ON BLADDER TRAINING AT 1200, TOLERATED WELL AND PLAN TO HAVE CASTRO CATH DC'D TOMORROW 05/21/23. PATIENT CASTRO PATENT, DRAINING c 1500 MLS TOTAL YELLOW URINE OUTPUT THIS SHIFT. PATIENT FAMILY AT BEDSIDE T/O THE DAY, UPDATE GIVEN TO (SON) CORINNA. PATIENT RECEIVED SCHEDULED MEDS PER EMAR. VITAL SIGNS REVIEWED. BED ALARM ON FOR SAFETY. CALL LIGHT IN REACH.
[2023-05-20] MEDS ORDERED: Azithromycin 250 MG Tab PO SCH (18:00)
[2023-05-20 19:50] VITALS: BP 126/99
[2023-05-20] MEDS ORDERED: Polyethylene Glycol 3350 17 gm PO SCH (21:00)
[2023-05-21 05:01] VITALS: BP 152/80
[2023-05-21 05:48] LABS: BASOPHILS PERCENT AUTO 0 % (0-2); EOSINOPHILS PERCENT AUTO 0 % (0-6); Hemoglobin 12.4 g/dL (13.5-17.5); IMMATURE GRAN ABSOLUTE AUTO 0.04 K/mm3 (0.00-0.10); IMMATURE GRAN PERCENT AUTO 1 % (0-1); LYMPHOCYTES ABSOLUTE AUTO 0.78 K/mm3 (0.84-5.20); LYMPHOCYTES PERCENT AUTO 11 % (21-46); MONOCYTES PERCENT AUTO 3 % (4-13); Mean Corpuscular HGB 30.1 pg (26.0-34.0); Mean Corpuscular HGB Conc 33.5 g/dL (31.5-36.5); Mean Corpuscular Volume 90 fL (80-100); Mean Platelet Volume 10.5 fL (9.1-12.4); NEUTROPHILS ABSOLUTE AUTO 5.96 K/mm3 (1.96-9.15); NEUTROPHILS PERCENT AUTO 85 % (41-73); Platelet Count 167 K/mm3 (150-400); RDW Standard Deviation 39.7 fL (35.1-46.3); Red Blood Cell Count 4.12 M/mm3 (4.30-5.90); White Blood Cell Count 6.98 K/mm3 (4.00-11.30)
--- NOTE | 2023-05-21 06:22 | NUR ---
SHIFT SUMMARY NOC PT A/O X 4. PLEASANT AND COOPERATIVE WITH CARE. NO ACUTE CHANGES TO REPORT. PT STILL ON O2 4L/NC MAINTAINING SPO2 >92% ON BIOX. PUREWICK IN PLACE FOR INCONTINENCE. PT CHRONIC PAIN BEING MANAGED PER EMAR WITH PO RX SO PT CAN DISCHARGE TODAY. PT IS CURRENTLY RESTING WITH BED IN LOWEST POSITION, AND CALL LIGHT WITHIN REACH.
[2023-05-21 06:24] LABS: Calcium, Blood 9.1 mg/dL (8.5-10.1); Creatinine, Blood 0.59 mg/dL (0.60-1.20)
[2023-05-21 07:44] VITALS: BP 131/63
[2023-05-21 08:40] LABS: PCO2 Arterial 55.9 mmHg (35-45); PO2 Arterial 60.5 mmHg (80-100); pH Blood Arterial 7.43 (7.35-7.45)
[2023-05-21] MEDS ORDERED: AZIT500 PO (13:14)
[2023-05-21] MEDS ORDERED: CEFU500T30 PO (13:15)
[2023-05-21] MEDS ORDERED: MIRALAX17 GM PO (13:15)
[2023-05-21] MEDS ORDERED: IPRAT-ALBUT 0.5-3 ML INH (13:16)
[2023-05-21] MEDS ORDERED: Deltasone 10 mg10 MG PO (13:19)
[2023-05-21] MEDS ORDERED: COMBIVENT RESPIM4 G1 INH (13:29)
--- NOTE | 2023-05-21 17:23 | NUR ---
PT AOX4 AND COOPERATIVE OF CARE. PT DISCHARGED AT 1610 WITH ALL PAPERWORK AND EDUCATIONAL MATERIAL SENT WITH PT NO DISTRESS NOTED. PT WAS TREATED FOR HIP PAIN AND MUSCHLE SPASMS PER EMAR. PT WAS ABLE TO STAND WITH WALKER AND GET INTO HIS OWN WHEELCHAIR WITH MINIMAL ASSISTANCE. PT HAD AND DAUGHTER TO TRANSPORT HOME. REFUSED NEED FOR ESCORT OUT.
== END 2023-05-21 16:20 | disposition home or self-care (01) | DRG 871 ==
LOC: ER 07:10 → ICUE 10:44 → MEDS 05-20 14:12
PROVIDERS: Internal Medicine; Student in an Organized Health Care Education/Training Program; ADMIT Internal Medicine
PROC: 3E03329 Introduction of Other Anti-infective into Peripheral Vein, Percutaneous Approach (ICD-10-PCS; principal; 2023-05-18)
PROC: 5A09457 Assistance with Respiratory Ventilation, 24-96 Consecutive Hours, Continuous Positive Airway Pressure (ICD-10-PCS; 2023-05-18)
PROC: 4A033R1 Measurement of Arterial Saturation, Peripheral, Percutaneous Approach (ICD-10-PCS; 2023-05-21)
DX: A41.9 Sepsis, unspecified organism (principal); G92.8 Other toxic encephalopathy; I50.33 Acute on chronic diastolic (congestive) heart failure; J18.9 Pneumonia, unspecified organism; J96.21 Acute and chronic respiratory failure with hypoxia; D84.821 Immunodeficiency due to drugs; J44.0 Chronic obstructive pulmonary disease with (acute) lower respiratory infection; J44.1 Chronic obstructive pulmonary disease with (acute) exacerbation; E66.2 Morbid (severe) obesity with alveolar hypoventilation; Z68.43 Body mass index [BMI] 50.0-59.9, adult; R65.20 Severe sepsis without septic shock; J98.4 Other disorders of lung; N40.0 Benign prostatic hyperplasia without lower urinary tract symptoms; L40.50 Arthropathic psoriasis, unspecified; K56.41 Fecal impaction; F32.A Depression, unspecified; F41.9 Anxiety disorder, unspecified; G89.29 Other chronic pain; I11.0 Hypertensive heart disease with heart failure; K76.0 Fatty (change of) liver, not elsewhere classified; Z98.84 Bariatric surgery status; Z99.81 Dependence on supplemental oxygen; Z11.52 Encounter for screening for COVID-19; Z79.891 Long term (current) use of opiate analgesic; Z79.51 Long term (current) use of inhaled steroids
CPT/HCPCS: 0241U; 36415; 36600; 71045; 80048; 80053; 82803; 83605; 83880; 84145; 85025; 87040; 93005; 93010; 94640; 94644; 94660; 94664; 94762; 96365; 96367; 96375; 99285-25; A9270; J0456; J0696; J1650; J1885; J1940; J2930; J3010; J7050

== ENCOUNTER → 2024-05-16 | Outpatient (CLI) | payer OTHER ==
[~2024-05-16] MED LIST changes: +CEFU500T30 PO; +DOCUZEN 8.6-501 EACH PO; +Deltasone 10 mg10 MG PO; +ENBREL SUR50 MG/1 M1 INJ; +IPRAT-ALBUT 0.5-3 ML INH; +MIRALAX17 GM PO; +OXYCODONE-ACET1 EAC2 PO; +SILVADENE20 G8; +TADALAFIL5 M1 PO; +TAMS.4ER PO; +TORSE20 PO; +TRIDERM28.4 GM TOP
[2024-05-16 20:37] LABS: Albumin, Blood 3.2 g/dL (3.4-5.0); Albumin/Globulin Ratio 0.9 (0.8-1.8); Bilirubin, Total 0.5 mg/dL (0.1-1.0); Bun/Creatinine Ratio 16.9 (12.0-20.0); Calcium, Blood 8.3 mg/dL (8.5-10.1); Creatinine, Blood 0.71 mg/dL (0.60-1.20); Globulin, Blood 3.5 g/dL (2.2-4.0); Percent Saturation 18.7 % (20.0-50.0); Potassium, Blood 4.2 mmol/L (3.5-5.5); Total Protein, Blood 6.7 g/dL (6.4-8.2)
== END | disposition home or self-care (01) ==
LOC: LAB SHORT 17:30
PROVIDERS: Internal Medicine
DX: D50.8 Other iron deficiency anemias (principal); E55.9 Vitamin D deficiency, unspecified; E53.9 Vitamin B deficiency, unspecified; K91.89 Other postprocedural complications and disorders of digestive system; Z98.84 Bariatric surgery status
CPT/HCPCS: 80053; 82306; 82607; 82728; 82746; 83540; 83550

== ENCOUNTER 2024-05-31 16:47 | Emergency (ER) | payer OTHER ==
[~2024-05-31] VITALS: Ht 170.2 cm; Wt 163.3 kg
[2024-05-31 17:02] VITALS: BP 132/69
== END 2024-05-31 18:08 | disposition home or self-care (01) ==
LOC: ER 16:47
DX: L98.491 Non-pressure chronic ulcer of skin of other sites limited to breakdown of skin (principal); L40.9 Psoriasis, unspecified; I11.0 Hypertensive heart disease with heart failure; I50.9 Heart failure, unspecified; J44.9 Chronic obstructive pulmonary disease, unspecified; G47.30 Sleep apnea, unspecified; Z88.1 Allergy status to other antibiotic agents; Z88.0 Allergy status to penicillin; Z88.2 Allergy status to sulfonamides; Z91.048 Other nonmedicinal substance allergy status; Z79.899 Other long term (current) drug therapy; Z79.2 Long term (current) use of antibiotics
CPT/HCPCS: 99282

== ENCOUNTER 2024-11-22 23:39 | Inpatient (IN) | payer OTHER ==
[~2024-11-22] VITALS: Ht 175.3 cm; Wt 178.7 kg
[2024-11-22 23:59] LABS: pH Blood Venous 7.41 (7.34-7.37)
[2024-11-23 00:01] LABS: BASOPHILS ABSOLUTE AUTO 0.04 K/mm3 (0.00-0.23); BASOPHILS PERCENT AUTO 1 % (0-2); EOSINOPHILS ABSOLUTE AUTO 0.04 K/mm3 (0.00-0.68); EOSINOPHILS PERCENT AUTO 1 % (0-6); Hematocrit 36.3 % (37.0-53.0); Hemoglobin 12.1 g/dL (13.5-17.5); IMMATURE GRAN ABSOLUTE AUTO 0.03 K/mm3 (0.00-0.10); IMMATURE GRAN PERCENT AUTO 1 % (0-1); LYMPHOCYTES ABSOLUTE AUTO 0.68 K/mm3 (0.84-5.20); LYMPHOCYTES PERCENT AUTO 12 % (21-46); MONOCYTES ABSOLUTE AUTO 0.30 K/mm3 (0.16-1.47); MONOCYTES PERCENT AUTO 5 % (4-13); Mean Corpuscular HGB Conc 33.3 g/dL (31.5-36.5); Mean Corpuscular Volume 91 fL (80-100); NEUTROPHILS ABSOLUTE AUTO 4.67 K/mm3 (1.96-9.15); NEUTROPHILS PERCENT AUTO 81 % (41-73); NRBC ABSOLUTE 0.00 K/mm3 (0.00-0.02); NRBC Auto 0.0 /100 WBC (0.0-0.2); Platelet Count 146 K/mm3 (150-400); RDW Coefficient Variation 12.5 % (11.7-14.2); RDW Standard Deviation 41.8 fL (35.1-46.3)
[2024-11-23 00:15] LABS: Prothrombin Time Results 11.4 Sec (9.7-11.5)
[2024-11-23 00:51] LABS: Source, Urine Clean Catch
[2024-11-23 00:52] LABS: Alanine Aminotransfer (ALT/SGP 14.0 U/L (12-78); Albumin, Blood 2.7 g/dL (3.4-5.0); Albumin/Globulin Ratio 0.6 (0.8-1.8); Anion Gap 6.0 mmol/L (3-11); Aspartate Aminotrans (AST/SGOT 18.0 U/L (12-37); Bilirubin, Total 0.3 mg/dL (0.1-1.0); Blood Urea Nitrogen 8.0 mg/dL (8-24); CO2, Blood 36.0 mmol/L (21-32); Calcium, Blood 8.0 mg/dL (8.5-10.1); Chloride, Blood 89.0 mmol/L (98-108); Creatinine, Blood 0.61 mg/dL (0.60-1.20); Globulin, Blood 4.2 g/dL (2.2-4.0); Glucose, Blood 101.0 mg/dL (70-99); Magnesium, Blood 1.7 mg/dL (1.6-2.4); Potassium, Blood 4.2 mmol/L (3.5-5.5); Sodium, Blood 127.0 mmol/L (136-145); Thyroid Stimulating Hormone 1.55 uIU/mL (0.360-4.800); Total Protein, Blood 6.9 g/dL (6.4-8.2)
[2024-11-23 00:59] LABS: Bilirubin, Urine Neg (Neg); Glucose Qualitative, Urine Neg (Neg); Ketones, Urine Neg (Neg); Leukocyte Esterase, Urine 2+ (Neg); Protein, Urine 1+ (Neg); Specific Gravity, Urine 1.010 (1.003-1.022); Urobilinogen, Urine NORM (Normal)
[2024-11-23 01:14] LABS: Color, Urine Yellow (P-Yellow)
[2024-11-23 01:15] LABS: Red Blood Cells, Urine 0-2 /hpf (0-2)
[2024-11-23] MEDS ORDERED: Morphine Sulfate 4 MG/1 ML Injection IV ONE (01:50)
[2024-11-23] MEDS ORDERED: Ondansetron HCl 2 MG / ML 2ML Vial IV PRN (02:25)
[2024-11-23] MEDS ORDERED: CefTRIAXone Sodium 1,000 MG in NS 100 ML IV SCH (02:33)
[2024-11-23] MEDS ORDERED: Ketorolac Tromethamine 15mg Vial IV PRN (02:35)
[2024-11-23] MEDS ORDERED: Polyethylene Glycol 3350 17 gm PO PRN (02:40)
[2024-11-23] MEDS ORDERED: NS 1,000 ML IV SCH (03:00)
[2024-11-23] MEDS ORDERED: NS 1,000 ML IV ONE (05:26)
[2024-11-23] MEDS ORDERED: Albuterol 2.5 MG/3 ML VIAL INH PRN (07:05)
[2024-11-23] MEDS ORDERED: Ipratropium/Albuterol SulF 2.5-0.5MG/3 ML Amp INH PRN (07:05)
[2024-11-23] MEDS ORDERED: ONDA4ODT MM (07:51)
[2024-11-23] MEDS ORDERED: LOSA50 PO (07:52)
[2024-11-23] MEDS ORDERED: METO5 PO (07:52)
[2024-11-23] MEDS ORDERED: Percocet 10-321 EACH PO (07:53)
[2024-11-23] MEDS ORDERED: Formoterol/Mometasone MDI 5/200 mcg 13 GM INH SCH (08:15)
[2024-11-23] MEDS ORDERED: Cholecalciferol 1000 Unit Tablet (=25MCG) PO SCH (09:00)
[2024-11-23] MEDS ORDERED: Torsemide 20 MG TAB PO SCH (09:00)
[2024-11-23] MEDS ORDERED: Enoxaparin 40 MG/0.4 ML SYR SC SCH (09:00)
[2024-11-23] MEDS ORDERED: DULoxetine HCL 60 MG Capsule DR PO SCH (09:00)
[2024-11-23] MEDS ORDERED: Lactobacil 2-S.Thermo-Bifido 1 1 Cap PO SCH (09:00)
[2024-11-23 10:12] LABS: BASOPHILS ABSOLUTE AUTO 0.02 K/mm3 (0.00-0.23); BASOPHILS PERCENT AUTO 0 % (0-2); EOSINOPHILS ABSOLUTE AUTO 0.05 K/mm3 (0.00-0.68); EOSINOPHILS PERCENT AUTO 1 % (0-6); Hematocrit 34.3 % (37.0-53.0); Hemoglobin 11.5 g/dL (13.5-17.5); IMMATURE GRAN ABSOLUTE AUTO 0.02 K/mm3 (0.00-0.10); IMMATURE GRAN PERCENT AUTO 0 % (0-1); LYMPHOCYTES ABSOLUTE AUTO 0.87 K/mm3 (0.84-5.20); LYMPHOCYTES PERCENT AUTO 15 % (21-46); MONOCYTES ABSOLUTE AUTO 0.31 K/mm3 (0.16-1.47); MONOCYTES PERCENT AUTO 5 % (4-13); Mean Corpuscular HGB Conc 33.5 g/dL (31.5-36.5); Mean Corpuscular Volume 90 fL (80-100); NEUTROPHILS ABSOLUTE AUTO 4.45 K/mm3 (1.96-9.15); NEUTROPHILS PERCENT AUTO 78 % (41-73); NRBC ABSOLUTE 0.00 K/mm3 (0.00-0.02); NRBC Auto 0.0 /100 WBC (0.0-0.2); Platelet Count 139 K/mm3 (150-400); RDW Coefficient Variation 12.5 % (11.7-14.2); RDW Standard Deviation 40.5 fL (35.1-46.3)
[2024-11-23 10:25] LABS: Alanine Aminotransfer (ALT/SGP 13.0 U/L (12-78); Albumin, Blood 2.5 g/dL (3.4-5.0); Albumin/Globulin Ratio 0.7 (0.8-1.8); Anion Gap 9.0 mmol/L (3-11); Aspartate Aminotrans (AST/SGOT 18.0 U/L (12-37); Bilirubin, Total 0.3 mg/dL (0.1-1.0); Blood Urea Nitrogen 8.0 mg/dL (8-24); CO2, Blood 33.0 mmol/L (21-32); Calcium, Blood 7.9 mg/dL (8.5-10.1); Chloride, Blood 90.0 mmol/L (98-108); Creatinine, Blood 0.55 mg/dL (0.60-1.20); Globulin, Blood 3.8 g/dL (2.2-4.0); Glucose, Blood 100.0 mg/dL (70-99); Magnesium, Blood 1.6 mg/dL (1.6-2.4); Potassium, Blood 4.1 mmol/L (3.5-5.5); Sodium, Blood 128.0 mmol/L (136-145); Total Protein, Blood 6.3 g/dL (6.4-8.2)
[2024-11-23 10:28] LABS: Osmolality, Serum 270.0 mos/KG (275-300)
[2024-11-23 15:55] VITALS: BP 137/64
--- NOTE | 2024-11-23 16:36 | NUR ---
SHIFT SUMMARY PT AOX3/4, SOLMNOLENT, COOPERATIVE, ABLE TO MAKE NEEDS KNOWN MOST OF THE TIME. PT DID ARRIVE APPROX 1345, EXPRESSED 10/10 PAIN, MEDICATED PER EMAR. PT REPORTED PAIN WENT DOWN TO 7/10. BEDREST, ON 2-3L O2 WHICH IS BASELINE. TOLERATING MEDICATION. FEMALE PUREWICK IN PLACE DUE TO PANNIS COVERING PENIS. PT DOES KEEP GOING IN AND OUT OF SLEEP. THIS RN HAS NOT WOKEN UP PT DUE TO PT NEEDING REST. CONT PULSE OX IN PLACE. BED IN LOWEST POSITION, CALL LIGHT WITHIN REACH.
[2024-11-23 19:16] VITALS: BP 147/82
[2024-11-24] MEDS ORDERED: OxyCODONE 10/Acetamin 325 TABLET PO PRN (03:50)
--- NOTE | 2024-11-24 05:03 | NUR ---
SHIFT SUMMARY A/OX4, LIFT USE FOR TRANSFERS. PT EXTREMELY ANXIOUS THIS SHIFT ONCE SPOUSE WENT HOME FOR THE NIGHT, UNABLE TO SLEEP THE WHOLE SHIFT. ATARAX AND ATIVAN GIVEN. C/O BILATERAL HIP PAIN, MEDICATED PER EMAR. PUREWICK IN PLACE. NO ACUTE CHANGES.
[2024-11-24 05:11] VITALS: BP 150/86
[2024-11-24 07:50] VITALS: BP 181/81
[2024-11-24 11:27] LABS: Hematocrit 34.3 % (37.0-53.0); Hemoglobin 11.8 g/dL (13.5-17.5); Mean Corpuscular HGB Conc 34.4 g/dL (31.5-36.5); Mean Corpuscular Volume 88 fL (80-100); NRBC ABSOLUTE 0.00 K/mm3 (0.00-0.02); NRBC Auto 0.0 /100 WBC (0.0-0.2); Platelet Count 141 K/mm3 (150-400); RDW Coefficient Variation 12.2 % (11.7-14.2); RDW Standard Deviation 39.4 fL (35.1-46.3)
[2024-11-24] MEDS ORDERED: CefTRIAXone Sodium 1,000 MG in NS 100 ML IV SCH (12:30)
[2024-11-24] MEDS ORDERED: NS 250 ML IV PRN (12:45)
[2024-11-24 12:49] LABS: Albumin, Blood 2.7 g/dL (3.4-5.0); Anion Gap 10 mmol/L (3-11); Blood Urea Nitrogen 9 mg/dL (8-24); CO2, Blood 31 mmol/L (21-32); Calcium, Blood 8.7 mg/dL (8.5-10.1); Chloride, Blood 86 mmol/L (98-108); Creatinine, Blood 0.53 mg/dL (0.60-1.20); Glucose, Blood 108 mg/dL (70-99); Magnesium, Blood 1.6 mg/dL (1.6-2.4); Phosphorus, Blood 3.6 mg/dL (2.5-4.9); Potassium, Blood 3.9 mmol/L (3.5-5.5); Sodium, Blood 123 mmol/L (136-145)
[2024-11-24 13:38] VITALS: BP 165/78
[2024-11-24 15:37] VITALS: BP 145/101
[2024-11-24] MEDS ORDERED: ERGO50000 PO (15:54)
[2024-11-24] MEDS ORDERED: TRIA15CR3 TOP (15:54)
[2024-11-24] MEDS ORDERED: FentaNYL Citrate 50 MCG/ML 2 ML Injection IV PRN (17:10)
--- NOTE | 2024-11-24 18:17 | NUR ---
SHIFT SUMMARY PT A&OX4, LIFT FOR TRANSFERS, TOLERATING PO, VOIDING, AND PAIN MANAGED PER EMAR. PT HYPERTENSIVE, BUT ASYMPTOMATIC. PT CONT TO C/O 10 OUT OF 10 PAIN AND CALL OUT. THIS RN NOTIFIED DURING PT ROUNDING AND EMAR UPDATED. PT UP IN CHAIR FOR BREAKFAST, BUT DID NOT TOLERATE IT WELL. CALL LIGHT WITHIN REACH AND PT ABLE TO MAKE NEEDS KNOWN.
[2024-11-24 19:50] VITALS: BP 133/68
[2024-11-25 03:32] VITALS: BP 148/79
--- NOTE | 2024-11-25 05:44 | NUR ---
Shift Summary Pt's L hip continues to be very painful, starting the shift at 10/10 and not going any lower than an 8. Medicated per emar and repositioned his L leg using pillows. He seemed to respond well to pillow repositioning, finally visibly relaxed after a few tries. He is c/o difficulty falling asleep, gave PRN Atarax and called the hospitalist who ordered PRN 10mg Melatonin. Purewick in place draining urine w/o issues. Pt requested muscle relaxer for spasms, gave as ordered in EMAR. Pt is AOx4, currently lift only. Tried once to reposition on his side with pillows but he didn't like it.
[2024-11-25 07:28] VITALS: BP 134/75
[2024-11-25] MEDS ORDERED: Lidocaine 4% 1 Patch TOP SCH (09:00)
[2024-11-25 11:22] LABS: Hematocrit 35.4 % (37.0-53.0); Hemoglobin 12.3 g/dL (13.5-17.5); Mean Corpuscular HGB Conc 34.7 g/dL (31.5-36.5); Mean Corpuscular Volume 88 fL (80-100); NRBC ABSOLUTE 0.00 K/mm3 (0.00-0.02); NRBC Auto 0.0 /100 WBC (0.0-0.2); Platelet Count 144 K/mm3 (150-400); RDW Coefficient Variation 12.4 % (11.7-14.2); RDW Standard Deviation 39.9 fL (35.1-46.3)
[2024-11-25 11:52] LABS: Anion Gap 4.0 mmol/L (3-11); Blood Urea Nitrogen 12.0 mg/dL (8-24); CO2, Blood 33.0 mmol/L (21-32); Calcium, Blood 8.6 mg/dL (8.5-10.1); Chloride, Blood 88.0 mmol/L (98-108); Creatinine, Blood 0.56 mg/dL (0.60-1.20); Glucose, Blood 112.0 mg/dL (70-99); Potassium, Blood 4.0 mmol/L (3.5-5.5); Sodium, Blood 121.0 mmol/L (136-145)
[2024-11-25 15:42] VITALS: BP 143/89
[2024-11-25] MEDS ORDERED: Polyethylene Glycol 3350 17 gm PO SCH (16:00)
--- NOTE | 2024-11-25 17:21 | NUR ---
SHIFT SUMMARY PT A/OX4. PT C/O L HIP PAIN, MEDICATED PER EMAR. PT HAS A FREE WATER FLUID RESTRICTION OF 1200ML. USES CEILING LIFT TO TRANSFER AND HAS A PUREWICK IN PLACE. PT REMAINS ON 3L NC, NO ACUTE CHANGES THIS SHIFT, CALL LIGHT WITHIN REACH.
[2024-11-25 19:27] VITALS: BP 128/65
[2024-11-26 04:30] VITALS: BP 133/71
--- NOTE | 2024-11-26 06:10 | NUR ---
Shift Summary Pt L hip pain well managed this shift with pillow positioning and additional scheduled pain medication from 2100. Pt rated his pain as low as 4/10 at one point. He slept about 5 hours early in the shift while on home CPAP. 1200 mL free water restriction maintaned. Purewick in place and patent. Pt remains on 3L, sometimes going on room air. Pt AOx4, lift transfers and repositions.
[2024-11-26 07:16] LABS: Hematocrit 36.5 % (37.0-53.0); Hemoglobin 12.4 g/dL (13.5-17.5); Mean Corpuscular HGB Conc 34.0 g/dL (31.5-36.5); Mean Corpuscular Volume 88 fL (80-100); NRBC ABSOLUTE 0.00 K/mm3 (0.00-0.02); NRBC Auto 0.0 /100 WBC (0.0-0.2); Platelet Count 147 K/mm3 (150-400); RDW Coefficient Variation 12.5 % (11.7-14.2); RDW Standard Deviation 40.2 fL (35.1-46.3)
[2024-11-26 07:38] LABS: Anion Gap 3.0 mmol/L (3-11); Blood Urea Nitrogen 12.0 mg/dL (8-24); CO2, Blood 34.0 mmol/L (21-32); Calcium, Blood 8.6 mg/dL (8.5-10.1); Chloride, Blood 89.0 mmol/L (98-108); Creatinine, Blood 0.61 mg/dL (0.60-1.20); Glucose, Blood 98.0 mg/dL (70-99); Potassium, Blood 4.2 mmol/L (3.5-5.5); Sodium, Blood 122.0 mmol/L (136-145)
[2024-11-26 08:31] VITALS: BP 132/72
[2024-11-26 15:20] VITALS: BP 136/75
[2024-11-26 19:17] VITALS: BP 125/57
--- NOTE | 2024-11-26 19:48 | NUR ---
SHIFT SUMMARY PATIENT ALERT AND INTERACTIVE. PATIENT CONTINUES TO HAVE PAIN. PATIENT MEDICATED PER MAR NEEDED/REQUESTED. PATIENT UP TO CHAIR X1 WITH LIFT. PATIENT CONTINUES TO HAVE ISSUES WITH INCONTINENCE. OrangeSlyceWICK SYSTEM USED. PATIENT ENCOURAGED TO TURN SIDE TO SIDE BUT PREFERS TO BE ON HIS BACK. PATIENT ON BARIATRIC BED. PATIENT ANXIOUS ABOUT GOING TO SNF. PATIENT WANTING TO GO HOME WHEN DISCHARGED. DISCUSSED OPTIONS AND CONCERNS ABOUT SAFE PLAN FOR DISCHARGE. PATIENT LOOKING ON LINE AT [facility].
[2024-11-27 04:32] VITALS: BP 131/71
[2024-11-27 06:13] LABS: Anion Gap 9.0 mmol/L (3-11); Blood Urea Nitrogen 11.0 mg/dL (8-24); CO2, Blood 28.0 mmol/L (21-32); Calcium, Blood 8.1 mg/dL (8.5-10.1); Chloride, Blood 91.0 mmol/L (98-108); Creatinine, Blood 0.59 mg/dL (0.60-1.20); Glucose, Blood 99.0 mg/dL (70-99); Potassium, Blood 4.3 mmol/L (3.5-5.5); Sodium, Blood 124.0 mmol/L (136-145)
--- NOTE | 2024-11-27 06:46 | NUR ---
SHIFT SUMMARY: Pt is admitted for weakness and is a full code. Is alert and able to make needs known. Pain has been managed with routing and PRN medications. PT was informed that for PRN medications he needed to request them when wanted and that they could not be given together. There needed to be about 45m between each. Iv to right wrist is patent with dressing that is CDI. on 3L of O2 to maintain SPO2 greater than 88%. Is on a freewater restriction of 1200ml. Early in the shift PT requested something to drink. When asked he stated cranberry and apple juice mixed. When asked what an alternative might be just in case they were not available. He was insistent that was what he wanted. When LN explained that sometimes they are not there he started to stammer with his words. He did after a moment say cierade. LN recommended to have a some water with it as it is formulated for people who are active. Also was stated that we needed to stay with in the free water restriction. He then stated that he has done research and knows what he needs and that this LN is an asshole. LN left the room and was able to get the drink that he requested as it was in pantry. When this LN provided the drink he stated that his was right and this LN is an asshole. He also expressed that the DISBURSEMENT CLERK was who he wanted to deal with the rest of the night. LN informed him that there are things the DISBURSEMENT CLERK can not help with. He stated understanding and expressed that he only deal with the DISBURSEMENT CLERK as much as possible. Reported interaction to the ALT charge.
[2024-11-27 07:57] VITALS: BP 132/57
--- NOTE | 2024-11-27 18:18 | NUR ---
SHIFT SUMMARY PATIENT ALERT AND INTERACTIVE. CONTINUES TO BE VERY TALKATIVE. PATIENT UP TO CHAIR WITH LIFT. PATIENT CONTINUES TO TALK ABOUT WANTING TO GO HOME WHEN DISCHARGED. PATIENT DOES NOT WANT TO GO TO REHAB. PATIENT CONTINUES TO LOOK UP LIFTS AND SLINGS FOR HOME USE. CONTINUE TO MEDICATE NEEDED FOR PAIN. PATIENT ABLE TO ADJUST SELF ONCE IN CHAIR.
[2024-11-27 19:21] VITALS: BP 123/64
[2024-11-28 04:30] VITALS: BP 133/75
[2024-11-28 06:27] LABS: Anion Gap 8.0 mmol/L (3-11); Blood Urea Nitrogen 16.0 mg/dL (8-24); CO2, Blood 31.0 mmol/L (21-32); Calcium, Blood 8.8 mg/dL (8.5-10.1); Chloride, Blood 91.0 mmol/L (98-108); Creatinine, Blood 0.52 mg/dL (0.60-1.20); Glucose, Blood 114.0 mg/dL (70-99); Potassium, Blood 4.7 mmol/L (3.5-5.5); Sodium, Blood 125.0 mmol/L (136-145)
--- NOTE | 2024-11-28 07:13 | NUR ---
SHIFT SUMMARY A/Ox4, VSS ON 1L, CPAP OVERNIGHT. PT UP TO CHAIR THIS SHIFT, TRANSFER TO BED WITH LIFT. PUREWICK IN USE. PT REPORTS INTERMITTENT SLEEP, PRN MELATONIN GIVEN. PT REPORTS 7/10 L HIP PAIN, MANAGED WITH SCHEDULED AND PRN MEDS. NO ACUTE CHANGES THIS SHIFT.
[2024-11-28 07:31] VITALS: BP 135/67
[2024-11-28 15:35] VITALS: BP 133/76
--- NOTE | 2024-11-28 17:32 | NUR ---
NO ACUTE CHANGES PT AOX4 AND COOPERATIVE OF CARE. PT IS A LIFT PT AND IS CURRENTLY UP IN CHAIR. PT HAS PERWICK IN PLACE AND CAN MAKE NEEDS KNOWN. PT IS TREATED FOR HIP PAIN PER EMAR. DR WILSON HAS BEEN CONSULTED AND WAS IN SEEING PT. CURRENTLY WATCHING TV WITH CALL LIGHT IN REACH WILL CONTINUE TO MONITOR.
[2024-11-28 19:16] VITALS: BP 119/66
[2024-11-29 05:46] LABS: Anion Gap 9.0 mmol/L (3-11); Blood Urea Nitrogen 15.0 mg/dL (8-24); CO2, Blood 29.0 mmol/L (21-32); Calcium, Blood 8.8 mg/dL (8.5-10.1); Chloride, Blood 92.0 mmol/L (98-108); Creatinine, Blood 0.54 mg/dL (0.60-1.20); Glucose, Blood 100.0 mg/dL (70-99); Potassium, Blood 4.7 mmol/L (3.5-5.5); Sodium, Blood 125.0 mmol/L (136-145); Uric Acid, Blood 3.8 mg/dL (3.5-7.2)
[2024-11-29 05:59] LABS: Osmolality, Serum 276.0 mos/KG (275-300)
--- NOTE | 2024-11-29 06:08 | NUR ---
REGENERATOR OPERATOR SUMMARY VSS. ALERT AND ORIENTED. WAS IN RECLINER AT SHIFT START. TOLERATED HS MEDS, PUREWICK IN USE DUE TO INCONTINENCE. WAS ASSISTED TO BED VIA LIFT, THEN HE HAD A SMALL BM, WAS CLEANED, LINEN CHANGED. HOB ELEVATED. ABLE TO REPOSITION SELF IN BED WITH ASSIST. AWAKE UNTIL EARLY AM HOURS TALKING ON HIS PHONE. REQUETED AND RECEIVED PO PAIN MEDS AND MUSCLE RELAXANT. HAS BEEN RESTING QUIETLY WITH FEW INTERRUPTIONS SINCE. CALL LIGHT IN REACH, RAILS UP X 3 AND BED IN LOW POSITION FOR SAFETY. RESPS EVEN. WILL MONITOR
[2024-11-29 07:31] VITALS: BP 120/70
[2024-11-29] MEDS ORDERED: UREA 15 GM POWD.PACK PO SCH (09:00)
[2024-11-29 14:54] VITALS: BP 117/61
--- NOTE | 2024-11-29 17:26 | NUR ---
SHIFT SUMMARY: A&OX4 THROUGHOUT SHIFT. PLEASANT WITH CARE PROVIDED. PT DENIED GETTING OUT OF BED THIS SHIFT. MEDICATED PER EMAR. NO ACUTE EVENTS THIS SHIFT. PT ON 1L O2 VIA NC FOR COMFORT. MEDICATED FOR PAIN PER EMAR. HOB ELEVATED EATING DINNER AT THIS TIME. BREATHING EQUAL AND NONLABORED. BED LOCKED AND IN THE LOWEST POSITION. CALL LT WITHIN REACH
[2024-11-29 20:00] VITALS: BP 125/61
[2024-11-30 04:31] VITALS: BP 140/73
--- NOTE | 2024-11-30 05:18 | NUR ---
POTATO SEED CUTTER SUMMARY PT A&OX4, VSS, EXCEPT ELEVATED BP. PT HAS BEEN IN BED FOR THE ENTIRETY OF THE SHIFT. SLEEPING ON AND OFF. CHEST RISE/RESPIRATIONS NOTED. CPAP USE WHEN ASLEEP W/ 3L BLED IN. 1L NC WHEN AWAKE W/ SATS >=92%. PT CAN REFUSE AND BE RELUCTANT TO REGULAR POSITION CHANGES AT TIMES. PT DOES HAVE BARIATRIC AIR BED W/ INFLATABLE SIDE BOLSTERS. PUREWICK REMAINS PATENT AND DRAINING TO SUCTION FOR INCONTINENCE. OXYCODONE/ACETAMINOPHEN ADMIN X 2 FOR BREAKTHROUGH CHRONIC HIP PAIN. USES CALL LIGHT AND VOICES NEEDS APPROPRIATELY. BED RAILS UP X 2, BED IN LOWEST POSITION, BED WHEELS LOCKED, PERSONAL BELONGINGS AND CALL LIGHT WITHIN REACH FOR SAFETY.
[2024-11-30 07:30] VITALS: BP 120/72
[2024-11-30 09:13] LABS: Anion Gap 8.0 mmol/L (3-11); Blood Urea Nitrogen 17.0 mg/dL (8-24); CO2, Blood 31.0 mmol/L (21-32); Calcium, Blood 9.0 mg/dL (8.5-10.1); Chloride, Blood 93.0 mmol/L (98-108); Creatinine, Blood 0.52 mg/dL (0.60-1.20); Glucose, Blood 110.0 mg/dL (70-99); Potassium, Blood 4.2 mmol/L (3.5-5.5); Sodium, Blood 128.0 mmol/L (136-145)
[2024-11-30 16:05] VITALS: BP 120/80
--- NOTE | 2024-11-30 16:34 | NUR ---
SHIFT SUMMARY: A&OX4 THROUGHOUT SHIFT. NO ACUTE EVENTS THIS SHIFT. UP TO CHAIR WITH USE OF A LIFT AND 2 PEOPLE. MEDICATED PER EMAR. 1L O2 VIA NC PRN FOR PT COMFORT. O2 SATS REMAINING >90%. DENIES SHORTNESS OF BREATH. CALL LT WITHIN REACH.
[2024-11-30 19:52] VITALS: BP 123/63
[2024-12-01 02:56] VITALS: BP 123/63
--- NOTE | 2024-12-01 04:54 | NUR ---
PLANER STONE SUMMARY PT A&OX4, VSS. PLEASANT AND COOPERATIVE W/ CARE. PT HAS BEEN ASLEEP FOR ABOUT HALF THE SHIFT. CHEST RISE/RESPIRATIONS NOTED. CPAP USE AT NIGHT WHEN ASLEEP W/ 1L BLED IN. 1L NC WHEN AWAKE W/ SATS >=92%. PUREWICK IN PLACE FOR INCONTINENCE. PUREWICK REMAINS PATENT AND DRAINING TO SUCTION. OXYCODONE/ACETAMINOPHEN ADMIN X 2 THIS SHIFT ON TOP OF SCHEDULED PAIN MEDS. ALONG W/ REPOSITIONING, APPEARS TO PROVIDE PAIN RELIEF W/ MODERATE TO GOOD EFFECT. PT USES CALL LIGHT APPROPRIATELY AND MAKES NEEDS KNOWN WELL. BED RAILS UP X 2, BED IN LOWEST POSITION, BED WHEELS LOCKED, PERSONAL BELONGINGS AND CALL LIGHT WITHIN REACH FOR SAFETY.
[2024-12-01 07:19] VITALS: BP 110/66
[2024-12-01 09:17] LABS: Anion Gap 9.0 mmol/L (3-11); Blood Urea Nitrogen 25.0 mg/dL (8-24); CO2, Blood 31.0 mmol/L (21-32); Calcium, Blood 9.1 mg/dL (8.5-10.1); Chloride, Blood 94.0 mmol/L (98-108); Creatinine, Blood 0.53 mg/dL (0.60-1.20); Glucose, Blood 138.0 mg/dL (70-99); Potassium, Blood 4.2 mmol/L (3.5-5.5); Sodium, Blood 130.0 mmol/L (136-145)
[2024-12-01 16:02] VITALS: BP 140/67
--- NOTE | 2024-12-01 16:41 | NUR ---
NO ACUTE CHANGES PT IS AOX4 AND COOPERATIVE OF CARE.PT HAS BEEN TREATED FOR PAIN PER EMAR R HIP CHRONIC HIP PAIN. PT HAS BEEN UP IN CHAIR FOR AFTERNOON VIA LIFT AND WAS ABLE TO WORK WITH PHYSICAL THERAPY AND WAS ABLE TO DO SOME STANDING EXCERSISES WITH STATIONARY CHAIR. NO DISTRESS NOTED AND CALL LIGHT IN REACH WILL CONTINUE TO MONITOR.
[2024-12-01 19:33] VITALS: BP 146/86
[2024-12-01] MEDS ORDERED: Miconazole Nitrate 2% 85 GM PWD TOP PRN (23:25)
[2024-12-02 01:56] VITALS: BP 131/70
--- NOTE | 2024-12-02 05:44 | NUR ---
END OF SHIFT SUMMARY: A&Ox4. PLEASANT AND COOPERATIVE WITH CARE. CALLS APPROPRIATELY AND IS ABLE TO ADVOCATE NEEDS EFFECTIVELY. PUREWICK IN PLACE SECONDARY TO LIMITED MOBILITY AND URGE INCONTINENT. NON-AMBULATORY; CEILING LIFT USED TO MOVE FROM RECLINER TO BED. ON AIR BED TO PROMOTE SKIN INTEGRITY. PAINFUL AND CALLS FOR PAIN MED [id number]. NON-PHARMACEUTICAL INTERVENTIONS SUCH HEAT AND REPOSITIONING INEFFECTIVE. VSS. BED IN LOWEST POSITION, CALL LIGHT WITHIN REACH, ALL NEEDS MET. REPORT TO ONCOMING NURSE.
[2024-12-02 07:30] LABS: Anion Gap 5.0 mmol/L (3-11); Blood Urea Nitrogen 25.0 mg/dL (8-24); CO2, Blood 32.0 mmol/L (21-32); Calcium, Blood 9.2 mg/dL (8.5-10.1); Chloride, Blood 93.0 mmol/L (98-108); Creatinine, Blood 0.58 mg/dL (0.60-1.20); Glucose, Blood 96.0 mg/dL (70-99); Potassium, Blood 4.4 mmol/L (3.5-5.5); Sodium, Blood 126.0 mmol/L (136-145)
[2024-12-02 07:44] VITALS: BP 112/70
[2024-12-02] MEDS ORDERED: Torsemide 20 MG TAB PO SCH (09:00)
[2024-12-02] MEDS ORDERED: LIDO700A20 TOP (13:29)
[2024-12-02] MEDS ORDERED: MELATONIN5 M1 PO (13:30)
[2024-12-02] MEDS ORDERED: MICONAZOLE NITR85 GM TOP (13:31)
[2024-12-02] MEDS ORDERED: OXYC10ER PO (13:32)
[2024-12-02] MEDS ORDERED: MIRALAX17 GM PO (13:33)
[2024-12-02 16:01] VITALS: BP 120/76
== END 2024-12-02 17:06 | disposition home health service (06) | DRG 644 ==
LOC: ER 23:39 → MEDS 23:40 → ER 23:40 → ERHOLD 23:40 → MEDS 23:40
PROVIDERS: Emergency Medicine; Hospitalist; Internal Medicine; ADMIT Student in an Organized Health Care Education/Training Program
PROC: 5A09357 Assistance with Respiratory Ventilation, Less than 24 Consecutive Hours, Continuous Positive Airway Pressure (ICD-10-PCS; principal; 2024-11-23)
PROC: 3E03329 Introduction of Other Anti-infective into Peripheral Vein, Percutaneous Approach (ICD-10-PCS; 2024-11-23)
DX: E22.2 Syndrome of inappropriate secretion of antidiuretic hormone (principal); I50.32 Chronic diastolic (congestive) heart failure; N39.0 Urinary tract infection, site not specified; Z68.43 Body mass index [BMI] 50.0-59.9, adult; J96.11 Chronic respiratory failure with hypoxia; J96.12 Chronic respiratory failure with hypercapnia; T50.2X5A Adverse effect of carbonic-anhydrase inhibitors, benzothiadiazides and other diuretics, initial encounter; T43.215A Adverse effect of selective serotonin and norepinephrine reuptake inhibitors, initial encounter; M16.0 Bilateral primary osteoarthritis of hip; G47.33 Obstructive sleep apnea (adult) (pediatric); E66.01 Morbid (severe) obesity due to excess calories; F32.A Depression, unspecified; F41.9 Anxiety disorder, unspecified; K58.9 Irritable bowel syndrome, unspecified; J44.89 Other specified chronic obstructive pulmonary disease; I11.0 Hypertensive heart disease with heart failure; N40.0 Benign prostatic hyperplasia without lower urinary tract symptoms; S20.211A Contusion of right front wall of thorax, initial encounter; X58.XXXA Exposure to other specified factors, initial encounter; Z99.81 Dependence on supplemental oxygen; Z88.0 Allergy status to penicillin; Z88.2 Allergy status to sulfonamides; Z98.84 Bariatric surgery status; Z79.51 Long term (current) use of inhaled steroids; Z79.891 Long term (current) use of opiate analgesic
CPT/HCPCS: 36415; 71045; 71260; 73502; 74177; 80048; 80053; 80069; 81001; 82533; 82803; 83690; 83735; 83880; 83930; 83935; 84300; 84439; 84443; 84550; 85025; 85027; 85610; 93005; 93010; 94640; 94660; 94664; 94762; 97110; 97163; 97530; 99285-25; A9270; G0378; J0696; J1650; J1885; J2270; J2405; J3010; J7030; J7050; Q9967

== ENCOUNTER 2025-01-31 14:52 | Inpatient (IN) | payer OTHER ==
[~2025-01-31] VITALS: Ht 172.7 cm; Wt 170.6 kg
[2025-01-31] VITALS (8 sets, daily range): BP systolic 93–137; BP diastolic 46–98
[~2025-01-31 14:52] MED LIST changes: +ERGO50000 PO; +LIDO700A20 TOP; +MELATONIN5 M1 PO; +METO5 PO; +MICONAZOLE NITR85 GM TOP; +ONDA4ODT MM; +OXYC10ER PO; +Percocet 10-321 EACH PO; +TRIA15CR3 TOP
[2025-01-31 15:34] LABS: Source, Urine Straight Cath
[2025-01-31 15:37] LABS: BASOPHILS ABSOLUTE AUTO 0.02 K/mm3 (0.00-0.23); BASOPHILS PERCENT AUTO 0 % (0-2); EOSINOPHILS ABSOLUTE AUTO 0.05 K/mm3 (0.00-0.68); EOSINOPHILS PERCENT AUTO 1 % (0-6); Hematocrit 43.6 % (37.0-53.0); Hemoglobin 14.3 g/dL (13.5-17.5); IMMATURE GRAN ABSOLUTE AUTO 0.03 K/mm3 (0.00-0.10); IMMATURE GRAN PERCENT AUTO 0 % (0-1); LYMPHOCYTES ABSOLUTE AUTO 0.53 K/mm3 (0.84-5.20); LYMPHOCYTES PERCENT AUTO 5 % (21-46); MONOCYTES ABSOLUTE AUTO 0.38 K/mm3 (0.16-1.47); MONOCYTES PERCENT AUTO 4 % (4-13); Mean Corpuscular HGB Conc 32.8 g/dL (31.5-36.5); Mean Corpuscular Volume 92 fL (80-100); NEUTROPHILS ABSOLUTE AUTO 9.67 K/mm3 (1.96-9.15); NEUTROPHILS PERCENT AUTO 90 % (41-73); NRBC ABSOLUTE 0.00 K/mm3 (0.00-0.02); NRBC Auto 0.0 /100 WBC (0.0-0.2); Platelet Count 111 K/mm3 (150-400); RDW Coefficient Variation 12.3 % (11.7-14.2); RDW Standard Deviation 42.2 fL (35.1-46.3)
[2025-01-31 15:42] LABS: Color, Urine Yellow (P-Yellow); Glucose Qualitative, Urine Neg (Neg); Ketones, Urine Neg (Neg); Leukocyte Esterase, Urine 2+ (Neg); Protein, Urine 1+ (Neg); Specific Gravity, Urine 1.015 (1.003-1.022); Urobilinogen, Urine 1+ (Normal)
[2025-01-31] MEDS ORDERED: NS 1,000 ML IV SCH ×3 (15:50→17:45)
[2025-01-31 15:57] LABS: Alanine Aminotransfer (ALT/SGP 44.0 U/L (12-78); Albumin, Blood 4.0 g/dL (3.4-5.0); Albumin/Globulin Ratio 1.0 (0.8-1.8); Anion Gap 8.0 mmol/L (3-11); Aspartate Aminotrans (AST/SGOT 38.0 U/L (12-37); Bilirubin, Total 1.7 mg/dL (0.1-1.0); Blood Urea Nitrogen 34.0 mg/dL (8-24); CO2, Blood 33.0 mmol/L (21-32); Calcium, Blood 9.2 mg/dL (8.5-10.1); Chloride, Blood 100.0 mmol/L (98-108); Creatinine, Blood 1.32 mg/dL (0.60-1.20); Globulin, Blood 4.0 g/dL (2.2-4.0); Glucose, Blood 105.0 mg/dL (70-99); Potassium, Blood 4.6 mmol/L (3.5-5.5); Sodium, Blood 136.0 mmol/L (136-145); Total Protein, Blood 8.0 g/dL (6.4-8.2)
[2025-01-31 16:22] LABS: Influenza A, PCR NEGATIVE (NEGATIVE); Influenza B, PCR NEGATIVE (NEGATIVE); Resp Syncytial Virus, PCR NEGATIVE (NEGATIVE); SARS-Cov-2 (COVID-19) PCR, MMC NEGATIVE (NEGATIVE)
[2025-01-31 16:27] LABS: Bilirubin, Urine 1+ (Neg)
[2025-01-31 16:33] LABS: Red Blood Cells, Urine 0-2 /hpf (0-2)
[2025-01-31] MEDS ORDERED: CefTRIAXone Sodium 2,000 MG in NS 100 ML IV ONE (18:05)
[2025-01-31] MEDS ORDERED: Ondansetron HCl 2 MG / ML 2ML Vial IV PRN (19:10)
[2025-01-31] MEDS ORDERED: FLU VACC TS2025-26(6MOS UP)/PF 45 MCG/0.5 ML SYRINGE IM SCH (19:10)
[2025-01-31] MEDS ORDERED: Vancomycin (Pharmacy Consult) IV SCH (19:15)
[2025-01-31 19:40] LABS: pH Blood Venous 7.41 (7.34-7.37)
[2025-01-31] MEDS ORDERED: Cefepime HCl 1,000 MG in NS 100 ML IV SCH (21:00)
[2025-01-31] MEDS ORDERED: Lactobacil 2-S.Thermo-Bifido 1 1 Cap PO SCH (21:00)
[2025-01-31] MEDS ORDERED: BUPRENORPHN-NA1 EACH (21:10)
--- NOTE | 2025-01-31 22:09 | NUR ---
ADMIT TO ICU 6: PT ARRIVAL TO ICU 6 AT 2030 VIA ED JESUSITARCLAUDE, SLID WITH SLIDER SHEET TO ICU BED. PT A/Ox4 AND VERY TALKATIVE, ABLE TO MAKE NEEDS KNOWN. BP STABLE, MAP>65 ON LEVOPHED AT 6 MCG/KG/MIN ON ARRIVAL. SPO2>90% ON 2L NC, PT STATES HE WEARS 1-2L NC AT HOME ONLY SOMETIMES WHEN HE IS SICK OR SLEEPING. PURWICK PLACED FOR PATIENT COMFORT, YELLOW URINE NOTED. AT BESIDE ABLE TO ASSIST W/PT MED REC AND INFORMATION. WILL UPDATE NEEDED.
[2025-01-31] MEDS ORDERED: OxyCODONE 10/Acetamin 325 TABLET PO PRN (22:50)
[2025-02-01] VITALS (28 sets, daily range): BP systolic 98–148; BP diastolic 32–114
[2025-02-01] MEDS ORDERED: Buprenorphine HCL/Naloxone HCL 8MG-2MG Tab SL SCH ×3 (00:35→09:00)
[2025-02-01] MEDS ORDERED: Buprenorphine HCL/Naloxone HCL 2-0.5MG 1 EA SL SCH ×2 (00:50→09:00)
--- NOTE | 2025-02-01 05:47 | NUR ---
SHIFT SUMMARY: PT A/Ox4 AND ABLE TO MAKE NEEDS KNOWN. SBP 140s, MAP>65. LEVOPHED OFF AROUND 2200. MONITOR SHOWS SINUS RYTHM W/ BBB, RATE 80s. SPO2>90% ON 2L NC, PT ABLE TO WEAR CPAP FOR SLEEP. PT COMPLAINS OF CHRONIC PAIN IN HIS HIPS/LEGS, MEDICATED PER EMAR. PURWICK IN PLACE DRAINING TO SUCTION. WILL REPORT TO ONCOMING RN.
[2025-02-01 06:17] LABS: BASOPHILS ABSOLUTE AUTO 0.02 K/mm3 (0.00-0.23); BASOPHILS PERCENT AUTO 0 % (0-2); EOSINOPHILS ABSOLUTE AUTO 0.01 K/mm3 (0.00-0.68); EOSINOPHILS PERCENT AUTO 0 % (0-6); Hematocrit 37.2 % (37.0-53.0); Hemoglobin 12.1 g/dL (13.5-17.5); IMMATURE GRAN ABSOLUTE AUTO 0.02 K/mm3 (0.00-0.10); IMMATURE GRAN PERCENT AUTO 0 % (0-1); LYMPHOCYTES ABSOLUTE AUTO 0.62 K/mm3 (0.84-5.20); LYMPHOCYTES PERCENT AUTO 7 % (21-46); MONOCYTES ABSOLUTE AUTO 0.52 K/mm3 (0.16-1.47); MONOCYTES PERCENT AUTO 6 % (4-13); Mean Corpuscular HGB Conc 32.5 g/dL (31.5-36.5); Mean Corpuscular Volume 93 fL (80-100); NEUTROPHILS ABSOLUTE AUTO 8.16 K/mm3 (1.96-9.15); NEUTROPHILS PERCENT AUTO 87 % (41-73); NRBC ABSOLUTE 0.00 K/mm3 (0.00-0.02); NRBC Auto 0.0 /100 WBC (0.0-0.2); Platelet Count 106 K/mm3 (150-400); RDW Coefficient Variation 12.5 % (11.7-14.2); RDW Standard Deviation 42.9 fL (35.1-46.3)
[2025-02-01 06:36] LABS: Alanine Aminotransfer (ALT/SGP 31.0 U/L (12-78); Albumin, Blood 2.9 g/dL (3.4-5.0); Albumin/Globulin Ratio 0.9 (0.8-1.8); Anion Gap 5.0 mmol/L (3-11); Aspartate Aminotrans (AST/SGOT 22.0 U/L (12-37); Bilirubin, Total 1.3 mg/dL (0.1-1.0); Blood Urea Nitrogen 24.0 mg/dL (8-24); CO2, Blood 30.0 mmol/L (21-32); Calcium, Blood 8.7 mg/dL (8.5-10.1); Chloride, Blood 107.0 mmol/L (98-108); Creatinine, Blood 0.86 mg/dL (0.60-1.20); Globulin, Blood 3.3 g/dL (2.2-4.0); Glucose, Blood 118.0 mg/dL (70-99); Magnesium, Blood 2.4 mg/dL (1.6-2.4); Potassium, Blood 4.2 mmol/L (3.5-5.5); Sodium, Blood 138.0 mmol/L (136-145); Total Protein, Blood 6.2 g/dL (6.4-8.2)
[2025-02-01] MEDS ORDERED: Buprenorphine HCL/Naloxone HCL 2-0.5MG 1 EA SL PRN (07:45)
[2025-02-01] MEDS ORDERED: Enoxaparin 60 MG/0.6 ML SYR SC SCH (09:00)
[2025-02-01] MEDS ORDERED: Ondansetron 4 MG SoluTab MM PRN (13:35)
[2025-02-01] MEDS ORDERED: Formoterol/Mometasone MDI 5/200 mcg 13 GM INH SCH (14:15)
[2025-02-01] MEDS ORDERED: Ipratropium/Albuterol SulF 2.5-0.5MG/3 ML Amp INH PRN (14:15)
[2025-02-01] MEDS ORDERED: BUSP10 PO (18:00)
[2025-02-01] MEDS ORDERED: Budeprion Xl300 MG PO (18:02)
--- NOTE | 2025-02-01 18:31 | NUR ---
SHIFT SUMMARY NEURO: A/O X4, ABLE TO MAKE HIS NEEDS KNOWN AND CALLS APPROPRIATELY. +ANXIETY AND FREQUENT CRYING TOWARDS THE END OF THE DAY. FULL ROM BUE. SOME CONTRACTION, WEAKNESS BLE. PULM: COARSE THIS AM AND BIBASILAR CRACKLES THIS EVENING. ON 2LPM VIA NC MAINTAINING O2 SAT >90%. NO COUGH BUT STATES HAD SOME NASAL DISCHARGE. UNABLET TO COLLECT SPUTUM SAMPLES NONE EXPECTORATED. CARDIAC: SR SBP 90-120S. HR 80S. GI: ABDOMEN IS FIRM ON LEFT AND VISIBLE UMBILICAL HERNIA. DENIES ANY TENDERNESS. BOWEL TONES HYPOACTIVE. LAST BM 01/30. GOOD APPETITE AND PO INTAKE. RADHA APPLE JUICE AND CRANBERRY LABLED AND IN THE FRIDGE. : MALE PUREWICK PLACED TO SUCTION. SCROTUM AND LOWER PANNUS ENLARGED AND DISCOLORERD. URINE IS DARK YELLOW. PT REPORTS HX OF URINARY RETENTION. SKIN: REDNESS ABOVE COCCYX, DISCOLORATION TO GENERAL DANIELLE AREA, PURPLE BUT BLANCHABLE. TURNED Q2 USING 2 WEDGES USED FOR BIG TURNS TO RELIEVE PRESSURE. PT REFUSED AT DINNER AND WAS PLACED SUPINE. APPLIED BARRIER CREAM. BABY POWDER PLACED IN ABDOMIAL FOLDS, NO VISIBLE REDNESS. AT BEDSIDE THIS EVENING.
--- NOTE | 2025-02-01 19:00 | NUR ---
ASSUMPTION OF CARE CARE OF PT ASSUMED FOLLOWING BEDSIDE SHIFT REPORT FROM DAY RN. PT LYING IN BARIATRIC BED IN NO APPARENT DISTRESS. ALERT AND ORIENTED WITH DIFFICULTY COMMUNICATING THOUGHTS IN A TIMELY MANNER, SAYS HIS BRAIN IS SLOWER THAN NORMAL. 98.1 F. PAIN IN HIPS WILL BE TREATED WITH SCHEDULED AND PRN BUPRENORPHINE. PT CAN MOVE ALL EXTREMITIES, UPPPER MORE THAN LOWER. PT IN SINUS RHYTHM, RATE OF 73 AND STABLE BP. ON 2L NC WITH SATURATION > 90%. PT TO BE ON CPAP/BIPAP WHEN SLEEPING, ALTHOUGH PT FELL ASLEEP AFTER ASSESSMENT FOR 1.5 HOURS AND DID NOT DESATURATE. WILL MONITOR. PT DENIES CHEST PAIN/PRESSURE OR SOB. PT DENIES AB PAIN, N/V, THOUGH ENDORSES DECREASED APPETITE THAT HAS BOTHERED HIM FOR WEEKS. PUREWICK IN PLACE TO SUCTION DRAINING MCKENNA URINE. SALINE LOCKED WITH SEVERAL ABXS SCHEDULED FOR ADMIN. OF NOTE, PT'S LOWER/CENTER PANUS IN RED, WARM AND PAINFUL ON LEFT SIDE. ALSO, Q2 HRS TURNS WILL BE USED TO OFFLOAD COCCYX, ALTHOUGH PT SAYS THE LESION IN THAT AREA IS NOT A PRESSURE SORE. WILL REVIEW AND CONTINUE PLAN OF CARE.
[2025-02-02] VITALS (9 sets, daily range): BP systolic 110–149; BP diastolic 58–85
--- NOTE | 2025-02-02 08:01 | NUR ---
SHIFT SUMMARY PT LYING IN BED IN NO APPARENT DISTRESS, ALERT AND ORIENTED, THOUGH SPEECH CONTINUES TO BE SLOW, DIFFICULTY FINDING RIGHT WORD TO SAY. AFEBRILE. MAEW UPPER MORE SO THAN LOWER. PAIN IN HIPS CONTROLLED WITH SCHEDULED AND PRN SUBOXONE. PT COMPLAINED OF MUSCLE ACHES/CRAMPS AND ASKED ABOUT HOME FLEXIRIL WHICH WAS ORDERED FOR HIM. PT IN SINUS RHYTHM ALL NIGHT, WITH APPARENT BBB, RATE 65-85, AND STABLE BP. PT ON 2L NC WITH SATURATION 98-100%. PT DID NOT DESATURATE EVEN WHILE SLEEPING WITHOUT CPAP/BIPAP. PT DENIES CHEST PAIN/PRESSURE OR SOB. PT DENIES N/V. PT HAS PAIN IN CENTER/LOWER PANUS, PARTICULARLY ON LEFT SIDE, WHICH IS ERYTHEMIC, WARM AND TENDER. UMBILICAL HERNIA IS STILL VISIBLE/PALPABLE AND TENDER TO PALPATION IN THE AREA. PT HAS NOT HAD A BM SINCE ADMIT, SO A BOWEL REGIMEN WAS STARTED THIS AM. PUREWICK IN PLACE TO SUCTION, DRAINED 900ML OF MCKENNA URINE DURING SHIFT. PT SALINE LOCKED. BEDSIDE SHIFT REPORT GIVEN TO DAY RN.
--- NOTE | 2025-02-02 08:15 | NUR ---
ASSUMPTION OF CARE ASSUMED CARE OF PT APPROX 0700. PT IS ALERT AND ORIENTED, ABLE TO FOLLOW DIRECTIONS AND ANSWER QUESTIONS. REMAINS IN SINUS RHYTHM WITH RATE IN THE LOW 70S, BP STABLE WITH MAP >65. SATS >90% ON 2L NC, HAS CPAP MACHINE FOR SLEEPING, DECLINED LAST NIGHT. PT DENIES UNMET NEEDS AT THIS TIME, CALL LIGHT WITHIN REACH.
[2025-02-02] MEDS ORDERED: BuPROPion HCl SR 100 MG TabCR PO SCH (09:00)
[2025-02-02] MEDS ORDERED: CefTRIAXone Sodium 2,000 MG in NS 100 ML IV SCH (09:00)
[2025-02-02] MEDS ORDERED: Torsemide 20 MG TAB PO SCH (09:00)
[2025-02-02] MEDS ORDERED: Polyethylene Glycol 3350 17 gm PO SCH (09:00)
[2025-02-02] MEDS ORDERED: Potassium Chloride 10 Meq Tablet SA PO SCH (09:00)
[2025-02-02 09:08] LABS: BASOPHILS ABSOLUTE AUTO 0.02 K/mm3 (0.00-0.23); BASOPHILS PERCENT AUTO 0 % (0-2); EOSINOPHILS ABSOLUTE AUTO 0.07 K/mm3 (0.00-0.68); EOSINOPHILS PERCENT AUTO 2 % (0-6); Hematocrit 35.6 % (37.0-53.0); Hemoglobin 11.5 g/dL (13.5-17.5); IMMATURE GRAN ABSOLUTE AUTO 0.02 K/mm3 (0.00-0.10); IMMATURE GRAN PERCENT AUTO 0 % (0-1); LYMPHOCYTES ABSOLUTE AUTO 0.78 K/mm3 (0.84-5.20); LYMPHOCYTES PERCENT AUTO 17 % (21-46); MONOCYTES ABSOLUTE AUTO 0.38 K/mm3 (0.16-1.47); MONOCYTES PERCENT AUTO 8 % (4-13); Mean Corpuscular HGB Conc 32.3 g/dL (31.5-36.5); Mean Corpuscular Volume 92 fL (80-100); NEUTROPHILS ABSOLUTE AUTO 3.42 K/mm3 (1.96-9.15); NEUTROPHILS PERCENT AUTO 73 % (41-73); NRBC ABSOLUTE 0.00 K/mm3 (0.00-0.02); NRBC Auto 0.0 /100 WBC (0.0-0.2); Platelet Count 103 K/mm3 (150-400); RDW Coefficient Variation 12.7 % (11.7-14.2); RDW Standard Deviation 42.9 fL (35.1-46.3)
[2025-02-02 09:54] LABS: Anion Gap 6 mmol/L (3-11); Blood Urea Nitrogen 15 mg/dL (8-24); CO2, Blood 30 mmol/L (21-32); Calcium, Blood 8.9 mg/dL (8.5-10.1); Chloride, Blood 104 mmol/L (98-108); Creatinine, Blood 0.57 mg/dL (0.60-1.20); Glucose, Blood 99 mg/dL (70-99); Potassium, Blood 3.7 mmol/L (3.5-5.5); Prostate Specific Antigen <0.010 ng/mL (0.000-4.000); Sodium, Blood 136 mmol/L (136-145)
--- NOTE | 2025-02-02 17:46 | NUR ---
SHIFT SUMMARY: PT ARRIVED FROM THE ICU THIS EVENING. PT IS A LIFT PT AND IS IN A BARRIATRIC LIFT BED. PT IS INCONT OF BOWELS AND BLADDER AND IS A Q2 TURN. PT IS ON TELLY. PT IS AOX4.
[2025-02-02] MEDS ORDERED: Vancomycin (Pharmacy Consult) IV SCH (23:15)
[2025-02-03 00:06] VITALS: BP 153/82
[2025-02-03 00:16] LABS: Vancomycin, Random 8.9 ug/mL
[2025-02-03] MEDS ORDERED: NS 250 ML IV PRN (01:20)
--- NOTE | 2025-02-03 04:59 | NUR ---
SHIFT SUMMARY TRANSFER FROM ICU TO #364 02/02/25. IMPROVING PNA, E. COLI UTI, AND SEPSIS. LAB NOTIFIED OF GRAM + BLOOD CX IN CLUSTERS, PROVIDER ADDED ON VANCOMYCIN. PATENT IVs IN RHA AND LHA. A&OX4, BEDBOUND, LIFT-ASSIST IN VENESSA BED. MEDICATED AND REPOSIITONED Q2H PER EMAR FOR CHRONIC B/L HIP PAIN R>L. REMAINS ON BASELINE 2L NC, TRANSITIONS INTERMITTENTLY TO BIPAP THIS HS. PUREWICK DRAINING CLEAR YELLOW URINE. TELE: SB, RATE IN 40S-60s, PVCs. HAS BLANCHABLE ERYTHEMA WITH PSORIASIFORM PLAQUES AND MACERATED PINK-RED TISSUE WITHIN DEEP COCCYX DIMPLE. SUGGESTING TO ONCOMING STAFF FOR REQUEST NYSTATIN POWDER PER PT REQUEST. PT STATES PLAN TO START INJECTABLE BIOLOGIC OUTPT FOR PSORIASIS. ANTIMICROBIAL SILVER CLOTH UNDER FUPA FOR YEAST WITH GOOD EFFECT.
[2025-02-03 06:04] VITALS: BP 150/75
[2025-02-03 07:44] VITALS: BP 135/74
[2025-02-03] MEDS ORDERED: ZINC OXIDE/PETROLATUM, YELLOW 1 APPLIC/71 GM PASTE TOP PRN (09:45)
[2025-02-03 15:43] VITALS: BP 154/87
[2025-02-03 20:45] VITALS: BP 151/79
[2025-02-04 00:35] VITALS: BP 146/78
[2025-02-04 04:50] VITALS: BP 165/85
[2025-02-04 05:09] LABS: Alanine Aminotransfer (ALT/SGP 21.0 U/L (12-78); Albumin, Blood 2.6 g/dL (3.4-5.0); Albumin/Globulin Ratio 0.8 (0.8-1.8); Anion Gap 8.0 mmol/L (3-11); Aspartate Aminotrans (AST/SGOT 14.0 U/L (12-37); Bilirubin, Total 0.4 mg/dL (0.1-1.0); Blood Urea Nitrogen 9.0 mg/dL (8-24); CO2, Blood 33.0 mmol/L (21-32); Calcium, Blood 8.7 mg/dL (8.5-10.1); Chloride, Blood 100.0 mmol/L (98-108); Creatinine, Blood 0.55 mg/dL (0.60-1.20); Globulin, Blood 3.4 g/dL (2.2-4.0); Glucose, Blood 97.0 mg/dL (70-99); Potassium, Blood 3.8 mmol/L (3.5-5.5); Sodium, Blood 137.0 mmol/L (136-145); Total Protein, Blood 6.0 g/dL (6.4-8.2)
--- NOTE | 2025-02-04 06:37 | NUR ---
SUMMARY: PT A/OX4, CALLS APPROPRIATELY TO ENDORSE NEEDS AND IS PLEASEANT AND COOPERATIVE W/CARE. HE'S BEDBOUND W/LIFT REQUIRED AT BASELINE AND TURN SCHEDULE MAINTAINED W/PILLOWS AND WEDGES ON VENESSA BED. PUREWIC IS IN PLACE FOR URINARY INCONTINENCE AND BARRIER CREAM APPLIED TO BLANCHABLE ERYTHEMA AREAS OF BUTTOCKS W/MACERATED TISSUE. PT ALSO HAS DISCOLORED VENOUS STASIS APPEARING LEGS AND SCATTERED AREAS OF PSORIAFORM PLAQUES. IV ABX BEING RECEIVED PER EMAR THEN SL'D. HE HAS BILAT HIP PAIN W/SHEDULED + PRN SUBOXONE AND FLEXERIL RECEIVED FOR GOOD EFFECT. HE TOLERATED 3L NC AND HOME BIPAP AT HS W/CONT BIOX INTACT. PT REMAINS ON TELE IN NSR W/BBB AT 60'S BPM. NO ACUTE CHANGES, VSS AND AFEBRILE. WILL REPORT TO DAY RN.
[2025-02-04 08:03] VITALS: BP 143/73
--- NOTE | 2025-02-04 12:44 | NUR ---
NOTIFIED DR. PERAZA OF PT COMPLAINT OF PAIN TO PARTS OF GUMS. PT MENTIONED TO ME YESTERDAY HE THOUGHT IT COULD BE THRUSH BUT NO WHITE PATCHY AREAS WERE VISUALIZED IN MOUTH. DR. PERAZA STATED HE WOULD ROUND LATER TODAY TO EVALUATE PT MOUTH AND PLACED AN ORDER FOR DENTAL HYGENIST CONSULT.
--- NOTE | 2025-02-04 13:55 | NUR ---
DENTAL HYGENIST ROUNDED ON PT AND STATED IT LOOKS LIKE ACTIVE HERPES SIMPLEX OUTBREAK WITH MULTIPLE LESIONS IN THE MOUTH AND A COLD SORE ON THE LIP. DR. PERAZA WAS NOTIFIED AND STATED HE WOULD START SOME TREATMENT. LESIONS HAVE BEEN INHIBITING PT ABILITY TO EAT SO CHANGED DIET TO SOFT BITE SIZE FOR COMFORT.
[2025-02-04 16:43] VITALS: BP 154/75
--- NOTE | 2025-02-04 19:16 | NUR ---
SUMMARY PT A/OX4. 2L NC PRN WHILE AWAKE. SATTING 91-92% ON ROOM AIR WITH CONTINUOUS PULSE OX. PT ANXIOUS TODAY WANTING TO GO HOME, STILL PENDING BLOOD CULTURES. PRN BUSPAR GIVEN TWICE TODAY ORDERED FOR ANXIETY. REPOSITIONED WITH WEDGES BUT PT HAS BEEN PULLING THOSE OUT HIMSELF WHEN HE CAN NO LONGER TOLERATE THEM. PUREWICK IN PLACE. NO BOWEL MOVEMETN TODAY. MIRILAX HELD PT HAD TWO LARGE BOWEL MOVEMENTS YESTERDAY AND PT REFUSED TODAYS DOSE. IV ANTIBIOTICS INFUSING TO LEFT HAND IV. DENTAL HYGENIST CONSULT ORDERED DUE TO PT COMPLAINT OF MOUTH PAIN. VALTREX STARTED TDOAY TO RESOLVE HERPES OUTBREAK WITHIN MOUTH. EDUCATED PT ON HOW TO PREVENT THE SPREAD TO OTHERS HE HAS BEEN HAVING VISITORS IN THE EVENING. PT VERBALIZED UNDERSTANDING. LIFT ASSIST. PT WAS OFFERED UP TO CHAIR TODAY AND REFUSED. PT WAS ALSO OFFERED BED BATH THIS EVENING AND REFUSED.
[2025-02-04 21:21] VITALS: BP 182/95
[2025-02-04 21:25] VITALS: BP 157/56
[2025-02-05 04:26] VITALS: BP 175/90
[2025-02-05 05:00] LABS: BASOPHILS ABSOLUTE AUTO 0.03 K/mm3 (0.00-0.23); BASOPHILS PERCENT AUTO 1 % (0-2); EOSINOPHILS ABSOLUTE AUTO 0.18 K/mm3 (0.00-0.68); EOSINOPHILS PERCENT AUTO 4 % (0-6); Hematocrit 34.6 % (37.0-53.0); Hemoglobin 11.3 g/dL (13.5-17.5); IMMATURE GRAN ABSOLUTE AUTO 0.02 K/mm3 (0.00-0.10); IMMATURE GRAN PERCENT AUTO 1 % (0-1); LYMPHOCYTES ABSOLUTE AUTO 1.00 K/mm3 (0.84-5.20); LYMPHOCYTES PERCENT AUTO 23 % (21-46); MONOCYTES ABSOLUTE AUTO 0.31 K/mm3 (0.16-1.47); MONOCYTES PERCENT AUTO 7 % (4-13); Mean Corpuscular HGB Conc 32.7 g/dL (31.5-36.5); Mean Corpuscular Volume 90 fL (80-100); NEUTROPHILS ABSOLUTE AUTO 2.74 K/mm3 (1.96-9.15); NEUTROPHILS PERCENT AUTO 64 % (41-73); NRBC ABSOLUTE 0.00 K/mm3 (0.00-0.02); NRBC Auto 0.0 /100 WBC (0.0-0.2); Platelet Count 131 K/mm3 (150-400); RDW Coefficient Variation 12.0 % (11.7-14.2); RDW Standard Deviation 39.2 fL (35.1-46.3)
[2025-02-05 05:33] LABS: Alanine Aminotransfer (ALT/SGP 25.0 U/L (12-78); Albumin, Blood 2.4 g/dL (3.4-5.0); Albumin/Globulin Ratio 0.8 (0.8-1.8); Anion Gap 6.0 mmol/L (3-11); Aspartate Aminotrans (AST/SGOT 22.0 U/L (12-37); Bilirubin, Total 0.4 mg/dL (0.1-1.0); Blood Urea Nitrogen 9.0 mg/dL (8-24); CO2, Blood 29.0 mmol/L (21-32); Calcium, Blood 7.7 mg/dL (8.5-10.1); Chloride, Blood 105.0 mmol/L (98-108); Creatinine, Blood 0.49 mg/dL (0.60-1.20); Globulin, Blood 3.2 g/dL (2.2-4.0); Glucose, Blood 86.0 mg/dL (70-99); Potassium, Blood 3.4 mmol/L (3.5-5.5); Sodium, Blood 137.0 mmol/L (136-145); Total Protein, Blood 5.6 g/dL (6.4-8.2)
--- NOTE | 2025-02-05 05:43 | NUR ---
NOC SHIFT SUMMARY PT C/O INSOMNIA, MEDICATED PER EMAR. PT SLEPT FOR APPROX 3 HRS AND TOLERATED CPAP WELL. MEPILEX APPLIED TO THE COCCYX, SACRUM, AND R HIP FOR BLANCHABLE REDNESS. NO OTHER ACUTE CHANGES. CALL LIGHT WITHIN REACH AND PT ABLE TO MAKE NEEDS KNOWN.
[2025-02-05 07:27] VITALS: BP 146/73
[2025-02-05] MEDS ORDERED: DiphenhydrAMINE HCl 50 MG/ML 1ML Vial IV PRN (07:30)
[2025-02-05] MEDS ORDERED: Trimethoprim/Sulfamethoxazole DS Tab PO SCH (08:00)
[2025-02-05] MEDS ORDERED: VISBIOME 112.51 EACH PO (11:37)
[2025-02-05] MEDS ORDERED: CIPR500 PO (11:37)
--- NOTE | 2025-02-05 12:37 | NUR ---
DISCHARGE NOTE PATIENT A/OX4, ABLE TO MAKE NEEDS KNOWN. ANXIOUS BUT COOPERATIVE WITH CARE. DISCHARGE PACKET COMPLETED AND THIS RN LEFT FOR LUNCH BREAK, BREAK NURSE INFORMED THAT TRANSPORTATION WAS ON THE WAY TO ART INSTRUCTOR PATIENT. BREAK NURSE INTENDED TO PROVIDE DISCHARGE INSTRUCTIONS, HOWEVER TRANSPORTATION ARRIVED AND TOOK PATIENT WITHOUT CHECKING IN WITH BREAK NURSE. DISHCRAGE PACLET WAS RAN DOWNSTAIRS TO PATIENT BY SANDWICH WRAPPER WHILE THIS RN ON BREAK. IV REMOVED PRIOR TO DISCHARGE. NEW MEDICATIONS FAXED TP [facility] AND PATIENT CALLED TO DISCUSS DISCHARGE INFORMATION.
== END 2025-02-05 11:56 | disposition home or self-care (01) | DRG 871 ==
LOC: ER 14:52 → MEDS 19:07 → ICUE 19:07 → MEDS 02-02 16:33
PROVIDERS: Student in an Organized Health Care Education/Training Program; ADMIT Student in an Organized Health Care Education/Training Program
PROC: 3E033XZ Introduction of Vasopressor into Peripheral Vein, Percutaneous Approach (ICD-10-PCS; principal; 2025-01-31)
PROC: 3E03329 Introduction of Other Anti-infective into Peripheral Vein, Percutaneous Approach (ICD-10-PCS; 2025-01-31)
PROC: 5A09357 Assistance with Respiratory Ventilation, Less than 24 Consecutive Hours, Continuous Positive Airway Pressure (ICD-10-PCS; 2025-02-02)
DX: A41.1 Sepsis due to other specified staphylococcus (principal); J18.9 Pneumonia, unspecified organism; R65.21 Severe sepsis with septic shock; J96.21 Acute and chronic respiratory failure with hypoxia; I50.32 Chronic diastolic (congestive) heart failure; N17.9 Acute kidney failure, unspecified; N39.0 Urinary tract infection, site not specified; E66.2 Morbid (severe) obesity with alveolar hypoventilation; I11.0 Hypertensive heart disease with heart failure; F32.A Depression, unspecified; F41.9 Anxiety disorder, unspecified; G89.29 Other chronic pain; M25.559 Pain in unspecified hip; I45.10 Unspecified right bundle-branch block; J44.89 Other specified chronic obstructive pulmonary disease; D69.6 Thrombocytopenia, unspecified; K42.9 Umbilical hernia without obstruction or gangrene; E66.813 Obesity, class 3; L40.50 Arthropathic psoriasis, unspecified; N40.1 Benign prostatic hyperplasia with lower urinary tract symptoms; R33.8 Other retention of urine; N41.9 Inflammatory disease of prostate, unspecified; Z98.84 Bariatric surgery status; Z90.89 Acquired absence of other organs; Z98.890 Other specified postprocedural states; Z79.51 Long term (current) use of inhaled steroids; Z79.899 Other long term (current) drug therapy; Z88.0 Allergy status to penicillin; Z88.2 Allergy status to sulfonamides; Z88.8 Allergy status to other drugs, medicaments and biological substances
CPT/HCPCS: 36415; 71045; 71260; 74177; 80048; 80053; 80202; 81001; 82803; 83605; 83690; 83735; 84145; 85025; 85379; 87040; 87077; 87086; 87186; 87637; 93005; 93010; 94640; 94660; 94664; 94762; 96365-59; 96366; 96368; 97110; 97112; 97161; 97165; 99285-25; A9270; G0103; J0456; J0572; J0692; J0696; J1650; J3373; J3480; J7030; J7040; J7050; Q9967